=== PATIENT | male | born 1970 | race Caucasian/White ===

== ENCOUNTER 2018-04-14 11:35 | Inpatient (IN) ==
--- NOTE | 2018-04-14 11:56 | Emergency Department Note ---
Disposition Clinical Impression: Suicidal ideation Disposition: Admitted As Inpatient Condition: Good Forms: ED Satisfaction Letter Time of Disposition: 16:12 General Adult HPI - General Chief complaint: ED Psychiatric Symptoms Stated complaint: SI Time Seen by Provider: 04/14/18 11:45 Source: patient Limitations: no limitations Nursing Notes Reviewed: Yes Vital Signs Reviewed: Yes - History of Present Illness HPI Narrative: Suicidal ideation for the past month. No homicidal ideation no history of attempts however he has been admitted for suicidal ideation previously. Is not on any medication. No other complaints. Denies any hallucinations. Pain Scale: 0 - Related Data Allergies Allergy/AdvReac Type Severity Reaction Status Date / Time Sulfa (Sulfonamide Allergy Hives Verified 04/14/18 11:41 Antibiotics) calamine AdvReac Rash Verified 04/14/18 11:41 diphenhydramine AdvReac Anxiety Verified 04/14/18 11:41 [From Benadryl] All systems ED: reviewed and negative except as stated. Constitutional: Denies: fever, chills Cardiovascular: Denies: chest pain Respiratory: Denies: cough, dyspnea Gastrointestinal: Denies: abdominal pain, nausea, vomiting, diarrhea, hematemesis, melena, hematochezia Genitourinary: Denies: urgency, dysuria, frequency, hematuria Psychiatric: Reports: depression, suicidal thoughts. Denies: homicidal thoughts Past Medical History - Past Medical History Attestation: Yes The following information was validated with the patient. Source: patient Medical history: Reports: arthritis Surgical history: Reports: non-contributory, other Psychiatric history: Reports: anxiety, depression - Social History Smoking Status: Current every day smoker Smokeless Tobacco Status: No Alcohol use: Reports: rarely Drug use: Reports: none Physical Exam - General Limitations: no limitations General appearance: alert, in no apparent distress - Head Head exam: atraumatic, normocephalic, normal inspection - Eye Eye exam: Present: normal appearance, PERRL, EOMI - ENT ENT exam: normal exam, normal oropharynx, mucous membranes moist - Neck Neck exam: Present: normal inspection, full ROM, trachea midline - Chest Chest inspection: Present: normal inspection, symmetric chest wall rise - Respiratory Respiratory exam: Present: normal lung sounds bilaterally. Absent: respiratory distress, accessory muscle use - Cardiovascular Cardiovascular exam: Present: regular rate, normal rhythm, normal heart sounds - Abdominal Exam Abdominal exam: Present: soft, Non-Tender. Absent: distention, guarding, rebound, rigidity, mass - Extremities Exam Extremities exam: Present: normal inspection, normal capillary refill. Absent: pedal edema - Neurological Exam Neurological exam: Present: alert, oriented X3 - Psychiatric Psychiatric exam: Present: flat affect, suicidal ideation - Skin Skin exam: Present: warm, dry, intact, normal color Course Course Narrative: Male Pt with a history of depression and anxiety who is not on medication at this time complaining of feeling like he will hurt himself. He states he has a plan but refused to tell me about it. He denies HI or hallucinations. He does have weapons at home. He denies taking any medication or trying to harm himself this morning. He states this is been going on for about a month. Does have a recent admission to [facility] for this. Has tried several different depression and anxiety medications with no relief with them. He is resting comfortably in bed at this time. We will pink slip the patient and have 1A evaluated him. - Reevaluation(s) Reevaluation #1: Pt accepted for admission here by psych. Time: 16:11 Vital Signs Temperature 98.2 F 04/14/18 11:37 Pulse Rate 81 04/14/18 11:37 Respiratory Rate 16 04/14/18 11:37 Blood Pressure 126/82 04/14/18 11:37 O2 Sat by Pulse Oximetry 97 04/14/18 11:37 Temperature 98.2 F 04/14/18 11:37 Pulse Rate 81 04/14/18 11:37 Respiratory Rate 16 04/14/18 11:37 Blood Pressure 126/82 04/14/18 11:37 O2 Sat by Pulse Oximetry 97 04/14/18 11:37 Oxygen Delivery Oxygen Delivery Room Air Medical Decision Making - Medical Records Medical records reviewed: Yes I reviewed the patient's medical records. - Lab Data Lab results reviewed: Yes I reviewed the patient's lab results. Result diagrams: 04/14/18 12:04 04/14/18 12:04 Lab Results 04/14/18 04/14/18 04/14/18 Range/Units 12:04 12:04 12:13 WBC 10.1 (4.3-11.1) K/mcL RBC 4.94 (4.19-5.50) M/mcL Hgb 15.0 (12.9-16.9) g/dL Hct 45.4 (37.5-50.1) % MCV 91.9 (83.0-100.0) fL MCH 30.4 (28.0-33.3) pg MCHC 33.0 (31.6-35.5) g/dL RDW 12.1 (11.5-14.5) % Plt Count 268 (140-400) K/mcL MPV 10.6 (9.4-12.4) fL Immature Gran % 2.4 (0-4) % Seg Neutrophils % 65.5 % Lymphocytes % 25.5 % Monocytes % 5.2 % Eosinophils % 0.6 % Basophils % 0.8 % Neutrophils # 6.6 (1.6-8.9) K/mcL Lymphocytes # 2.6 (0.6-4.6) K/mcL Monocytes # 0.5 (0.0-1.3) K/mcL Eosinophils # 0.1 (0.0-0.6) K/mcL Basophils # 0.1 (0.0-0.2) K/mcL Sodium 135 L (136-145) mEq/L Potassium 4.3 (3.5-5.1) mEq/L Chloride 105 (98-107) mEq/L Carbon Dioxide 28 (23-29) mEq/L BUN 14 (6-20) mg/dL Creatinine 0.87 (0.70-1.30) mg/dL Est GFR ( Amer) > 60 (> 60) Est GFR (Non-Af Amer) > 60 (> 60) BUN/Creatinine Ratio 16 (6-26) Glucose 102 (70-105) mg/dL Calculated Osmolality 281 (280-300) Calcium 10.0 (8.6-10.3) mg/dL Urine Color Yellow (Yellow) Urine Clarity Clear (Clear) Urine pH 6.0 (5.0-8.0) pH Units Ur Specific [place] 1.014 (1.010-1.025) Urine Protein Negative (Neg-Trace) mg/dL Urine Glucose (UA) Normal (Normal) mg/dL Urine Ketones Negative (Negative) mg/dL Urine Blood Negative (Negative) Urine Nitrite Negative (Negative) Urine Bilirubin Negative (Negative) Urine Urobilinogen Normal (Normal) mg/dL Ur Leukocyte Esterase Negative (Negative) Salicylates < 2.5 L (15.0-30.0) mg/dL Urine Opiates Screen (Zwzlqx=356) ng/mL Acetaminophen < 10 L (10-20) mcg/mL Ur Barbiturates Screen (Hzidey=072) ng/mL Ur Phencyclidine Scrn (Cutoff=25) ng/mL Ur Amphetamines Screen (Mfmjve=6347) ng/mL U Benzodiazepines Scrn (Wceyix=427) ng/mL Urine Cocaine Screen (Cutoff= 300) ng/mL U Marijuana (THC) Screen (Cutoff = 50) ng/mL Ur Drug Screen Interp Ethyl Alcohol < 10 (Less than 10) mg/dL 04/14/18 Range/Units 12:13 WBC (4.3-11.1) K/mcL RBC (4.19-5.50) M/mcL Hgb (12.9-16.9) g/dL Hct (37.5-50.1) % MCV (83.0-100.0) fL MCH (28.0-33.3) pg MCHC (31.6-35.5) g/dL RDW (11.5-14.5) % Plt Count (140-400) K/mcL MPV (9.4-12.4) fL Immature Gran % (0-4) % Seg Neutrophils % % Lymphocytes % % Monocytes % % Eosinophils % % Basophils % % Neutrophils # (1.6-8.9) K/mcL Lymphocytes # (0.6-4.6) K/mcL Monocytes # (0.0-1.3) K/mcL Eosinophils # (0.0-0.6) K/mcL Basophils # (0.0-0.2) K/mcL Sodium (136-145) mEq/L Potassium (3.5-5.1) mEq/L Chloride (98-107) mEq/L Carbon Dioxide (23-29) mEq/L BUN (6-20) mg/dL Creatinine (0.70-1.30) mg/dL Est GFR ( Amer) (> 60) Est GFR (Non-Af Amer) (> 60) BUN/Creatinine Ratio (6-26) Glucose (70-105) mg/dL Calculated Osmolality (280-300) Calcium (8.6-10.3) mg/dL Urine Color (Yellow) Urine Clarity (Clear) Urine pH (5.0-8.0) pH Units Ur Specific [place] (1.010-1.025) Urine Protein (Neg-Trace) mg/dL Urine Glucose (UA) (Normal) mg/dL Urine Ketones (Negative) mg/dL Urine Blood (Negative) Urine Nitrite (Negative) Urine Bilirubin (Negative) Urine Urobilinogen (Normal) mg/dL Ur Leukocyte Esterase (Negative) Salicylates (15.0-30.0) mg/dL Urine Opiates Screen Negative (Bxrnxc=450) ng/mL Acetaminophen (10-20) mcg/mL Ur Barbiturates Screen Negative (Acwniy=762) ng/mL Ur Phencyclidine Scrn Negative (Cutoff=25) ng/mL Ur Amphetamines Screen Negative (Mzpqtm=7782) ng/mL U Benzodiazepines Scrn Negative (Jdiegb=966) ng/mL Urine Cocaine Screen Negative (Cutoff= 300) ng/mL U Marijuana (THC) Screen Positive H (Cutoff = 50) ng/mL Ur Drug Screen Interp See Below Ethyl Alcohol (Less than 10) mg/dL Attestation Statement - Attestation Attestation: Patient was seen with resident physician. I reviewed the history, physical, assessment and plan, and agree with the findings. I also personally evaluated this patient and had [id number] time with this patient. 47-year-old male presents emergency department with suicidal ideation for slightly over a month. Patient says he had history of same. He says been getting progressively worse over the last 30 days. He does have a plan but he refused share with me. He does not have homicidal ideation. He denies other medical complaints or symptoms at this time. He has been seen by psychiatry in the past. Review of systems as above remainder negative. Physical exam vital signs are stable. ENT is unremarkable. Heart regular rhythm and rate. Lungs clear. Abdomen soft nontender. Extremities unremarkable. Neurologically intact. Psych depressed. ED course. We will do a medical clearance for the psychiatry department. Once as complete we will have psychiatry come evaluate the patient for possible admission. Patient will be placed on a 48-hour nonvoluntary admission status based on his initial presentation. Hemodynamically he was stable in the emergency department. After psychiatric evaluation, the determination to admit to our psychiatric unit was made. Hemodynamically he was stable and medically cleared for admission to the psychiatric portion of the hospital. Agree with resident physician assessment and plan.
[2018-04-14 12:17] LABS: Basophils # 0.1 K/mcL (0.0-0.2); Basophils % 0.8 %; Eosinophils # 0.1 K/mcL (0.0-0.6); Eosinophils % 0.6 %; Hematocrit 45.4 % (37.5-50.1); Immature Granulocytes % 2.4 % (0-4); Lymphocytes # 2.6 K/mcL (0.6-4.6); Lymphocytes % 25.5 %; Mean Corpuscular Hemoglobin 30.4 pg (28.0-33.3); Mean Corpuscular Volume 91.9 fL (83.0-100.0); Mean Platelet Volume 10.6 fL (9.4-12.4); Monocytes # 0.5 K/mcL (0.0-1.3); Monocytes % 5.2 %; Neutrophils # 6.6 K/mcL (1.6-8.9); Platelet Count 268 K/mcL (140-400); Red Blood Count 4.94 M/mcL (4.19-5.50); Red Cell Distribution Width 12.1 % (11.5-14.5); Segmented Neutrophils % 65.5 %
[2018-04-14 12:25] LABS: Bilirubin,Urine Negative (Negative); Blood,Urine Negative (Negative); Clarity,Urine Clear (Clear); Color,Urine Yellow (Yellow); Glucose,Urine (UA) Normal (Normal); Ketones,Urine Negative (Negative); Leukocyte Esterase,Urine Negative (Negative); Nitrite,Urine Negative (Negative); Protein,Urine Negative (Neg-Trace); Specific Gravity,Urine 1.014 (1.010-1.025); Urobilinogen,Urine Normal (Normal)
[2018-04-14 12:36] LABS: Acetaminophen < 10 mcg/mL (10-20); BUN/Creatinine Ratio 16 (6-26); Blood Urea Nitrogen 14 mg/dL (6-20); Carbon Dioxide 28 mEq/L (23-29); Chloride 105 mEq/L (98-107); Ethanol < 10 mg/dL (Less than 10); Glucose 102 mg/dL (70-105); Osmolality,Calculated 281 (280-300); Potassium 4.3 mEq/L (3.5-5.1); Salicylate < 2.5 mg/dL (15.0-30.0); Sodium 135 mEq/L (136-145); eGFR For Non-African Americans > 60 (> 60)
[2018-04-14 12:40] LABS: Amphetamine Screen,Urine Negative ng/mL (Cutoff=1000); Barbiturate Screen,Urine Negative ng/mL (Cutoff=200); Benzodiazepines Screen,Urine Negative ng/mL (Cutoff=200); Cannabinoid Screen,Urine Positive ng/mL (Cutoff = 50); Cocaine Screen,Urine Negative ng/mL (Cutoff= 300); Opiate Screen,Urine Negative ng/mL (Cutoff=300); Phencyclidine Screen,Urine Negative ng/mL (Cutoff=25)
[2018-04-14] MEDS ORDERED: MOM Conc 10 ML UD.LIQ PO PRN (16:40)
[2018-04-14] MEDS ORDERED: Ibuprofen 400 MG TABLET PO PRN (16:40)
[2018-04-14] MEDS ORDERED: *HR* LORazepam 1 MG TABLET PO PRN (16:40)
[2018-04-14] MEDS ORDERED: *HR* LORazepam 2 MG/ML VIAL IM PRN (16:40)
[2018-04-14] MEDS ORDERED: Haloperidol Lactate 5 MG/ML VIAL IM PRN (16:40)
[2018-04-14] MEDS ORDERED: Mag Hydrox/Al Hydrox/Simeth 30 ML UDC PO PRN (16:40)
--- NOTE | 2018-04-15 08:53 | Psychiatry History & Physical ---
Date of Encounter: 04/15/18 Time of Encounter: 08:00 History of Present Illness Patient Stated Chief Complaint: I am having thoughts to harm myself again Medicare Admission Attestation: For traditional Medicare patients the provided hospital inpatient services are reasonable and necessary and in the case of services not specified as inpatient -only under 42 CFR 419.22 (n), that they are appropriately provided as inpatient services in accordance 42 CFR 412.3. For Critical Access Hospital the patient may reasonably be expected to be discharged or transferred to a hospital within 96 hours after admission to the Critical Access Hospital. Admitted From: Emergency Dept Plans for Post Hospital Care: Home History of Present Illness: Mr. Parekh is a 47 year old male Male Pt with a history of depression and anxiety who is not on medication at this time complaining of feeling like he will hurt himself. He states he has a plan but refused to tell me about it. He denies HI or hallucinations. He does have weapons at home. He denies taking any medication or trying to harm himself this morning. He states this is been going on for about a month. Does have a recent admission to [facility] for this. Has tried several different depression and anxiety medications with no relief with them. He is resting comfortably in bed at this time. We will pink slip the patient and have 1A evaluated him. Pt is a 47 yo ,, male, never , with no children, who presents for bipolar depression with suicidal ideations. Pt noted he currently lives in [place] with some friends. Pt noted recent exacerbation of depression with suicidal ideations. Pt states when I came in I thought I wanted to hurt myself. Pt noted I came in because I needed some help and cannot get these feelings to stop.....I need to get started on medications. I feel safe and comfortable on the unit. Pt denied any side effects to current medications. Pt was in agreement with current treatment plan. Pt noted that he is doing alright today. Pt noted he slept 6 hours broken night. Pt noted his appetite is its down. Pt rated his depression a 5, on a scale of zero to ten with ten being the worst and zero being none. Pt rate his anxiety a 6, on the same scale. Pt denied any auditory or visual hallucinations. Pt denied any current thoughts to harm anyone else. Pt continues to note fleeting suicidal ideations. Pt noted that his mother is Past due to cardiac and COPD issues, she had schizoprenia. PT noted he doesnt communicate with his father so he has no knowledge of how he is doing. Pt noted that his highest level of education is 10th grade with a GED and some college. Pt noted hx of inpt psychiatric hospitalizations. Pt noted hx of previous suicide attempts. Pt denied any family hx of suicides. PT noted his mother and maternal aunts were schizophrenic. Pt denied TBIs, Seizures, HEP C or HIV. AIMS=0 MSE: Alert and Oriented x3 Appearance: appropriately groomed dressed in civilian attire Behavior: Polite, friendly, courteous Speech: fluent, normal tone, normal rate Mood: depressed Affect: mood congruent Thought content: no HI noted, passive SI noted, no delusions noted Psychosis: none noted, currently does not appear to be responding to internal stimuli. Thought Process: linear logical, goal directed Judgment: fair/questionable. Insight: fair/questionable. Assessment/Plan 1.Interval hx 2.Continue current medications 3.Review current labs 4.Pt had an opportunity to ask questions and discuss current treatment plan. 5.Supportive therapy was provided 6.Pt encouraged to consider group or individual therapy 7.Pt was in agreement with treatment plan. 8.Pt was educated on the risks benefits and side effects of current medications. 9. Start lamictal 25 mg PO QHS for mood (pt educated on risks benifits and side- effects of medication and agreed to medication.) 10. Start lurasidone 20 mg PO QAM for mood (pt educated on risks benifits and side-effects of medication and agreed to medication.) Past Med Surg Social Fam HX - Past Medical History Medical history: arthritis - Past Psychiatric History Psychiatric history: Reports: bipolar, depression, prior suicide attempt, previous psychiatric hospitalization Family psychiatric history: Yes Family Psychiatric History Details: mother and maternal aunt schizophrenic Family History of Suicide: None - Past Surgical History Surgical History: non-contributory, other - Social History Smoking Status: Current every day smoker Smokeless Tobacco Status: No Alcohol use: rarely Drug use: none - Family History Mother Adopted: [place]: Krystle Parekh Family Member Ethnicity: Non- Living Status: Age at : 62 Cause of : COPD and CHF Hx Family Cardiac Disorders: Yes (CHF) Hx Family Respiratory Disorders: Yes (COPD) Hx Family Cancer: No Hx Family GI Disorders: Yes Hx Family Genitourinary Disorders: Yes Hx Family Endocrine Disorder: Yes Hx Family Musculoskeletal Disorders: No Hx Family Neuromuscular Disorders: No Hx Family Neurologic Disorders: No Hx Family HEENT Disorders: Yes (trach) Hx Family Autoimmune Disorders: No Hx Family Reproductive Disorders: No Hx Family Psychosocial Disorders: Yes (depression and schizophrenia) Hx Family Medical Disorders: Yes Medications & Allergies Pregabalin [Lyrica] 50 mg PO BID 04/14/18 [History] 3 Allergy/AdvReac Type Severity Reaction Status Date / Time Sulfa (Sulfonamide Allergy Hives Verified 04/14/18 11:41 Antibiotics) calamine AdvReac Rash Verified 04/14/18 11:41 diphenhydramine AdvReac Anxiety Verified 04/14/18 11:41 [From Benadryl] Review of Systems Constitutional: Denies: fever, chills, weakness, weight change Eyes: Denies: eye pain, vision change Ears, Nose, Throat: Denies: ear pain, throat pain, dental pain, hearing loss, congestion Cardiovascular: Denies: chest pain, palpitations, dyspnea on exertion Respiratory: Denies: cough, dyspnea, wheezes Gastrointestinal: Denies: abdominal pain, nausea, vomiting, diarrhea, constipation Genitourinary male: Denies: urgency, dysuria, frequency, genital lesions Musculoskeletal: Denies: joint swelling, joint pain Integumentary: Denies: rash, lesions, pruritus Neurological: Denies: headache, weakness, numbness, memory loss Psychiatric: Reports: depression, anxiety, abnormal sleep pattern, suicidal ideation Endocrine: Denies: fatigue, heat or cold intolerance Hematologic/Lymphatic: Denies: easy bruising, lymphadenopathy Allergic/Immunologic: Denies: urticaria, itchy eyes Exam - HEENT Head exam IM: Present: atraumatic Eye exam IM: Present: EOMI, normal appearance, PERRL ENT exam IM: Present: normal exam - Neurological Neurological exam: Present: CN II-XII intact - Respiratory Respiratory exam IM: Present: CTAB - GI/Abdominal GI/Abdominal exam IM: Present: normal bowel sounds, soft. Absent: tenderness - Extremities Extremities exam IM: Present: full ROM - Skin Skin exam IM: Present: dry, warm - Constitutional Vitals: Temp Pulse Resp BP Pulse Ox 97.7 F 74 16 135/88 97 04/14/18 21:00 04/14/18 21:00 04/14/18 21:00 04/14/18 21:00 04/14/18 11:37 General appearance: age & developmentally appropriate, well-groomed, well- nourished - Musculoskeletal Gait: normal Station: relaxed Strength & Tone: normal for patient - Psychiatric Patient Orientation: Yes Person, Yes Time, Yes Place Level of alertness: Alert Behavior: calm, cooperative, withdrawn Psychomotor activity: Slowed Eye Contact: Maintains Eye Contact Mood Description: Depressed Affect description: congruent with mood, flat Speech Volume: Soft/Quiet Speech pattern: normal rate, normal rhythm, normal tone, fluent Language & Vocabulary: consistent with education Thought Process: Intact, Logical, Linear, Goal Oriented Thought Content: Yes Suicidal ideation, No Homicidal ideation Perceptual Disturbances: No Auditory hallucinations, No Visual hallucinations Attention Span Ability: Capable of Focused Attention Memory Description: Grossly Intact Patient Reliability: Reliable Historian Fund of knowledge: Yes average Intelligence Estimate: Average Judgment: Limited Insight: Partial Results - Labs Labs: Laboratory Last Values WBC 10.1 K/mcL (4.3-11.1) 04/14/18 12:04 RBC 4.94 M/mcL (4.19-5.50) 04/14/18 12:04 Hgb 15.0 g/dL (12.9-16.9) 04/14/18 12:04 Hct 45.4 % (37.5-50.1) 04/14/18 12:04 MCV 91.9 fL (83.0-100.0) 04/14/18 12:04 MCH 30.4 pg (28.0-33.3) 04/14/18 12:04 MCHC 33.0 g/dL (31.6-35.5) 04/14/18 12:04 RDW 12.1 % (11.5-14.5) 04/14/18 12:04 Plt Count 268 K/mcL (140-400) 04/14/18 12:04 MPV 10.6 fL (9.4-12.4) 04/14/18 12:04 Immature Gran % 2.4 % (0-4) 04/14/18 12:04 Seg Neutrophils % 65.5 % 04/14/18 12:04 Lymphocytes % 25.5 % 04/14/18 12:04 Monocytes % 5.2 % 04/14/18 12:04 Eosinophils % 0.6 % 04/14/18 12:04 Basophils % 0.8 % 04/14/18 12:04 Neutrophils # 6.6 K/mcL (1.6-8.9) 04/14/18 12:04 Lymphocytes # 2.6 K/mcL (0.6-4.6) 04/14/18 12:04 Monocytes # 0.5 K/mcL (0.0-1.3) 04/14/18 12:04 Eosinophils # 0.1 K/mcL (0.0-0.6) 04/14/18 12:04 Basophils # 0.1 K/mcL (0.0-0.2) 04/14/18 12:04 Sodium 135 mEq/L (136-145) L 04/14/18 12:04 Potassium 4.3 mEq/L (3.5-5.1) 04/14/18 12:04 Chloride 105 mEq/L (98-107) 04/14/18 12:04 Carbon Dioxide 28 mEq/L (23-29) 04/14/18 12:04 BUN 14 mg/dL (6-20) 04/14/18 12:04 Creatinine 0.87 mg/dL (0.70-1.30) 04/14/18 12:04 Est GFR ( Amer) > 60 (> 60) 04/14/18 12:04 Est GFR (Non-Af Amer) > 60 (> 60) 04/14/18 12:04 BUN/Creatinine Ratio 16 (6-26) 04/14/18 12:04 Glucose 102 mg/dL (70-105) 04/14/18 12:04 Calculated Osmolality 281 (280-300) 04/14/18 12:04 Calcium 10.0 mg/dL (8.6-10.3) 04/14/18 12:04 Urine Color Yellow (Yellow) 04/14/18 12:13 Urine Clarity Clear (Clear) 04/14/18 12:13 Urine pH 6.0 pH Units (5.0-8.0) 04/14/18 12:13 Ur Specific [place] 1.014 (1.010-1.025) 04/14/18 12:13 Urine Protein Negative mg/dL (Neg-Trace) 04/14/18 12:13 Urine Glucose (UA) Normal mg/dL (Normal) 04/14/18 12:13 Urine Ketones Negative mg/dL (Negative) 04/14/18 12:13 Urine Blood Negative (Negative) 04/14/18 12:13 Urine Nitrite Negative (Negative) 04/14/18 12:13 Urine Bilirubin Negative (Negative) 04/14/18 12:13 Urine Urobilinogen Normal mg/dL (Normal) 04/14/18 12:13 Ur Leukocyte Esterase Negative (Negative) 04/14/18 12:13 Salicylates < 2.5 mg/dL (15.0-30.0) L 04/14/18 12:04 Urine Opiates Screen Negative ng/mL (Jhctky=423) 04/14/18 12:13 Acetaminophen < 10 mcg/mL (10-20) L 04/14/18 12:04 Ur Barbiturates Screen Negative ng/mL (Zaoyhc=597) 04/14/18 12:13 Ur Phencyclidine Scrn Negative ng/mL (Cutoff=25) 04/14/18 12:13 Ur Amphetamines Screen Negative ng/mL (Afegki=9693) 04/14/18 12:13 U Benzodiazepines Scrn Negative ng/mL (Ayzurz=954) 04/14/18 12:13 Urine Cocaine Screen Negative ng/mL (Cutoff= 300) 04/14/18 12:13 U Marijuana (THC) Screen Positive ng/mL (Cutoff = 50) H 04/14/18 12:13 Ur Drug Screen Interp See Below 04/14/18 12:13 Ethyl Alcohol < 10 mg/dL (Less than 10) 04/14/18 12:04 Assessment and Plan (1) Bipolar disorder current episode depressed Current visit: Yes Status: Acute Plan: Admit inpatient for safety and stabilization, Close observation, Suicide Precautions per unit protocol, Encourage participation in unit milieu, Group Therapy, Monitor sleep, Monitor appetite Risks, benefits, side effects, alternatives discussed w/pt: Yes Patient agreeable to treatment: Yes Plans for Post Hospital Care: Home Qualifiers: Current episode severity: severe Psychotic features: without psychotic features Qualified Code(s): F31.4 - Bipolar disorder, current episode depressed, severe, without psychotic features (2) Anxiety Current visit: Yes Status: Acute Plan: Admit inpatient for safety and stabilization, Close observation, Suicide Precautions per unit protocol, Encourage participation in unit milieu, Group Therapy, Monitor sleep, Monitor appetite Risks, benefits, side effects, alternatives discussed w/pt: Yes Patient agreeable to treatment: Yes Plans for Post Hospital Care: Home (3) Suicidal ideation Current visit: Yes Status: Acute Plan: Admit inpatient for safety and stabilization, Close observation, Suicide Precautions per unit protocol, Encourage participation in unit milieu, Group Therapy, Monitor sleep, Monitor appetite Risks, benefits, side effects, alternatives discussed w/pt: Yes Patient agreeable to treatment: Yes Plans for Post Hospital Care: Home
[2018-04-15] MEDS: Lurasidone 20 MG TABLET PO SCH (09:57)
[2018-04-15] MEDS: Nicotine 2 MG GUM BC PRN ×2 (09:58→17:40)
[2018-04-15] MEDS: hydrOXYzine pamoate 25 MG CAPSULE PO PRN (20:58)
[2018-04-15] MEDS: traZODone 50 MG TABLET PO PRN (20:58)
[2018-04-15] MEDS: lamoTRIgine 25 MG TABLET PO SCH (20:58)
[2018-04-16] MEDS: Lurasidone 20 MG TABLET PO SCH (09:03)
--- NOTE | 2018-04-16 10:13 | Psychiatry Progress Note ---
Date of Encounter: 04/16/18 Time of Encounter: 09:45 Subjective Interval history: Pt is a 47 yo ,, male, never , with no children, who presents for bipolar depression with suicidal ideations. Pt noted he currently lives in [place] with some friends. Pt noted recent exacerbation of depression with suicidal ideations. Pt noted he is doing "much better today. Pt noted "I feel safe and comfortable on the unit." Pt denied any side effects to current medications. Pt was in agreement with current treatment plan. Pt noted that he is doing alright today. Pt noted he slept 6 hours broken night. Pt noted his appetite is better. Pt rated his depression a 5, on a scale of zero to ten with ten being the worst and zero being none. Pt rate his anxiety a 5, on the same scale. Pt denied any auditory or visual hallucinations. Pt denied any current thoughts to harm himself or anyone else. AIMS=0, no TD noted Assessment/Plan 1.Interval hx 2.Continue current medications 3.Review current labs 4.Pt had an opportunity to ask questions and discuss current treatment plan. 5.Supportive therapy was provided 6.Pt encouraged to consider group or individual therapy 7.Pt was in agreement with treatment plan. 8.Pt was educated on the risks benefits and side effects of current medications. 9. Continue lamictal 25 mg PO QHS for mood (pt educated on risks benifits and side-effects of medication and agreed to medication.) 10. Continue lurasidone 20 mg PO QAM for mood (pt educated on risks benifits and side-effects of medication and agreed to medication.) Review of Systems Constitutional: Denies: fever, chills, weakness, weight change Eyes: Denies: eye pain, vision change Ears, Nose, Throat: Denies: ear pain, throat pain, dental pain, hearing loss, congestion Cardiovascular: Denies: chest pain, palpitations, dyspnea on exertion Respiratory: Denies: cough, dyspnea, wheezes Gastrointestinal: Denies: abdominal pain, nausea, vomiting, diarrhea, constipation Musculoskeletal: Denies: joint swelling, joint pain Neurological: Denies: headache, weakness, numbness, memory loss Psychiatric: Reports: depression, anxiety, abnormal sleep pattern, suicidal ideation Results - Vital Signs Vital Signs: Temp Pulse Resp BP Pulse Ox 97.4 F L 85 18 118/84 97 04/16/18 10:07 04/16/18 10:07 04/16/18 10:07 04/16/18 10:07 04/16/18 10:07 Assessment and Plan (1) Bipolar disorder current episode depressed Current visit: Yes Status: Acute Risks, benefits, side effects, alternatives discussed w/pt: Yes Patient agreeable to treatment: Yes Qualifiers: Current episode severity: severe Psychotic features: without psychotic features Qualified Code(s): F31.4 - Bipolar disorder, current episode depressed, severe, without psychotic features (2) Anxiety Current visit: Yes Status: Acute Risks, benefits, side effects, alternatives discussed w/pt: Yes Patient agreeable to treatment: Yes (3) Suicidal ideation Current visit: Yes Status: Acute Risks, benefits, side effects, alternatives discussed w/pt: Yes Patient agreeable to treatment: Yes Consult Discharge Plan - Plan Additional Instructions: Coordinate follow up outpt mental health appointment Referrals: NONE,PCP [Primary Care Provider] - Psychiatry Exam - Constitutional Vitals: Temp Pulse Resp BP Pulse Ox 97.4 F L 85 18 118/84 97 04/16/18 10:07 04/16/18 10:07 04/16/18 10:07 04/16/18 10:07 04/16/18 10:07 General appearance: age & developmentally appropriate, well-groomed, well- nourished - Musculoskeletal Gait: normal Station: relaxed Strength & Tone: normal for patient - Psychiatric Patient Orientation: Yes Person, Yes Time, Yes Place Level of alertness: Alert Behavior: calm, cooperative Psychomotor activity: Normal Eye Contact: Maintains Eye Contact Mood Description: Euthymic/stable Affect description: congruent with mood, full range Speech Volume: Normal Speech pattern: normal rate, normal rhythm, normal tone, fluent, spontaneous Language & Vocabulary: consistent with education Thought Process: Linear, Goal Oriented Thought Content: No Suicidal ideation, No Homicidal ideation, No Overt delusions Perceptual Disturbances: No Auditory hallucinations, No Visual hallucinations Attention Span Ability: Capable of Focused Attention Memory Description: Grossly Intact Patient Reliability: Reliable Historian Fund of knowledge: Yes abstraction ability, Yes aware of current events Intelligence Estimate: Average Judgment: Limited Insight: Partial
[2018-04-16] MEDS: lamoTRIgine 25 MG TABLET PO SCH (20:33)
[2018-04-16] MEDS: hydrOXYzine pamoate 25 MG CAPSULE PO PRN (20:33)
[2018-04-16] MEDS: traZODone 50 MG TABLET PO PRN (20:33)
[2018-04-16] MEDS: Nicotine 2 MG GUM BC PRN (20:33)
[2018-04-17] MEDS: Lurasidone 20 MG TABLET PO SCH (09:19)
--- NOTE | 2018-04-17 09:27 | Psychiatry Progress Note ---
Date of Encounter: 04/17/18 Time of Encounter: 09:15 Subjective Interval history: Pt is a 47 yo ,, male, never , with no children, who presents for bipolar depression with suicidal ideations. Pt noted recent exacerbation of depression with suicidal ideations however feels the suicidal ideation has resolved and the depression has reduced.. Pt noted he is doing "much better today." Pt noted the he continues to feel safe and comfortable on the unit. Pt denied any side effects to current medications. Pt was in agreement with current treatment plan. Pt noted that he is doing alright today. Pt noted he slept 8 hours broken night. Pt noted his appetite is better. Pt rated his depression a 4, on a scale of zero to ten with ten being the worst and zero being none. Pt rate his anxiety a 5, on the same scale. Pt denied any auditory or visual hallucinations. Pt denied any current thoughts to harm himself or anyone else. AIMS=0, no TD noted Assessment/Plan 1.Interval hx 2.Continue current medications 3.Review current labs 4.Pt had an opportunity to ask questions and discuss current treatment plan. 5.Supportive therapy was provided 6.Pt encouraged to consider group or individual therapy 7.Pt was in agreement with treatment plan. 8.Pt was educated on the risks benefits and side effects of current medications. 9. Continue lamictal 25 mg PO QHS for mood (pt educated on risks benifits and side-effects of medication and agreed to medication.) 10. Change lurasidone 20 mg PO to QHS for mood (pt educated on risks benifits and side-effects of medication and agreed to medication.) 11. Start Gabapentin 300 mg PO BID for anxiety/mood. Review of Systems Psychiatric: Reports: depression, anxiety, abnormal sleep pattern, suicidal ideation Results - Vital Signs Vital Signs: Temp Pulse Resp BP Pulse Ox 97.8 F 96 18 115/80 97 04/16/18 20:21 04/16/18 20:21 04/16/18 20:21 04/16/18 20:21 04/16/18 10:07 Assessment and Plan (1) Bipolar disorder current episode depressed Current visit: Yes Status: Acute Risks, benefits, side effects, alternatives discussed w/pt: Yes Patient agreeable to treatment: Yes Qualifiers: Current episode severity: severe Psychotic features: without psychotic features Qualified Code(s): F31.4 - Bipolar disorder, current episode depressed, severe, without psychotic features (2) Anxiety Current visit: Yes Status: Acute Risks, benefits, side effects, alternatives discussed w/pt: Yes Patient agreeable to treatment: Yes (3) Suicidal ideation Current visit: Yes Status: Acute Risks, benefits, side effects, alternatives discussed w/pt: Yes Patient agreeable to treatment: Yes Consult Discharge Plan - Plan Referrals: [facility] [Outside] - 05/02/18 10:00 am (The above appointment is with Holli Madrid, counselor at [facility]. Please arrive 30 minutes early to this appointment to complete paperwork. Your first appointment will be thorough and the total appointment time will take approximately 1 hours. You will be completing paperwork, meeting with a counselor and developing a treatment plan. You will receive follow- up appointments for on-going services, which could include community support, mental health and substance abuse counseling, and groups/ partial hospitalization programming. Please bring the following with you to your first visit to the clinic: 1) proof of income (two consecutive pay stubs, social security award letter, bank statement, statement letter from [employer], child support statement, IRS 1040 or W2 form, or a statement from the person who financially supports you stating they help provide for your basic needs), 2 ) photo ID, and 3) your insurance card. The above appointment reflects first availability. You may contact the office regularly to check for cancellations that may allow you to be seen sooner.) [facility] [Outside] - 05/16/18 10:00 am (The above appointment is with Sherry Ambrocio for outpatient psychiatric assessment and medication management services. Please arrive 30 minutes early for first time psychiatry appointments, and 15 minutes early for follow-up psychiatry appointments. Please bring your photo ID (bring proof of address if you do not have an ID), insurance card and medication list. The above appointment(s) reflects first availability. You may contact the office regularly to check for cancellations that may allow you to be seen sooner. ) Psychiatry Exam - Constitutional Vitals: Temp Pulse Resp BP Pulse Ox 97.8 F 96 18 115/80 97 04/16/18 20:21 04/16/18 20:21 04/16/18 20:21 04/16/18 20:21 04/16/18 10:07
[2018-04-17 11:00] VITALS: BP 117/88
[2018-04-17] MEDS ORDERED: Gabapentin 300 MG CAPSULE PO SCH (21:00)
[2018-04-18] MEDS ORDERED: Lurasidone 20 MG TABLET PO SCH (20:00)
--- NOTE | 2018-04-22 14:15 | Discharge Summary ---
Date of Encounter: 04/17/18 Time of Encounter: 12:00 Diagnosis - Discharge Diagnosis (1) Bipolar disorder current episode depressed Status: Acute Qualifiers: Current episode severity: severe Psychotic features: without psychotic features Qualified Code(s): F31.4 - Bipolar disorder, current episode depressed, severe, without psychotic features (2) Anxiety Status: Acute (3) Suicidal ideation Status: Acute Medications - Discharge Medications Pregabalin [Lyrica] 50 mg PO BID 04/14/18 [History] 3 Allergy/AdvReac Type Severity Reaction Status Date / Time Sulfa (Sulfonamide Allergy Hives Verified 04/14/18 11:41 Antibiotics) calamine AdvReac Rash Verified 04/14/18 11:41 diphenhydramine AdvReac Anxiety Verified 04/14/18 11:41 [From Benadryl] Provider Date of admission: 04/15/18 09:05 Primary care physician: PCP NONE Discharging clinician: Konrad Wilks Psychiatry Exam - Constitutional Vitals: Temp Pulse Resp BP Pulse Ox 96.7 F L 88 16 117/88 97 04/17/18 09:00 04/17/18 09:00 04/17/18 09:00 04/17/18 09:00 04/16/18 10:07 General appearance: age & developmentally appropriate, well-groomed, well- nourished - Musculoskeletal Gait: normal Station: relaxed Strength & Tone: normal for patient - Psychiatric Patient Orientation: Yes Person, Yes Time, Yes Place Level of alertness: Alert Behavior: calm, cooperative Psychomotor activity: Normal Eye Contact: Maintains Eye Contact Mood Description: Euthymic/stable Affect description: congruent with mood, full range Speech Volume: Normal Speech pattern: normal rate, normal rhythm, normal tone, fluent, spontaneous Language & Vocabulary: consistent with education Thought Process: Linear, Goal Oriented Thought Content: No Suicidal ideation, No Homicidal ideation, No Overt delusions Perceptual Disturbances: No Auditory hallucinations, No Visual hallucinations Attention Span Ability: Capable of Focused Attention Memory Description: Grossly Intact Patient Reliability: Reliable Historian Fund of knowledge: Yes abstraction ability, Yes aware of current events Intelligence Estimate: Average Judgment: Limited Insight: Partial Hospital Course Hospital course: Pt is a 47 yo ,, male, never , with no children, who presents for bipolar depression with suicidal ideations. Pt noted recent exacerbation of depression with suicidal ideations however feels the suicidal ideation has resolved and the depression has reduced.. Pt noted he is doing "really good I am ready to go home...." Pt noted the he continues to feel safe and comfortable for discharge home. Pt denied any side effects to current medications. Pt was in agreement with current treatment plan. Pt noted that he is doing alright today. Pt noted he slept 8 hours broken night. Pt noted his appetite is better. Pt rated his depression a 2, on a scale of zero to ten with ten being the worst and zero being none. Pt rate his anxiety a 2, on the same scale. Pt denied any auditory or visual hallucinations. Pt denied any current thoughts to harm himself or anyone else. Pt noted a significant reeducation in his depression and anxiety during his stay on [address] Pt noted that se slowly improved to the point that he was comfortable and safe to return home. Pt noted he felt his medications were working well and denied any current side effects. Treatment team encouraged to stay out of bed and try to find activities to do, verbalized understanding. Pt reported that he felt safe on the unit and comfortable for discharge home. Pt Denied suicidal/homicidal ideations, denied any problems or concerns with medications or side effects. Pt voiced progression towards treatment goals. Denied any immediate needs or concerns. Pt throughout his stay on [address] pt felt like his medications were working and felt comfortable being discharged on these medications. Pt was advised to take all medications as prescribed, follow up with all scheduled appointments and abstain from any alcohol or illicit substances. Pt was in agreement. Pt felt safe and comfortable to be discharged to his home to follow up with outpt mental health. Pt was very optimistic bout his D/C and returning to his home. Pt denies any auditory or visual hallucinations. Pt denied any thoughts to harm himself or anyone else. Pt felt safe and comfortable for D/C. The Pt was educated primarily by verbal means about his diagnoses and their manifestations in his life. The option for treatment including group individual therapy programming was offered to him and the use of medications with all their potential risks, benefits, and side-effects were discussed with the pt at length. Pt was given the opportunity to ask questions and he participated in the treatment and planning process. Pt felt ready and eager to be discharged from the from the 1A unit. Pt felt he was safe for this disposition. Pt was considered to be able to participate in informed consent and decision-making with respect to medical, legal and financial issues at the time of his discharge from the Center AIMS=0, no TD noted Assessment/Plan 1.Interval hx 2.Continue current medications 3.Review current labs 4.Pt had an opportunity to ask questions and discuss current treatment plan. 5.Supportive therapy was provided 6.Pt encouraged to consider group or individual therapy 7.Pt was in agreement with treatment plan. 8.Pt was educated on the risks benefits and side effects of current medications. 9. Continue lamictal 25 mg PO QHS for mood (pt educated on risks benifits and side-effects of medication and agreed to medication.) 10. Change lurasidone 20 mg PO to QHS for mood (pt educated on risks benifits and side-effects of medication and agreed to medication.) 11. D/C pt home 12. Follow up with all schedulced appointments. 13. abstain from any alcohol or illicit substances. Time spent discussing smoking cessation with patient: 3 to 10 minutes Does patient wish to continue nicotine replacement upon disc: No - Time Spent with Patient Total time spent providing and/or coordinating discharge services: Greater than 30 minutes Assessment and Plan - Patient/Caregiver Discharge Instructions Activity: resume usual activities as tolerated Diet: regular diet - Follow up Plan Follow up with: [facility] [Outside] - 05/02/18 10:00 am (The above appointment is with Holli Madrid, counselor at [facility]. Please arrive 30 minutes early to this appointment to complete paperwork. Your first appointment will be thorough and the total appointment time will take approximately 1 hours. You will be completing paperwork, meeting with a counselor and developing a treatment plan. You will receive follow- up appointments for on-going services, which could include community support, mental health and substance abuse counseling, and groups/ partial hospitalization programming. Please bring the following with you to your first visit to the clinic: 1) proof of income (two consecutive pay stubs, social security award letter, bank statement, statement letter from [facility], child support statement, IRS 1040 or W2 form, or a statement from the person who financially supports you stating they help provide for your basic needs), 2 ) photo ID, and 3) your insurance card. The above appointment reflects first availability. You may contact the office regularly to check for cancellations that may allow you to be seen sooner.) [facility] [Outside] - 05/16/18 10:00 am (The above appointment is with Sherry Ambrocio for outpatient psychiatric assessment and medication management services. Please arrive 30 minutes early for first time psychiatry appointments, and 15 minutes early for follow-up psychiatry appointments. Please bring your photo ID (bring proof of address if you do not have an ID), insurance card and medication list. The above appointment(s) reflects first availability. You may contact the office regularly to check for cancellations that may allow you to be seen sooner. ) Functional capacity at discharge: independent ambulation Overall status at discharge: patient is back to baseline Disposition: Home, Self-Care Quality - Multiple Antipsychotics Patient discharged on 2 or more antipsychotic medications: No - Justification Documentation of: Other justification (pt is not on 2 antipyschotics) Procedures - Procedures Procedures: Medication Management, Crisis Stabilization, Supportive Therapy, Group Therapy, Psychoeducational Therapy
== END 2018-04-17 14:30 | disposition home or self-care (01) | DRG 885 ==
LOC: 1ANU 11:35 → EMEROOARM 11:35 → 1ANU 16:44
PROVIDERS: ADMIT Psychiatry & Neurology Psychiatry; ATTEND Psychiatry & Neurology Psychiatry

== ENCOUNTER 2018-05-15 18:51 | Observation (INO) ==
--- NOTE | 2018-05-15 19:52 | Emergency Department Note ---
Disposition Referrals: Ariel Pantoja MD [Primary Care Provider] - General Adult HPI - General Chief complaint: ED Recheck/Abnormal Lab/Rx Stated complaint: Back an ankle pain Time Seen by Provider: 05/15/18 19:16 Nursing Notes Reviewed: Yes Vital Signs Reviewed: Yes - History of Present Illness Pain Scale: 5 - Related Data Home Medications Medication Instructions Recorded Confirmed Pregabalin [Lyrica] 50 mg PO BID 04/14/18 04/14/18 Previous Rx's Medication Instructions Recorded cephALEXin [Keflex] 500 mg PO QID 5 Days capsule 05/06/18 Allergies Allergy/AdvReac Type Severity Reaction Status Date / Time Sulfa (Sulfonamide Allergy Hives Verified 05/15/18 19:13 Antibiotics) calamine AdvReac Rash Verified 05/15/18 19:13 diphenhydramine AdvReac Anxiety Verified 05/15/18 19:13 [From Benadryl] Past Medical History - Past Medical History Medical history: Reports: arthritis Surgical history: Reports: non-contributory, other Psychiatric history: Reports: bipolar, depression, prior suicide attempt, previous psychiatric hospitalization - Social History Smoking Status: Current every day smoker Smokeless Tobacco Status: No Alcohol use: Reports: rarely Drug use: Reports: none Course Vital Signs Temperature 98.5 F 05/15/18 19:12 Pulse Rate 76 05/15/18 19:12 Respiratory Rate 18 05/15/18 19:12 Blood Pressure 132/86 05/15/18 19:12 O2 Sat by Pulse Oximetry 97 05/15/18 19:12 Temperature 98.5 F 05/15/18 19:12 Pulse Rate 76 05/15/18 19:12 Respiratory Rate 18 05/15/18 19:12 Blood Pressure 132/86 05/15/18 19:12 O2 Sat by Pulse Oximetry 97 05/15/18 19:12 Oxygen Delivery Oxygen Delivery Room Air
--- NOTE | 2018-05-15 20:00 | Emergency Department Note ---
Disposition Clinical Impression: Suicidal ideation, Anxiety Bipolar disorder current episode depressed Qualifiers: Current episode severity: mild Qualified Code(s): F31.31 - Bipolar disorder, current episode depressed, mild Disposition: Admitted As Inpatient Condition: Good Referrals: Ariel Pantoja MD [Primary Care Provider] - Forms: ED Satisfaction Letter Time of Disposition: 00:08 Psych HPI - General Chief Complaint: ED Recheck/Abnormal Lab/Rx Stated Complaint: Back an ankle pain Time Seen by Provider: 05/15/18 19:16 Nursing Notes Reviewed: Yes Vital Signs Reviewed: Yes - History of Present Illness HPI Narrative: 47 male complains of left ankle pain, and worsening of his back pain. He mentions he seen in this department earlier in the month, he did have a follow- up with orthopedic provider, but he mentions the pain is not any better. He denies any injury. Does mention that he has seen Dr. Bradley is well for the past for his back pain. He feels that his left ankle pain has been worsening since he has been utilizing a period. He does describe a history of bipolar, depression, that has been worsening, as well as admission for this recently, and describes no outpatient follow-up. Does mention significant life stressors. Denies any drug use other than marijuana, hallucinations, homicidal ideation. - Related Data Home Medications Medication Instructions Recorded Confirmed Pregabalin [Lyrica] 50 mg PO BID 04/14/18 04/14/18 Previous Rx's Medication Instructions Recorded cephALEXin [Keflex] 500 mg PO QID 5 Days capsule 05/06/18 Allergies Allergy/AdvReac Type Severity Reaction Status Date / Time Sulfa (Sulfonamide Allergy Hives Verified 05/15/18 19:13 Antibiotics) calamine AdvReac Rash Verified 05/15/18 19:13 diphenhydramine AdvReac Anxiety Verified 05/15/18 19:13 [From Benadryl] All systems ED: reviewed and negative except as stated. Review of Systems: As Per HPI Constitutional: Denies: fever, chills, weakness Eyes: Denies: eye pain ENT ED: Denies: ear pain Cardiovascular: Denies: chest pain Respiratory: Denies: dyspnea Gastrointestinal: Denies: abdominal pain, nausea, vomiting Musculoskeletal: Reports: as per HPI. Denies: neck pain Integumentary: Denies: rash Neurological: Denies: headache Psychiatric: Reports: anxiety, depression, suicidal thoughts. Denies: auditory hallucinations, visual hallucinations Endocrine: Denies: fatigue Hematological/Lymphatic: Denies: easy bleeding Allergic/Immunologic: Denies: facial swelling Past Medical History - Past Medical History Medical history: Reports: arthritis Surgical history: Reports: non-contributory, other Psychiatric history: Reports: bipolar, depression, prior suicide attempt, previous psychiatric hospitalization - Social History Smoking Status: Current every day smoker Smokeless Tobacco Status: No Alcohol use: Reports: rarely Drug use: Reports: none Physical Exam - General Limitations: no limitations General appearance: alert, in no apparent distress - Head Head exam: normocephalic - Eye Eye exam: Present: EOMI - ENT ENT exam: mucous membranes moist - Neck Neck exam: Present: full ROM - Chest Chest inspection: Present: symmetric chest wall rise - Respiratory Respiratory exam: Present: normal lung sounds bilaterally. Absent: respiratory distress - Cardiovascular Cardiovascular exam: Present: regular rate, normal rhythm - Extremities Exam Extremities exam: Present: normal capillary refill - Expanded Lower Extremity Exam Hip/Pelvis exam: Present: full ROM Upper leg exam: Present: full ROM Knee exam: Present: normal inspection, full ROM. Absent: tenderness Lower leg exam: Present: normal inspection, full ROM. Absent: tenderness Ankle exam: Present: tenderness (left), abrasion (left ankle medial mal). Absent: erythema Foot/toe exam: Present: full ROM, tenderness (left), deformity (chronic club feet deformity) Neurovascular/Tendon exam: Present: normal capillary refill. Absent: pulse deficit, motor deficit, sensory deficit, tendon deficit - Back Exam Back exam: Present: full ROM, tenderness - Neurological Exam Neurological exam: Present: alert - Psychiatric Psychiatric exam: Present: normal affect, depressed, suicidal ideation - Skin Skin exam: Present: warm, dry, intact, normal color. Absent: rash, diaphoresis Course Course Narrative: 47-year-old male arrives by private vehicle with complaint of worsening of his chronic mid thoracic back pain and left ankle pain. Had seen this patient approximately 9 days ago and emergency department when he had complained of like ankle pain. Patient does have a history of clubfeet, however at that time he had described a twisting of his left ankle had worsened pain, as well as a blister over his left medial malleolus. At that time patient was discharged home with family prescription of antibiotics recommendations to follow-up with orthopedics. Patient states that he had followed up with Dr. [facility], who had evaluated his left ankle. Patient had been utilizing which helps, but he says it has been making it difficult for him to walk. He mentions he has been unable to schedule a follow-up for his left ankle pain. He denies any reinjury or any recent illness. On examination of his left ankle , the blister on his left medial mouse she appears to be improved from his last visit. There is no erythema or concerning for infectious cause. I do feel his left ankle pain is likely related to arthritis and can be treated symptomatically. Patient also has a history of a nerve stimulator, and has had midthoracic back and and sacrum n in the past He mentions that this is also worsening. I feel this is likely related to him utilizing a boot. He is alert and oriented, his vitals within normal limits. Normal distal pulses No focal neurological deficits. No saddle anesthesia. No abdominal pain. No fevers or chills. No bowel or bladder symptoms. Patient denies any history of IV drug use, immune compromised state. I see no concerning signs for cauda equina, or infectious cause of his back pain. I feel that this can be treated symptomatically with recommendations to follow-up with his care provider or with pain management. After discussing patient's visit for his back pain and left ankle, as well as his previous visit 10 days ago for left ankle pain, I did have a short discussion with him. Patient does have a history of bipolar disorder, as well as suicidal ideation, and anxiety. He does admit to currently being suicidal at this time. Patient reportedly had a admission for this one month ago and was discharged home. Patient states that he has been unable to have any follow- up since that time, and does describe that his mood has been worsening. Additionally he does mention significant life stressors in addition to his worsening pain, he mentions he has had vaginosis week, specifically mentioning any unexpected of someone close to him. He does mention that these thoughts have been persisting for some time and not just this week. He does mention he has a plan to overdose on aspirin. He denies any homicidal ideation , auditory or visual hallucinations. He denies any ETOH or drug use other than marijuana At this time patient is in fast track bed. I see no evidence to warrant radiographic imaging. Discussed with charge nurse, patient will be moved to medical bed. I have ordered a workup. We will attempt to clear him for psychiatric evaluation and if so will consult 1a. I will give him a medication to help with his ankle pain. Vital Signs Temperature 98.5 F 05/15/18 19:12 Pulse Rate 76 05/15/18 19:12 Respiratory Rate 18 05/15/18 19:12 Blood Pressure 132/86 05/15/18 19:12 O2 Sat by Pulse Oximetry 97 05/15/18 19:12 Temperature 98.5 F 05/15/18 19:41 Pulse Rate 76 05/15/18 19:41 Respiratory Rate 18 05/15/18 19:41 Blood Pressure 132/86 05/15/18 19:41 O2 Sat by Pulse Oximetry 97 05/15/18 19:41 Oxygen Delivery Oxygen Delivery Room Air Psych - MDM Narrative Medical decision making narrative: Patient was medically cleared, and evaluated by behavioral health staff. I did discuss patient with 1A nurse, Tunde, who did discuss patient with on-call psychiatrist Dr. Diallo. Patient will be admitted for inpatient evaluation and disposition. - Lab Data Result diagrams: 05/15/18 19:50 05/15/18 19:50 Lab Results 05/15/18 05/15/18 05/15/18 Range/Units 19:45 19:45 19:50 WBC 10.1 (4.3-11.1) K/mcL RBC 5.18 (4.19-5.50) M/mcL Hgb 16.0 (12.9-16.9) g/dL Hct 47.6 (37.5-50.1) % MCV 91.9 (83.0-100.0) fL MCH 30.9 (28.0-33.3) pg MCHC 33.6 (31.6-35.5) g/dL RDW 12.1 (11.5-14.5) % Plt Count 238 (140-400) K/mcL MPV 10.7 (9.4-12.4) fL Immature Gran % 0.6 (0-4) % Seg Neutrophils % 56.7 % Lymphocytes % 33.3 % Monocytes % 7.3 % Eosinophils % 1.2 % Basophils % 0.9 % Neutrophils # 5.7 (1.6-8.9) K/mcL Lymphocytes # 3.4 (0.6-4.6) K/mcL Monocytes # 0.7 (0.0-1.3) K/mcL Eosinophils # 0.1 (0.0-0.6) K/mcL Basophils # 0.1 (0.0-0.2) K/mcL Sodium (136-145) mEq/L Potassium (3.5-5.1) mEq/L Chloride (98-107) mEq/L Carbon Dioxide (23-29) mEq/L BUN (6-20) mg/dL Creatinine (0.70-1.30) mg/dL Est GFR ( Amer) (> 60) Est GFR (Non-Af Amer) (> 60) BUN/Creatinine Ratio (6-26) Glucose (70-105) mg/dL Calculated Osmolality (280-300) Calcium (8.6-10.3) mg/dL Urine Color Yellow (Yellow) Urine Clarity Clear (Clear) Urine pH 6.0 (5.0-8.0) pH Units Ur Specific [place] 1.010 (1.010-1.025) Urine Protein Negative (Neg-Trace) mg/dL Urine Glucose (UA) Normal (Normal) mg/dL Urine Ketones Negative (Negative) mg/dL Urine Blood Negative (Negative) Urine Nitrite Negative (Negative) Urine Bilirubin Negative (Negative) Urine Urobilinogen Normal (Normal) mg/dL Ur Leukocyte Esterase Negative (Negative) Salicylates (15.0-30.0) mg/dL Urine Opiates Screen Negative (Wtqjaf=941) ng/mL Acetaminophen (10-20) mcg/mL Ur Barbiturates Screen Negative (Zisiaa=748) ng/mL Ur Phencyclidine Scrn Negative (Cutoff=25) ng/mL Ur Amphetamines Screen Negative (Iugfew=4703) ng/mL U Benzodiazepines Scrn Negative (Ukyfhj=967) ng/mL Urine Cocaine Screen Negative (Cutoff= 300) ng/mL U Marijuana (THC) Screen Positive H (Cutoff = 50) ng/mL Ur Drug Screen Interp See Below Ethyl Alcohol (Less than 10) mg/dL 05/15/18 Range/Units 19:50 WBC (4.3-11.1) K/mcL RBC (4.19-5.50) M/mcL Hgb (12.9-16.9) g/dL Hct (37.5-50.1) % MCV (83.0-100.0) fL MCH (28.0-33.3) pg MCHC (31.6-35.5) g/dL RDW (11.5-14.5) % Plt Count (140-400) K/mcL MPV (9.4-12.4) fL Immature Gran % (0-4) % Seg Neutrophils % % Lymphocytes % % Monocytes % % Eosinophils % % Basophils % % Neutrophils # (1.6-8.9) K/mcL Lymphocytes # (0.6-4.6) K/mcL Monocytes # (0.0-1.3) K/mcL Eosinophils # (0.0-0.6) K/mcL Basophils # (0.0-0.2) K/mcL Sodium 138 (136-145) mEq/L Potassium 3.6 (3.5-5.1) mEq/L Chloride 105 (98-107) mEq/L Carbon Dioxide 29 (23-29) mEq/L BUN 4 L (6-20) mg/dL Creatinine 0.82 (0.70-1.30) mg/dL Est GFR ( Amer) > 60 (> 60) Est GFR (Non-Af Amer) > 60 (> 60) BUN/Creatinine Ratio 5 L (6-26) Glucose 82 (70-105) mg/dL Calculated Osmolality 282 (280-300) Calcium 9.6 (8.6-10.3) mg/dL Urine Color (Yellow) Urine Clarity (Clear) Urine pH (5.0-8.0) pH Units Ur Specific [place] (1.010-1.025) Urine Protein (Neg-Trace) mg/dL Urine Glucose (UA) (Normal) mg/dL Urine Ketones (Negative) mg/dL Urine Blood (Negative) Urine Nitrite (Negative) Urine Bilirubin (Negative) Urine Urobilinogen (Normal) mg/dL Ur Leukocyte Esterase (Negative) Salicylates < 2.5 L (15.0-30.0) mg/dL Urine Opiates Screen (Kpicgu=161) ng/mL Acetaminophen < 10 L (10-20) mcg/mL Ur Barbiturates Screen (Uefryl=331) ng/mL Ur Phencyclidine Scrn (Cutoff=25) ng/mL Ur Amphetamines Screen (Rqfhmy=4976) ng/mL U Benzodiazepines Scrn (Tlmxae=693) ng/mL Urine Cocaine Screen (Cutoff= 300) ng/mL U Marijuana (THC) Screen (Cutoff = 50) ng/mL Ur Drug Screen Interp Ethyl Alcohol < 10 (Less than 10) mg/dL Psychiatric Medical Clearance - Medical Clearance Checklist Does the patient have a NEW psychiatric condition?: No Any abnormalities indicating possible medical illness?: No Any history of medical issues?: Yes (h/o chronic pain) Medical History: No Social History Section defined Any abnormal vital signs prior to transfer?: No Current Vitals: Last Vital Signs Temp 98.5 F 05/15/18 19:41 Pulse 76 05/15/18 19:41 Resp 18 05/15/18 19:41 BP 132/86 05/15/18 19:41 Pulse Ox 97 05/15/18 19:41 Is the patient intoxicated or cognitively impaired?: No Psychiatric Lab Panel: Drug Levels and Toxicity 05/15/18 05/15/18 19:45 19:50 Urine Opiates Screen Negative Acetaminophen < 10 L Ur Barbiturates Screen Negative Ur Phencyclidine Scrn Negative Ur Amphetamines Screen Negative U Benzodiazepines Scrn Negative Urine Cocaine Screen Negative U Marijuana (THC) Screen Positive H Ethyl Alcohol < 10 Any abnormalities on the physical exam?: No Any abnormal labs?: No Abnormal Labs: Abnormal lab results BUN 4 mg/dL (6-20) L 05/15/18 19:50 BUN/Creatinine Ratio 5 (6-26) L 05/15/18 19:50 Salicylates < 2.5 mg/dL (15.0-30.0) L 05/15/18 19:50 Acetaminophen < 10 mcg/mL (10-20) L 05/15/18 19:50 U Marijuana (THC) Screen Positive ng/mL (Cutoff = 50) H 05/15/18 19:45 Does the patient require durable medical equiptment?: No Is the patient ambulatory?: Yes Is the patient a fall risk?: No Has the patient been medically cleared?: Yes Any acute medical condition require Tx prior to transfer?: No Attestation Statement - Attestation Attestation: I examined this patient and my medical decision-making was reviewed with the Resident Physician. I agree with the documented findings, disposition and treatment plan as described except to the extent set forth below. Patient has suicidal ideations with plan to take aspirin as an overdose mechanism. Patient will be admitted for further management by psychiatric services.
[2018-05-15 20:15] LABS: Basophils # 0.1 K/mcL (0.0-0.2); Basophils % 0.9 %; Eosinophils # 0.1 K/mcL (0.0-0.6); Eosinophils % 1.2 %; Hematocrit 47.6 % (37.5-50.1); Immature Granulocytes % 0.6 % (0-4); Lymphocytes # 3.4 K/mcL (0.6-4.6); Lymphocytes % 33.3 %; Mean Corpuscular HGB Conc 33.6 g/dL (31.6-35.5); Mean Corpuscular Hemoglobin 30.9 pg (28.0-33.3); Mean Corpuscular Volume 91.9 fL (83.0-100.0); Mean Platelet Volume 10.7 fL (9.4-12.4); Monocytes # 0.7 K/mcL (0.0-1.3); Monocytes % 7.3 %; Neutrophils # 5.7 K/mcL (1.6-8.9); Platelet Count 238 K/mcL (140-400); Red Blood Count 5.18 M/mcL (4.19-5.50); Red Cell Distribution Width 12.1 % (11.5-14.5); Segmented Neutrophils % 56.7 %
[2018-05-15 20:19] LABS: Bilirubin,Urine Negative (Negative); Blood,Urine Negative (Negative); Clarity,Urine Clear (Clear); Color,Urine Yellow (Yellow); Glucose,Urine (UA) Normal (Normal); Ketones,Urine Negative (Negative); Leukocyte Esterase,Urine Negative (Negative); Nitrite,Urine Negative (Negative); Protein,Urine Negative (Neg-Trace); Urobilinogen,Urine Normal (Normal)
[2018-05-15] MEDS ORDERED: Ibuprofen 600 MG TABLET PO ONE (20:25)
[2018-05-15 20:31] LABS: Amphetamine Screen,Urine Negative ng/mL (Cutoff=1000); Barbiturate Screen,Urine Negative ng/mL (Cutoff=200); Benzodiazepines Screen,Urine Negative ng/mL (Cutoff=200); Cannabinoid Screen,Urine Positive ng/mL (Cutoff = 50); Cocaine Screen,Urine Negative ng/mL (Cutoff= 300); Opiate Screen,Urine Negative ng/mL (Cutoff=300); Phencyclidine Screen,Urine Negative ng/mL (Cutoff=25)
[2018-05-15 20:38] LABS: Acetaminophen < 10 mcg/mL (10-20); BUN/Creatinine Ratio 5 (6-26); Blood Urea Nitrogen 4 mg/dL (6-20); Calcium 9.6 mg/dL (8.6-10.3); Carbon Dioxide 29 mEq/L (23-29); Chloride 105 mEq/L (98-107); Ethanol < 10 mg/dL (Less than 10); Glucose 82 mg/dL (70-105); Osmolality,Calculated 282 (280-300); Potassium 3.6 mEq/L (3.5-5.1); Salicylate < 2.5 mg/dL (15.0-30.0); Sodium 138 mEq/L (136-145); eGFR For Non-African Americans > 60 (> 60)
[2018-05-16] MEDS ORDERED: Acetaminophen 325 MG TABLET PO PRN (00:20)
[2018-05-16] MEDS ORDERED: *HR* LORazepam 2 MG/ML VIAL IM PRN (00:20)
[2018-05-16] MEDS ORDERED: Mag Hydrox/Al Hydrox/Simeth 30 ML UDC PO PRN (00:20)
[2018-05-16] MEDS ORDERED: Haloperidol Lactate 5 MG/ML VIAL IM PRN (00:20)
[2018-05-16] MEDS ORDERED: *HR* LORazepam 1 MG TABLET PO PRN (00:20)
[2018-05-16] MEDS ORDERED: MOM Conc 10 ML UD.LIQ PO PRN (00:20)
[2018-05-16] MEDS: Nicotine 21 MG PATCH.TD24 TD SCH (09:23)
--- NOTE | 2018-05-16 14:01 | Psychiatry History & Physical ---
Date of Encounter: 05/16/18 Time of Encounter: 13:58 History of Present Illness Patient Stated Chief Complaint: Suicidal ideation Medicare Admission Attestation: For traditional Medicare patients the provided hospital inpatient services are reasonable and necessary and in the case of services not specified as inpatient -only under 42 CFR 419.22 (n), that they are appropriately provided as inpatient services in accordance 42 CFR 412.3. For Critical Access Hospital the patient may reasonably be expected to be discharged or transferred to a hospital within 96 hours after admission to the Critical Access Hospital. Admitted From: Emergency Dept History of Present Illness: Mr. Parekh is a 47 year old male admitted from the emergency department for suicidal ideation. Patient was recently discharged from this units was diagnosis of bipolar disorder depressed patient did not follow up as planned and did not continue to take his medication he currently is stressed out by being homeless and focus on this issue when asked about suicidal ideation he answer in a vague and evasive away by saying I do not know. UDS was positive for THC. Past Med Surg Social Fam HX - Past Medical History Medical history: arthritis - Past Psychiatric History Psychiatric history: Reports: previous psychiatric hospitalization Past psychiatric history details: Recent hospitalization March 2018 - Past Surgical History Surgical History: non-contributory, other - Social History Smoking Status: Current every day smoker Smokeless Tobacco Status: No Alcohol use: rarely Drug use: none - Family History Mother Adopted: [place]: Grisel Parekh Family Member Ethnicity: Non- Living Status: Age at : 62 Cause of : COPD CHF Hx Family Cardiac Disorders: Yes (CHF) Hx Family Respiratory Disorders: Yes (COPD) Hx Family Cancer: No Hx Family GI Disorders: Yes (unknown) Hx Family Genitourinary Disorders: No Hx Family Endocrine Disorder: Yes (Type 1 DM) Hx Family Musculoskeletal Disorders: No Hx Family Neuromuscular Disorders: No Hx Family Neurologic Disorders: No Hx Family HEENT Disorders: No Hx Family Autoimmune Disorders: No Hx Family Reproductive Disorders: No Hx Family Psychosocial Disorders: No Hx Family Medical Disorders: No Medications & Allergies Pregabalin [Lyrica] 50 mg PO BID 04/14/18 [History] cephALEXin [Keflex] 500 mg PO QID 5 Days capsule 05/06/18 [Rx] 3 Allergy/AdvReac Type Severity Reaction Status Date / Time Sulfa (Sulfonamide Allergy Hives Verified 05/15/18 19:13 Antibiotics) calamine AdvReac Rash Verified 05/15/18 19:13 diphenhydramine AdvReac Anxiety Verified 05/15/18 19:13 [From Benadryl] Review of Systems Psychiatric: Reports: suicidal ideation Exam - HEENT Head exam IM: Present: atraumatic Eye exam IM: Present: EOMI, normal appearance, PERRL ENT exam IM: Present: normal exam - Neurological Neurological exam: Present: CN II-XII intact - Respiratory Respiratory exam IM: Present: CTAB - GI/Abdominal GI/Abdominal exam IM: Present: normal bowel sounds, soft. Absent: tenderness - Extremities Extremities exam IM: Present: full ROM - Skin Skin exam IM: Present: dry, warm - Constitutional Vitals: Temp Pulse Resp BP Pulse Ox 98.1 F 114 16 124/79 97 05/16/18 09:00 05/16/18 09:00 05/16/18 09:00 05/16/18 09:00 05/15/18 19:41 General appearance: age & developmentally appropriate, well-groomed, well- nourished - Musculoskeletal Gait: normal Station: relaxed Strength & Tone: normal for patient - Psychiatric Patient Orientation: Yes Person, Yes Time, Yes Place Level of alertness: Alert Behavior: calm, uncooperative, dramatic Psychomotor activity: Normal Eye Contact: Maintains Eye Contact Mood Description: Euthymic/stable, Labile, Irritable Affect description: congruent with mood, labile, dysphoric Speech Volume: Normal Speech pattern: normal rate, normal rhythm, normal tone, fluent, spontaneous Language & Vocabulary: consistent with education Thought Process: Linear, Goal Oriented Thought Content: Yes Suicidal ideation, No Homicidal ideation, No Overt delusions Perceptual Disturbances: No Auditory hallucinations, No Visual hallucinations Attention Span Ability: Capable of Focused Attention Memory Description: Grossly Intact Patient Reliability: Reliable Historian Fund of knowledge: Yes abstraction ability, Yes average, Yes aware of current events Intelligence Estimate: Average Judgment: Limited Insight: Partial Results - Labs Labs: Laboratory Last Values WBC 10.1 K/mcL (4.3-11.1) 05/15/18 19:50 RBC 5.18 M/mcL (4.19-5.50) 05/15/18 19:50 Hgb 16.0 g/dL (12.9-16.9) 05/15/18 19:50 Hct 47.6 % (37.5-50.1) 05/15/18 19:50 MCV 91.9 fL (83.0-100.0) 05/15/18 19:50 MCH 30.9 pg (28.0-33.3) 05/15/18 19:50 MCHC 33.6 g/dL (31.6-35.5) 05/15/18 19:50 RDW 12.1 % (11.5-14.5) 05/15/18 19:50 Plt Count 238 K/mcL (140-400) 05/15/18 19:50 MPV 10.7 fL (9.4-12.4) 05/15/18 19:50 Immature Gran % 0.6 % (0-4) 05/15/18 19:50 Seg Neutrophils % 56.7 % 05/15/18 19:50 Lymphocytes % 33.3 % 05/15/18 19:50 Monocytes % 7.3 % 05/15/18 19:50 Eosinophils % 1.2 % 05/15/18 19:50 Basophils % 0.9 % 05/15/18 19:50 Neutrophils # 5.7 K/mcL (1.6-8.9) 05/15/18 19:50 Lymphocytes # 3.4 K/mcL (0.6-4.6) 05/15/18 19:50 Monocytes # 0.7 K/mcL (0.0-1.3) 05/15/18 19:50 Eosinophils # 0.1 K/mcL (0.0-0.6) 05/15/18 19:50 Basophils # 0.1 K/mcL (0.0-0.2) 05/15/18 19:50 Sodium 138 mEq/L (136-145) 05/15/18 19:50 Potassium 3.6 mEq/L (3.5-5.1) 05/15/18 19:50 Chloride 105 mEq/L (98-107) 05/15/18 19:50 Carbon Dioxide 29 mEq/L (23-29) 05/15/18 19:50 BUN 4 mg/dL (6-20) L 05/15/18 19:50 Creatinine 0.82 mg/dL (0.70-1.30) 05/15/18 19:50 Est GFR ( Amer) > 60 (> 60) 05/15/18 19:50 Est GFR (Non-Af Amer) > 60 (> 60) 05/15/18 19:50 BUN/Creatinine Ratio 5 (6-26) L 05/15/18 19:50 Glucose 82 mg/dL (70-105) 05/15/18 19:50 Calculated Osmolality 282 (280-300) 05/15/18 19:50 Calcium 9.6 mg/dL (8.6-10.3) 05/15/18 19:50 Urine Color Yellow (Yellow) 05/15/18 19:45 Urine Clarity Clear (Clear) 05/15/18 19:45 Urine pH 6.0 pH Units (5.0-8.0) 05/15/18 19:45 Ur Specific [place] 1.010 (1.010-1.025) 05/15/18 19:45 Urine Protein Negative mg/dL (Neg-Trace) 05/15/18 19:45 Urine Glucose (UA) Normal mg/dL (Normal) 05/15/18 19:45 Urine Ketones Negative mg/dL (Negative) 05/15/18 19:45 Urine Blood Negative (Negative) 05/15/18 19:45 Urine Nitrite Negative (Negative) 05/15/18 19:45 Urine Bilirubin Negative (Negative) 05/15/18 19:45 Urine Urobilinogen Normal mg/dL (Normal) 05/15/18 19:45 Ur Leukocyte Esterase Negative (Negative) 05/15/18 19:45 Salicylates < 2.5 mg/dL (15.0-30.0) L 05/15/18 19:50 Urine Opiates Screen Negative ng/mL (Usjjgk=739) 05/15/18 19:45 Acetaminophen < 10 mcg/mL (10-20) L 05/15/18 19:50 Ur Barbiturates Screen Negative ng/mL (Akbwyn=133) 05/15/18 19:45 Ur Phencyclidine Scrn Negative ng/mL (Cutoff=25) 05/15/18 19:45 Ur Amphetamines Screen Negative ng/mL (Mrzgze=0098) 05/15/18 19:45 U Benzodiazepines Scrn Negative ng/mL (Ertjyi=546) 05/15/18 19:45 Urine Cocaine Screen Negative ng/mL (Cutoff= 300) 05/15/18 19:45 U Marijuana (THC) Screen Positive ng/mL (Cutoff = 50) H 05/15/18 19:45 Ur Drug Screen Interp See Below 05/15/18 19:45 Ethyl Alcohol < 10 mg/dL (Less than 10) 05/15/18 19:50 Assessment and Plan (1) Bipolar disorder current episode depressed Current visit: Yes Status: Acute Plan: Admit inpatient for safety and stabilization, Close observation, Suicide Precautions per unit protocol, Encourage participation in unit milieu, Group Therapy, Monitor sleep, Monitor appetite Qualifiers: Current episode severity: mild Qualified Code(s): F31.31 - Bipolar disorder , current episode depressed, mild (2) Mild tetrahydrocannabinol (THC) abuse Current visit: Yes Status: Acute Plan: Admit inpatient for safety and stabilization, Close observation, Suicide Precautions per unit protocol, Encourage participation in unit milieu, Group Therapy, Monitor sleep, Monitor appetite
[2018-05-16] MEDS: hydrOXYzine pamoate 25 MG CAPSULE PO PRN (20:56)
[2018-05-16] MEDS: traZODone 50 MG TABLET PO PRN (20:56)
[2018-05-17] MEDS: Nicotine 21 MG PATCH.TD24 TD SCH (10:34)
--- NOTE | 2018-05-17 14:48 | Psychiatry Progress Note ---
Date of Encounter: 05/17/18 Time of Encounter: 14:42 Subjective Interval history: Patient seen for follow-up. Case discussed with treatment team. He is focused on housing issues and been homeless. well service derrick worker is trying to help him find a temporary housing placement. Regarding medication patient is refusing to take any medication and he believe they do not help he on he wants to take Naprosyn for muscular musculoskeletal pain. Review of Systems Psychiatric: Reports: suicidal ideation Results - Vital Signs Vital Signs: Temp Pulse Resp BP Pulse Ox 99 F 74 16 133/85 97 05/17/18 09:00 05/17/18 09:00 05/17/18 09:00 05/17/18 09:00 05/15/18 19:41 Assessment and Plan (1) Bipolar disorder current episode depressed Current visit: Yes Status: Acute Plan: Continue hospitalization, Close observation, Suicide Precautions per unit protocol, Encourage participation in unit milieu, Group Therapy, Monitor sleep, Monitor appetite Qualifiers: Current episode severity: mild Qualified Code(s): F31.31 - Bipolar disorder , current episode depressed, mild (2) Mild tetrahydrocannabinol (THC) abuse Current visit: Yes Status: Acute Plan: Continue hospitalization, Close observation, Suicide Precautions per unit protocol, Encourage participation in unit milieu, Group Therapy, Monitor sleep, Monitor appetite Consult Discharge Plan - Plan Referrals: [facility] [Outside] (The above appointment is with for outpatient psychiatric assessment and medication management services. Please arrive 30 minutes early for first time psychiatry appointments, and 15 minutes early for follow-up psychiatry appointments. Please bring your photo ID (bring proof of address if you do not have an ID), insurance card and medication list. IF YOU DO NOT BRING YOUR INSURANCE CARD YOU CANNOT BE SEEN. The above appointment(s) reflects first availability. You may contact the office regularly to check for cancellations that may allow you to be seen sooner. Additionally, the new machine adjuster leader case trim assigned to you will contact you directly to schedule your intake appointment for case management and mental health counseling services. ) Psychiatry Exam - Constitutional Vitals: Temp Pulse Resp BP Pulse Ox 99 F 74 16 133/85 97 05/17/18 09:00 05/17/18 09:00 05/17/18 09:00 05/17/18 09:00 05/15/18 19:41 General appearance: age & developmentally appropriate, well-groomed, well- nourished, average - Musculoskeletal Gait: normal Station: relaxed Strength & Tone: normal for patient - Psychiatric Patient Orientation: Yes Person, Yes Time, Yes Place Level of alertness: Alert Behavior: calm, cooperative, guarded Psychomotor activity: Normal Eye Contact: Minimal Contact Mood Description: Euthymic/stable Affect description: congruent with mood, full range Speech Volume: Normal Speech pattern: normal rate, normal rhythm, normal tone, fluent, spontaneous Language & Vocabulary: consistent with education Thought Process: Linear, Goal Oriented Thought Content: No Suicidal ideation, No Homicidal ideation, No Overt delusions Perceptual Disturbances: No Auditory hallucinations, No Visual hallucinations Attention Span Ability: Capable of Focused Attention Memory Description: Grossly Intact Patient Reliability: Reliable Historian Fund of knowledge: Yes abstraction ability, Yes aware of current events Intelligence Estimate: Average Judgment: Limited Insight: Partial
[2018-05-17] MEDS: hydrOXYzine pamoate 25 MG CAPSULE PO PRN (20:18)
[2018-05-17] MEDS: traZODone 50 MG TABLET PO PRN (20:19)
--- NOTE | 2018-05-18 09:25 | Psychiatry Progress Note ---
Date of Encounter: 05/18/18 Time of Encounter: 09:21 Subjective Interval history: Client endorses ongoing depression but denies ongoing SI. Not currently on any psych meds. States he would like to take something for depression but reports he has tried most antidepressants at some point in his life without success. This check writer started listing antidepressants and the only one he had not tried before was Remeron. Willing to give it a shot. States the only thing that has benefitted him in the past is "psychedelic mushrooms." Claims he used to suffer from cluster headaches and that hallucinogens are the only thing that helped. Denies any recent headaches or drug use beyond THC. Has plans to go to [facility] for respite care after discharge. Interviewed yesterday. Bed should be available Sunday or Sunday. Review of Systems Constitutional: Denies: fever, chills, weakness, weight change Eyes: Denies: eye pain, vision change Ears, Nose, Throat: Denies: ear pain, throat pain, dental pain, hearing loss, congestion Cardiovascular: Denies: chest pain, palpitations, dyspnea on exertion Respiratory: Denies: cough, dyspnea, wheezes Gastrointestinal: Denies: abdominal pain, nausea, vomiting, diarrhea, constipation Musculoskeletal: Denies: joint swelling, joint pain Neurological: Denies: headache, weakness, numbness, memory loss Psychiatric: Reports: suicidal ideation Results - Vital Signs Vital Signs: Temp Pulse Resp BP Pulse Ox 98.2 F 67 16 125/83 97 05/17/18 21:00 05/17/18 21:00 05/17/18 21:00 05/17/18 21:00 05/15/18 19:41 Assessment and Plan (1) Bipolar disorder current episode depressed Current visit: Yes Status: Acute Plan: Continue hospitalization, Close observation, Suicide Precautions per unit protocol, Encourage participation in unit milieu, Group Therapy, Monitor sleep, Monitor appetite Risks, benefits, side effects, alternatives discussed w/pt: Yes Patient agreeable to treatment: Yes Qualifiers: Current episode severity: mild Qualified Code(s): F31.31 - Bipolar disorder , current episode depressed, mild Consult Discharge Plan - Plan Referrals: [facility] [Outside] (You are going into mental health respite at [facility] on discharge from the hospital. While there, clinic staff will open a case for you to become a client, and you will be seen daily by the clinic counselors and top case assembler, both individually and in group. ) [facility] [Outside] (The above appointment is with for outpatient psychiatric assessment and medication management services. Please arrive 30 minutes early for first time psychiatry appointments, and 15 minutes early for follow-up psychiatry appointments. Please bring your photo ID (bring proof of address if you do not have an ID), insurance card and medication list. IF YOU DO NOT BRING YOUR INSURANCE CARD YOU CANNOT BE SEEN. The above appointment(s) reflects first availability. You may contact the office regularly to check for cancellations that may allow you to be seen sooner. Additionally, the new pillowcase folder assigned to you will contact you directly to schedule your intake appointment for case management and mental health counseling services. ) Psychiatry Exam - Constitutional Vitals: Temp Pulse Resp BP Pulse Ox 98.2 F 67 16 125/83 97 05/17/18 21:00 05/17/18 21:00 05/17/18 21:00 05/17/18 21:00 05/15/18 19:41 General appearance: age & developmentally appropriate - Musculoskeletal Gait: normal Station: relaxed Strength & Tone: normal for patient - Psychiatric Patient Orientation: Yes Person, Yes Time, Yes Place Level of alertness: Alert Behavior: calm, cooperative Psychomotor activity: Normal Eye Contact: Maintains Eye Contact Mood Description: Depressed Affect description: congruent with mood Speech Volume: Normal Speech pattern: normal rate, normal rhythm, normal tone, fluent, spontaneous Language & Vocabulary: consistent with education Thought Process: Linear, Goal Oriented Thought Content: No Suicidal ideation, No Homicidal ideation, No Overt delusions Perceptual Disturbances: No Auditory hallucinations, No Visual hallucinations Attention Span Ability: Capable of Focused Attention Memory Description: Grossly Intact Patient Reliability: Reliable Historian Fund of knowledge: Yes abstraction ability, Yes aware of current events Intelligence Estimate: Average Judgment: Limited Insight: Partial
[2018-05-18] MEDS: Nicotine 21 MG PATCH.TD24 TD SCH ×2 (10:03→12:37)
[2018-05-18] MEDS: traZODone 50 MG TABLET PO PRN (19:51)
[2018-05-18] MEDS: Mirtazapine 15 MG TABLET PO SCH (19:51)
[2018-05-18] MEDS: hydrOXYzine pamoate 25 MG CAPSULE PO PRN (19:51)
--- NOTE | 2018-05-19 08:31 | Psychiatry Progress Note ---
Date of Encounter: 05/19/18 Time of Encounter: 08:27 Subjective Interval history: Client took the Remeron last night without issue. Unable to sleep due to back pain but he reports he feels like the Remeron may ultimately be helpful. States he initially went to the ER for back pain but ended up on 1A and that back pain was never addressed. 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 Follows with a pain clinic but has not been seen recently. Will try to get him an appointment prior to discharge. Client unsure if current back pain related to past issues or not but following with pain doctor probably best place to start. Reports mood is pretty good today. Plan remains to discharge to [facility] when bed available this week. Review of Systems Constitutional: Denies: fever, chills, weakness, weight change Eyes: Denies: eye pain, vision change Ears, Nose, Throat: Denies: ear pain, throat pain, dental pain, hearing loss, congestion Cardiovascular: Denies: chest pain, palpitations, dyspnea on exertion Respiratory: Denies: cough, dyspnea, wheezes Gastrointestinal: Denies: abdominal pain, nausea, vomiting, diarrhea, constipation Musculoskeletal: Reports: back pain Neurological: Reports: other Psychiatric: Reports: suicidal ideation Results - Vital Signs Vital Signs: Temp Pulse Resp BP Pulse Ox 97.3 F L 70 18 102/67 97 05/18/18 20:19 05/18/18 20:19 05/18/18 20:19 05/18/18 20:19 05/15/18 19:41 Assessment and Plan (1) Bipolar disorder current episode depressed Current visit: Yes Status: Acute Plan: Continue hospitalization, Close observation, Suicide Precautions per unit protocol, Encourage participation in unit milieu, Group Therapy, Monitor sleep, Monitor appetite Risks, benefits, side effects, alternatives discussed w/pt: Yes Patient agreeable to treatment: Yes Qualifiers: Current episode severity: mild Qualified Code(s): F31.31 - Bipolar disorder , current episode depressed, mild Consult Discharge Plan - Plan Referrals: [facility] [Outside] (You are going into mental health respite at [facility] on discharge from the hospital. While there, clinic staff will open a case for you to become a client, and you will be seen daily by the clinic counselors and case management associate, both individually and in group. ) [facility] [Outside] (The above appointment is with for outpatient psychiatric assessment and medication management services. Please arrive 30 minutes early for first time psychiatry appointments, and 15 minutes early for follow-up psychiatry appointments. Please bring your photo ID (bring proof of address if you do not have an ID), insurance card and medication list. IF YOU DO NOT BRING YOUR INSURANCE CARD YOU CANNOT BE SEEN. The above appointment(s) reflects first availability. You may contact the office regularly to check for cancellations that may allow you to be seen sooner. Additionally, the new case management associate assigned to you will contact you directly to schedule your intake appointment for case management and mental health counseling services. ) Psychiatry Exam - Constitutional Vitals: Temp Pulse Resp BP Pulse Ox 97.3 F L 70 18 102/67 97 05/18/18 20:19 05/18/18 20:19 05/18/18 20:19 05/18/18 20:19 05/15/18 19:41 General appearance: age & developmentally appropriate - Musculoskeletal Gait: slow Station: relaxed Strength & Tone: normal for patient - Psychiatric Patient Orientation: Yes Person, Yes Time, Yes Place Level of alertness: Alert Behavior: calm, cooperative Psychomotor activity: Normal Eye Contact: Maintains Eye Contact Mood Description: Euthymic/stable Affect description: congruent with mood Speech Volume: Normal Speech pattern: normal rate, normal rhythm, normal tone, fluent, spontaneous Language & Vocabulary: consistent with education Thought Process: Linear, Goal Oriented Thought Content: No Suicidal ideation, No Homicidal ideation, No Overt delusions Perceptual Disturbances: No Auditory hallucinations, No Visual hallucinations Attention Span Ability: Capable of Focused Attention Memory Description: Grossly Intact Patient Reliability: Reliable Historian Fund of knowledge: Yes abstraction ability, Yes aware of current events Intelligence Estimate: Average Judgment: Fair Insight: Partial
[2018-05-19] MEDS: Nicotine 21 MG PATCH.TD24 TD SCH (11:40)
[2018-05-19] MEDS: Acetaminophen 325 MG TABLET PO PRN (20:09)
[2018-05-19] MEDS: Mirtazapine 15 MG TABLET PO SCH (21:14)
[2018-05-20] MEDS: Nicotine 21 MG PATCH.TD24 TD SCH (08:52)
--- NOTE | 2018-05-20 13:28 | Psychiatry Progress Note ---
Date of Encounter: 05/20/18 Time of Encounter: 12:58 Subjective Interval history: Patient seen today , chart reviewed and case d/w treatment team. he was admitted for suicidal ideation and depression , he was dx with Bipolar affective disorder and marijuana use and poly substance use, he is c/o back pain and has stimulator but still back pain is not good , he was on suboxone in past for back pain. he is not suicidal/homicidal at present , sleep better except back keeps waking him up. patient needs referal to pain management and will be dc to [place] for rehab. will give prn ibubruffen. Review of Systems Psychiatric: Reports: depression, suicidal ideation Results - Vital Signs Vital Signs: Temp Pulse Resp BP Pulse Ox 98 F 83 18 126/83 97 05/20/18 09:00 05/20/18 09:00 05/20/18 09:00 05/20/18 09:00 05/15/18 19:41 Assessment and Plan (1) Suicidal ideation Current visit: Yes Status: Resolved Plan: Continue hospitalization, Close observation, Suicide Precautions per unit protocol, Encourage participation in unit milieu, Group Therapy, Monitor sleep Risks, benefits, side effects, alternatives discussed w/pt: Yes Patient agreeable to treatment: Yes (2) Bipolar disorder current episode depressed Current visit: Yes Status: Acute Plan: Continue hospitalization, Close observation Risks, benefits, side effects, alternatives discussed w/pt: Yes Patient agreeable to treatment: Yes Qualifiers: Current episode severity: mild Qualified Code(s): F31.31 - Bipolar disorder , current episode depressed, mild (3) Mild tetrahydrocannabinol (THC) abuse Current visit: Yes Status: Acute Plan: Continue hospitalization, Suicide Precautions per unit protocol, Group Therapy Additional Plan: rehab once stable . Consult Discharge Plan - Plan Referrals: [facility] [Outside] (You are going into mental health respite at [facility] on discharge from the hospital. While there, clinic staff will open a case for you to become a client, and you will be seen daily by the clinic counselors and gearcase assembler, both individually and in group. ) [facility] [Outside] (The above appointment is with for outpatient psychiatric assessment and medication management services. Please arrive 30 minutes early for first time psychiatry appointments, and 15 minutes early for follow-up psychiatry appointments. Please bring your photo ID (bring proof of address if you do not have an ID), insurance card and medication list. IF YOU DO NOT BRING YOUR INSURANCE CARD YOU CANNOT BE SEEN. The above appointment(s) reflects first availability. You may contact the office regularly to check for cancellations that may allow you to be seen sooner. Additionally, the new patient case manager assigned to you will contact you directly to schedule your intake appointment for case management and mental health counseling services. ) Psychiatry Exam - Constitutional Vitals: Temp Pulse Resp BP Pulse Ox 98 F 83 18 126/83 97 05/20/18 09:00 05/20/18 09:00 05/20/18 09:00 05/20/18 09:00 05/15/18 19:41 General appearance: age & developmentally appropriate - Musculoskeletal Gait: normal Station: other Strength & Tone: normal for patient - Psychiatric Patient Orientation: Yes Person, Yes Time, Yes Place Level of alertness: Alert Behavior: calm, cooperative Psychomotor activity: Normal Eye Contact: Maintains Eye Contact Mood Description: Other (bored) Affect description: congruent with mood Speech Volume: Normal Speech pattern: normal rate, clear, coherent Language & Vocabulary: consistent with education Thought Process: Intact Thought Content: Yes Intact Attention Span Ability: Capable of Focused Attention Memory Description: Grossly Intact Patient Reliability: Reliable Historian Fund of knowledge: Yes average Intelligence Estimate: Average Judgment: Fair Insight: Partial
[2018-05-20] MEDS: Ibuprofen 600 MG TABLET PO PRN (14:02)
[2018-05-20] MEDS: Acetaminophen 325 MG TABLET PO PRN (20:26)
[2018-05-20] MEDS: traZODone 50 MG TABLET PO PRN (20:27)
[2018-05-20] MEDS: hydrOXYzine pamoate 25 MG CAPSULE PO PRN (20:27)
[2018-05-20] MEDS: Mirtazapine 15 MG TABLET PO SCH (20:27)
[2018-05-21] MEDS: Nicotine 21 MG PATCH.TD24 TD SCH (08:34)
[2018-05-21] MEDS: Acetaminophen 325 MG TABLET PO PRN ×2 (08:35→20:06)
--- NOTE | 2018-05-21 12:59 | Psychiatry Progress Note ---
Date of Encounter: 05/21/18 Time of Encounter: 12:20 Subjective Interval history: Patient seen today , case d/w treatment team and he is awaiting bed at [facility] , he is at present c/o pain in back and increase anxiety as was supposed to leave today but waiting for [facility] for bed. he states hydroxyzine makes him hyper and itchy just like benadryl does , so will dc and start propranolol for anxiety , he has ibubrufen for pain states does not help much . he will be given tramadol prn bid for pain. he agreed and has taken before. Review of Systems Psychiatric: Reports: depression, suicidal ideation Results - Vital Signs Vital Signs: Temp Pulse Resp BP Pulse Ox 98.3 F 64 20 122/84 97 05/21/18 09:00 05/21/18 09:00 05/21/18 09:00 05/21/18 09:00 05/15/18 19:41 Assessment and Plan (1) Suicidal ideation Current visit: Yes Status: Resolved Risks, benefits, side effects, alternatives discussed w/pt: Yes Patient agreeable to treatment: Yes (2) Bipolar disorder current episode depressed Current visit: Yes Status: Acute Risks, benefits, side effects, alternatives discussed w/pt: Yes Patient agreeable to treatment: Yes Qualifiers: Current episode severity: mild Qualified Code(s): F31.31 - Bipolar disorder , current episode depressed, mild (3) Mild tetrahydrocannabinol (THC) abuse Current visit: Yes Status: Acute Consult Discharge Plan - Plan Referrals: [facility] [Outside] (You are going into mental health respite at [facility] on discharge from the hospital. While there, clinic staff will open a case for you to become a client, and you will be seen daily by the clinic counselors and case management manager, both individually and in group. ) [facility] [Outside] (The above appointment is with for outpatient psychiatric assessment and medication management services. Please arrive 30 minutes early for first time psychiatry appointments, and 15 minutes early for follow-up psychiatry appointments. Please bring your photo ID (bring proof of address if you do not have an ID), insurance card and medication list. IF YOU DO NOT BRING YOUR INSURANCE CARD YOU CANNOT BE SEEN. The above appointment(s) reflects first availability. You may contact the office regularly to check for cancellations that may allow you to be seen sooner. Additionally, the new caser assigned to you will contact you directly to schedule your intake appointment for case management and mental health counseling services. ) Psychiatry Exam - Constitutional Vitals: Temp Pulse Resp BP Pulse Ox 98.3 F 64 20 122/84 97 05/21/18 09:00 05/21/18 09:00 05/21/18 09:00 05/21/18 09:00 05/15/18 19:41 General appearance: age & developmentally appropriate - Musculoskeletal Gait: normal Station: other Strength & Tone: normal for patient - Psychiatric Patient Orientation: Yes Person, Yes Time, Yes Place Level of alertness: Alert Behavior: calm, cooperative, anxious Psychomotor activity: Normal Eye Contact: Maintains Eye Contact Mood Description: Anxious Affect description: congruent with mood Speech Volume: Normal Speech pattern: clear, coherent, slowed Language & Vocabulary: consistent with education Thought Process: Intact Thought Content: Yes Intact Perceptual Disturbances: No Auditory hallucinations, No Visual hallucinations Attention Span Ability: Capable of Focused Attention Memory Description: Grossly Intact Patient Reliability: Reliable Historian Fund of knowledge: Yes average Intelligence Estimate: Average Judgment: Fair Insight: Partial
[2018-05-21] MEDS: traMADol 50 MG TABLET PO PRN ×2 (13:32→18:38)
[2018-05-21] MEDS: Ibuprofen 600 MG TABLET PO PRN (15:38)
[2018-05-21] MEDS: traZODone 50 MG TABLET PO PRN (20:08)
[2018-05-21] MEDS: Mirtazapine 15 MG TABLET PO SCH (20:08)
[2018-05-22] MEDS: traMADol 50 MG TABLET PO PRN ×3 (04:04→19:42)
[2018-05-22] MEDS: Nicotine 21 MG PATCH.TD24 TD SCH (08:48)
--- NOTE | 2018-05-22 13:28 | Psychiatry Progress Note ---
Date of Encounter: 05/22/18 Time of Encounter: 13:00 Subjective Interval history: Patient seen today , case d/w treatment team ,he is still c/o pain. he was given tramadol and most pain is at night. he has improved in his moods and anxiety is better. he is ready for discharge to rehab and will be tommorow as bed available. denies side effects. Review of Systems Psychiatric: Reports: depression, suicidal ideation Results - Vital Signs Vital Signs: Temp Pulse Resp BP Pulse Ox 97.6 F 64 18 109/74 97 05/22/18 09:00 05/22/18 09:00 05/22/18 09:00 05/22/18 09:00 05/15/18 19:41 Assessment and Plan (1) Suicidal ideation Current visit: Yes Status: Resolved Risks, benefits, side effects, alternatives discussed w/pt: Yes Patient agreeable to treatment: Yes (2) Bipolar disorder current episode depressed Current visit: Yes Status: Acute Risks, benefits, side effects, alternatives discussed w/pt: Yes Patient agreeable to treatment: Yes Qualifiers: Current episode severity: mild Qualified Code(s): F31.31 - Bipolar disorder , current episode depressed, mild (3) Mild tetrahydrocannabinol (THC) abuse Current visit: Yes Status: Acute Consult Discharge Plan - Plan Referrals: [facility] [Outside] (You are going into mental health respite at [facility] on discharge from the hospital. While there, clinic staff will open a case for you to become a client, and you will be seen daily by the clinic counselors and pillowcase maker, both individually and in group. ) [facility] [Outside] (The above appointment is with for outpatient psychiatric assessment and medication management services. Please arrive 30 minutes early for first time psychiatry appointments, and 15 minutes early for follow-up psychiatry appointments. Please bring your photo ID (bring proof of address if you do not have an ID), insurance card and medication list. IF YOU DO NOT BRING YOUR INSURANCE CARD YOU CANNOT BE SEEN. The above appointment(s) reflects first availability. You may contact the office regularly to check for cancellations that may allow you to be seen sooner. Additionally, the new trimming caser assigned to you will contact you directly to schedule your intake appointment for case management and mental health counseling services. ) Psychiatry Exam - Constitutional Vitals: Temp Pulse Resp BP Pulse Ox 97.6 F 64 18 109/74 97 05/22/18 09:00 05/22/18 09:00 05/22/18 09:00 05/22/18 09:00 05/15/18 19:41 General appearance: average - Musculoskeletal Gait: slow Station: other Strength & Tone: normal for patient - Psychiatric Patient Orientation: Yes Person, Yes Time, Yes Place Level of alertness: Alert Behavior: calm, cooperative Psychomotor activity: Normal Eye Contact: Maintains Eye Contact Mood Description: Euthymic/stable Affect description: euthymic Speech Volume: Normal Speech pattern: coherent, slowed Language & Vocabulary: consistent with education Thought Process: Intact Thought Content: Yes Intact Attention Span Ability: Capable of Focused Attention Memory Description: Grossly Intact Patient Reliability: Reliable Historian Fund of knowledge: Yes average Intelligence Estimate: Average Judgment: Fair Insight: Partial
[2018-05-22] MEDS: Ibuprofen 600 MG TABLET PO PRN (14:59)
[2018-05-22] MEDS: traZODone 50 MG TABLET PO PRN (20:36)
[2018-05-22] MEDS: Mirtazapine 15 MG TABLET PO SCH (20:36)
[2018-05-23] MEDS: traMADol 50 MG TABLET PO PRN (05:23)
[2018-05-23] MEDS: Nicotine 21 MG PATCH.TD24 TD SCH (08:50)
[2018-05-23 08:52] VITALS: BP 124/84
--- NOTE | 2018-05-23 09:44 | Discharge Summary ---
Date of Encounter: 05/23/18 Time of Encounter: 09:20 Diagnosis - Discharge Diagnosis (1) Suicidal ideation Status: Resolved Comments: Patient not in danger to self/others at present will be discharged to rehab (2) Bipolar disorder current episode depressed Status: Acute Comments: patient moods are stable Qualifiers: Current episode severity: mild Qualified Code(s): F31.31 - Bipolar disorder , current episode depressed, mild (3) Mild tetrahydrocannabinol (THC) abuse Status: Acute Comments: will be going to rehab for continuity of treatment/ Medications - Discharge Medications Prescriptions: Mirtazapine [Remeron] 15 mg PO HS #14 tablet Nicotine Patch [Nicoderm] 21 mg TD DAILY #14 patch.[id number] Propranolol [Inderal] 10 mg PO BID #30 tablet Pregabalin [Lyrica] 50 mg PO BID 04/14/18 [History] Mirtazapine [Remeron] 15 mg PO HS #14 tablet 05/23/18 [Rx] Nicotine Patch [Nicoderm] 21 mg TD DAILY #14 patch.td24 05/23/18 [Rx] Propranolol [Inderal] 10 mg PO BID #30 tablet 05/23/18 [Rx] 3 Allergy/AdvReac Type Severity Reaction Status Date / Time Sulfa (Sulfonamide Allergy Hives Verified 05/15/18 19:13 Antibiotics) calamine AdvReac Rash Verified 05/15/18 19:13 diphenhydramine AdvReac Anxiety Verified 05/15/18 19:13 [From Benadryl] hydroxyzine AdvReac Rash Verified 05/21/18 23:31 Provider Date of admission: 05/16/18 00:17 Primary care physician: PCP NONE Psychiatry Exam - Constitutional Vitals: Temp Pulse Resp BP Pulse Ox 98 F 75 16 124/84 97 05/23/18 08:51 05/23/18 08:51 05/23/18 08:51 05/23/18 08:51 05/15/18 19:41 General appearance: age & developmentally appropriate - Musculoskeletal Gait: normal Station: relaxed Strength & Tone: normal for patient - Psychiatric Patient Orientation: Yes Person, Yes Time, Yes Place Level of alertness: Alert Behavior: calm, cooperative Psychomotor activity: Normal Eye Contact: Maintains Eye Contact Mood Description: Euthymic/stable Affect description: congruent with mood Speech Volume: Normal Speech pattern: clear, coherent Language & Vocabulary: consistent with education Thought Process: Intact Thought Content: Yes Intact Attention Span Ability: Capable of Focused Attention Memory Description: Grossly Intact Patient Reliability: Reliable Historian Fund of knowledge: Yes abstraction ability Intelligence Estimate: Average Judgment: Fair Insight: Partial Hospital Course Hospital course: Mr. Parekh is a 47 year old male was admitted from the emergency department for suicidal ideation. Patient was recently discharged from this units was diagnosis of bipolar disorder depressed patient did not follow up as planned and did not continue to take his medication he currently is stressed out by being homeless and focus on this issue when asked about suicidal ideation he answer in a vague and evasive away by saying I do not know. UDS was positive for THC. COURSE OF HOSPITALIZATION: Patient had shown improvement in his moods , depression still has some anxiety and his back pain is off and on , especially in mornings , he sleeps well only pain at times will wake him , he was started on Mirtazepam and dose increased to 15 mg , he had improvement with it , denies side effects , last admission here he was given dx of Biolar , he was given lamictal which made him worse , he has been treated for depression in past and at present he gives h/o no soberity of 30 or more days in last 5 years , his s/s can be related to his substance use. he has been stable with remeron and propranolol for anxiety. at present not suicidal , not depress and will go to inpatient rehab. medically stable has chronic back pain . patient stable/baseline to be discharged. at present will discharge to [place]. Time spent discussing smoking cessation with patient: 3 to 10 minutes Does patient wish to continue nicotine replacement upon disc: Yes - Time Spent with Patient Total time spent providing and/or coordinating discharge services: Greater than 30 minutes Assessment and Plan - Patient/Caregiver Discharge Instructions Activity: resume usual activities as tolerated Diet: regular diet - Follow up Plan Follow up with: [facility] [Outside] (You are going into mental health respite at [facility] on discharge from the hospital. While there, clinic staff will open a case for you to become a client, and you will be seen daily by the clinic counselors and case preparer and liner, both individually and in group. ) [facility] [Outside] (The above appointment is with for outpatient psychiatric assessment and medication management services. Please arrive 30 minutes early for first time psychiatry appointments, and 15 minutes early for follow-up psychiatry appointments. Please bring your photo ID (bring proof of address if you do not have an ID), insurance card and medication list. IF YOU DO NOT BRING YOUR INSURANCE CARD YOU CANNOT BE SEEN. The above appointment(s) reflects first availability. You may contact the office regularly to check for cancellations that may allow you to be seen sooner. Additionally, the new case managers assigned to you will contact you directly to schedule your intake appointment for case management and mental health counseling services. ) Functional capacity at discharge: independent ambulation Overall status at discharge: Stable Disposition: Transfer Inpatient Rehab Fac Quality - Multiple Antipsychotics Patient discharged on 2 or more antipsychotic medications: No Procedures - Procedures Procedures: Medication Management, Crisis Stabilization, Supportive Therapy, Group Therapy, Psychoeducational Therapy
== END 2018-05-23 12:25 ==
LOC: 1ANU 18:51 → EMEROOARM 18:51 → SUATTDRO 05-16 00:17 → 1ANU 05-16 00:30
PROVIDERS: ADMIT Psychiatry & Neurology Psychiatry; ATTEND Psychiatry & Neurology Psychiatry

== ENCOUNTER 2018-08-24 16:59 | Observation (INO) ==
--- NOTE | 2018-08-24 17:31 | Emergency Department Note ---
Disposition Clinical Impression: Suicidal ideation, Substance abuse Depression Qualifiers: Depression Type: unspecified Qualified Code(s): F32.9 - Major depressive diso rder, single episode, unspecified Disposition: Still a Patient Condition: Fair Referrals: NONE,PCP [Primary Care Provider] - Forms: ED Satisfaction Letter General Adult HPI - General Chief complaint: ED Psychiatric Symptoms Stated complaint: SI Time Seen by Provider: 08/24/18 17:01 Source: patient, EMS Limitations: no limitations Nursing Notes Reviewed: Yes Vital Signs Reviewed: Yes - History of Present Illness Pain Scale: 7 - Related Data Home Medications Medication Instructions Recorded Confirmed No Known Home Drugs 08/24/18 08/24/18 Allergies Allergy/AdvReac Type Severity Reaction Status Date / Time Sulfa (Sulfonamide Allergy Hives Verified 08/24/18 17:26 Antibiotics) calamine AdvReac Rash Verified 08/24/18 17:26 diphenhydramine AdvReac Anxiety Verified 08/24/18 17:26 [From Benadryl] hydroxyzine AdvReac Rash Verified 08/24/18 17:26 Past Medical History - Past Medical History Medical history: Reports: arthritis, GERD, other Surgical history: Reports: non-contributory, other Psychiatric history: Reports: anxiety, depression, PTSD, previous psychiatric hospitalization - Social History Smoking Status: Current every day smoker Smokeless Tobacco Status: Yes Alcohol use: Reports: none Drug use: Reports: marijuana, methamphetamine, IV Drug Use Physical Exam - General Limitations: no limitations General appearance: alert Course Vital Signs Temperature 98.6 F 08/24/18 17:05 Pulse Rate 89 08/24/18 17:05 Respiratory Rate 18 08/24/18 17:05 Blood Pressure 151/92 08/24/18 17:05 O2 Sat by Pulse Oximetry 100 08/24/18 17:05 Temperature 98.6 F 08/24/18 17:05 Pulse Rate 89 08/24/18 17:05 Respiratory Rate 18 08/24/18 17:05 Blood Pressure 151/92 08/24/18 17:05 O2 Sat by Pulse Oximetry 100 08/24/18 17:05 Oxygen Delivery Oxygen Delivery Room Air Medical Decision Making - MDM Narrative Medical decision making narrative: 1800 hrs.: Patient's labs are back. And he has been stable. Waiting on 1A evaluation. Signing him out to the evening ER physician Dr. Kendall for further management disposition. - Lab Data Result diagrams: 08/24/18 17:37 08/24/18 17:37 Lab Results 08/24/18 08/24/18 08/24/18 Range/Units 17:37 17:37 17:40 WBC 7.7 (4.3-11.1) K/mcL RBC 5.19 (4.19-5.50) M/mcL Hgb 15.9 (12.9-16.9) g/dL Hct 48.9 (37.5-50.1) % MCV 94.2 (83.0-100.0) fL MCH 30.6 (28.0-33.3) pg MCHC 32.5 (31.6-35.5) g/dL RDW 12.2 (11.5-14.5) % Plt Count 237 (140-400) K/mcL MPV 10.3 (9.4-12.4) fL Immature Gran % 0.8 (0-4) % Seg Neutrophils % 71.0 % Lymphocytes % 20.1 % Monocytes % 7.2 % Eosinophils % 0.1 % Basophils % 0.8 % Neutrophils # 5.5 (1.6-8.9) K/mcL Lymphocytes # 1.5 (0.6-4.6) K/mcL Monocytes # 0.6 (0.0-1.3) K/mcL Eosinophils # 0.0 (0.0-0.6) K/mcL Basophils # 0.1 (0.0-0.2) K/mcL Sodium 132 L (136-145) mEq/L Potassium 3.3 L (3.5-5.1) mEq/L Chloride 99 (98-107) mEq/L Carbon Dioxide 26 (23-29) mEq/L BUN 7 (6-20) mg/dL Creatinine 0.93 (0.70-1.30) mg/dL Est GFR ( Amer) > 60 (> 60) Est GFR (Non-Af Amer) > 60 (> 60) BUN/Creatinine Ratio 8 (6-26) Glucose 184 H (70-105) mg/dL Calculated Osmolality 277 L (280-300) Calcium 9.5 (8.6-10.3) mg/dL Total Bilirubin 0.7 (0.3-1.0) mg/dL AST 35 (13-39) Units/L ALT 49 (7-52) Units/L Alkaline Phosphatase 70 (34-104) Units/L Serum Total Protein 7.5 (6.4-8.9) g/dL Albumin 4.1 (3.5-5.7) g/dL Globulin 3.4 (2.4-3.5) g/dL Albumin/Globulin Ratio 1.2 (1.1-2.2) TSH 0.096 L (0.340-5.600) mcIU/mL Salicylates < 2.5 L (15.0-30.0) mg/dL Urine Opiates Screen Negative (Zxirqz=368) ng/mL Acetaminophen < 10 L (10-20) mcg/mL Ur Barbiturates Screen Negative (Btsrmj=941) ng/mL Ur Phencyclidine Scrn Negative (Cutoff=25) ng/mL Ur Amphetamines Screen Positive H (Iqutud=0667) ng/mL U Benzodiazepines Scrn Negative (Lrltsb=503) ng/mL Urine Cocaine Screen Negative (Cutoff= 300) ng/mL U Marijuana (THC) Screen Positive H (Cutoff = 50) ng/mL Ur Drug Screen Interp See Below Ethyl Alcohol < 10 (Less than 10) mg/dL Attestation Statement - Attestation Attestation: This documentation is done with the assistance of Dragon dictation. Despite efforts made to ensure accuracy, there may be inaccuracies in mails supervisor or spelling and typographical errors. I examined this patient and my medical decision-making was reviewed with the Resident Physician. I agree with the documented findings, disposition and treatment plan as described except to the extent set forth below. Patient seen and evaluated on arrival with Dr. Fontenot and EMS, I agree with his evaluation and management plan supervised the care the patient's stay. 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 Patient states he was this bad Abilify but cannot afford that. He had a friend dropped him off at [facility] today. But he does not have a home. She states he has been admitted to before and thinks he needs that again. Patient states he is not hearing voices at this time. He is agreeing to lab work. He is a sitter in place and is AMA suicide precautions [address] Once labs are back we will consult for evaluation.
--- NOTE | 2018-08-24 17:35 | Emergency Department Note ---
Disposition Clinical Impression: Suicidal ideation, Substance abuse Depression Qualifiers: Depression Type: unspecified Qualified Code(s): F32.9 - Major depressive diso rder, single episode, unspecified Disposition: Still a Patient Condition: Fair Referrals: NONE,PCP [Primary Care Provider] - Forms: ED Satisfaction Letter Psych HPI - General Chief Complaint: ED Psychiatric Symptoms Stated Complaint: SI Time Seen by Provider: 08/24/18 17:01 Source: patient, EMS Mode of arrival: ambulatory Limitations: no limitations Nursing Notes Reviewed: Yes Vital Signs Reviewed: Yes - History of Present Illness HPI Narrative: 47-year-old male with a history of substance abuse, meth, anxiety depression presents for evaluation of suicidal ideation. Patient states "I am in a bad place right now". Patient states it is homeless. Patient was prescribed Abilify in the past but has not taking Abilify simply because he does not have access to medication. Patient states that it was not helping him in the first place. Patient does have a history of SI with prior attempts an overdose. Den ies taking any medications or concerns for overdose at this time. Patient denies any homicidal ideation. Patient denies any delusions or hallucinations. Reports history of meth as well as drug use. Reports some chest pain related a cough and a cold however denies any abdominal pain or nausea vomiting no fevers. - Related Data Home Medications Medication Instructions Recorded Confirmed RX: No Known Home Drugs 08/24/18 08/24/18 Allergies Allergy/AdvReac Type Severity Reaction Status Date / Time Sulfa (Sulfonamide Allergy Hives Verified 08/24/18 17:26 Antibiotics) calamine AdvReac Rash Verified 08/24/18 17:26 diphenhydramine AdvReac Anxiety Verified 08/24/18 17:26 [From Benadryl] hydroxyzine AdvReac Rash Verified 08/24/18 17:26 All systems ED: reviewed and negative except as stated. Constitutional: Denies: fever Cardiovascular: Reports: chest pain Respiratory: Reports: cough Gastrointestinal: Denies: abdominal pain, nausea, vomiting Psychiatric: Reports: depression, suicidal thoughts. Denies: homicidal thoughts, auditory hallucinations, visual hallucinations Past Medical History - Past Medical History Source: patient Medical history: Reports: arthritis, GERD, other Surgical history: Reports: non-contributory, other Psychiatric history: Reports: anxiety, depression, PTSD, previous psychiatric hospitalization - Social History Smoking Status: Current every day smoker Smokeless Tobacco Status: Yes Alcohol use: Reports: none Drug use: Reports: marijuana, methamphetamine, IV Drug Use Physical Exam - General Limitations: no limitations General appearance: alert, in no apparent distress - Head Head exam: atraumatic, normocephalic, normal inspection - Eye Eye exam: Present: normal appearance, PERRL, EOMI. Absent: miosis - ENT ENT exam: normal exam, normal oropharynx, mucous membranes moist - Neck Neck exam: Present: normal inspection - Chest Chest inspection: Present: normal inspection, symmetric chest wall rise - Respiratory Respiratory exam: Present: normal lung sounds bilaterally. Absent: respiratory distress - Cardiovascular Cardiovascular exam: Present: regular rate, normal rhythm. Absent: systolic murmur - Abdominal Exam Abdominal exam: Present: soft, Non-Tender - Extremities Exam Extremities exam: Present: normal inspection. Absent: pedal edema (no cuttiing wong, no signs of secondary infection) - Back Exam Back exam: Present: normal inspection - Neurological Exam Neurological exam: Present: alert, oriented X3, CN II-XII intact - Skin Skin exam: Present: warm, dry, intact, normal color Course Course Narrative: Patient seen and examined. Patient will get psychiatric evaluation following medical clearance. States that he feels that he does need to be admitted. Does have history of prior hospitalizations. - Consultations Consultation #1: Spoke with psychiatry patient's medically cleared. Awaiting psychiatric evaluation and ultimate disposition Time: 18:36 Vital Signs Temperature 98.6 F 08/24/18 17:05 Pulse Rate 89 08/24/18 17:05 Respiratory Rate 18 08/24/18 17:05 Blood Pressure 151/92 08/24/18 17:05 O2 Sat by Pulse Oximetry 100 08/24/18 17:05 Temperature 98.6 F 08/24/18 17:05 Pulse Rate 89 08/24/18 17:05 Respiratory Rate 18 08/24/18 17:05 Blood Pressure 151/92 08/24/18 17:05 O2 Sat by Pulse Oximetry 100 08/24/18 17:05 Oxygen Delivery Oxygen Delivery Room Air Psych - Lab Data Result diagrams: 08/24/18 17:37 08/24/18 17:37 Lab Results 08/24/18 08/24/18 08/24/18 Range/Units 17:37 17:37 17:40 WBC 7.7 (4.3-11.1) K/mcL RBC 5.19 (4.19-5.50) M/mcL Hgb 15.9 (12.9-16.9) g/dL Hct 48.9 (37.5-50.1) % MCV 94.2 (83.0-100.0) fL MCH 30.6 (28.0-33.3) pg MCHC 32.5 (31.6-35.5) g/dL RDW 12.2 (11.5-14.5) % Plt Count 237 (140-400) K/mcL MPV 10.3 (9.4-12.4) fL Immature Gran % 0.8 (0-4) % Seg Neutrophils % 71.0 % Lymphocytes % 20.1 % Monocytes % 7.2 % Eosinophils % 0.1 % Basophils % 0.8 % Neutrophils # 5.5 (1.6-8.9) K/mcL Lymphocytes # 1.5 (0.6-4.6) K/mcL Monocytes # 0.6 (0.0-1.3) K/mcL Eosinophils # 0.0 (0.0-0.6) K/mcL Basophils # 0.1 (0.0-0.2) K/mcL Sodium 132 L (136-145) mEq/L Potassium 3.3 L (3.5-5.1) mEq/L Chloride 99 (98-107) mEq/L Carbon Dioxide 26 (23-29) mEq/L BUN 7 (6-20) mg/dL Creatinine 0.93 (0.70-1.30) mg/dL Est GFR ( Amer) > 60 (> 60) Est GFR (Non-Af Amer) > 60 (> 60) BUN/Creatinine Ratio 8 (6-26) Glucose 184 H (70-105) mg/dL Calculated Osmolality 277 L (280-300) Calcium 9.5 (8.6-10.3) mg/dL Total Bilirubin 0.7 (0.3-1.0) mg/dL AST 35 (13-39) Units/L ALT 49 (7-52) Units/L Alkaline Phosphatase 70 (34-104) Units/L Serum Total Protein 7.5 (6.4-8.9) g/dL Albumin 4.1 (3.5-5.7) g/dL Globulin 3.4 (2.4-3.5) g/dL Albumin/Globulin Ratio 1.2 (1.1-2.2) TSH 0.096 L (0.340-5.600) mcIU/mL Salicylates < 2.5 L (15.0-30.0) mg/dL Urine Opiates Screen Negative (Uozwkn=428) ng/mL Acetaminophen < 10 L (10-20) mcg/mL Ur Barbiturates Screen Negative (Uqvyzh=578) ng/mL Ur Phencyclidine Scrn Negative (Cutoff=25) ng/mL Ur Amphetamines Screen Positive H (Qfirhr=1944) ng/mL U Benzodiazepines Scrn Negative (Qclzay=016) ng/mL Urine Cocaine Screen Negative (Cutoff= 300) ng/mL U Marijuana (THC) Screen Positive H (Cutoff = 50) ng/mL Ur Drug Screen Interp See Below Ethyl Alcohol < 10 (Less than 10) mg/dL Psychiatric Medical Clearance - Medical Clearance Checklist Does the patient have a NEW psychiatric condition?: No Any abnormalities indicating possible medical illness?: No Any history of medical issues?: No Medical History: No Social History Section defined Any abnormal vital signs prior to transfer?: No Current Vitals: Last Vital Signs Temp 98.6 F 08/24/18 17:05 Pulse 89 08/24/18 17:05 Resp 18 08/24/18 17:05 BP 151/92 08/24/18 17:05 Pulse Ox 100 08/24/18 17:05 Is the patient intoxicated or cognitively impaired?: No Psychiatric Lab Panel: Drug Levels and Toxicity 08/24/18 08/24/18 17:37 17:40 Urine Opiates Screen Negative Acetaminophen < 10 L Ur Barbiturates Screen Negative Ur Phencyclidine Scrn Negative Ur Amphetamines Screen Positive H U Benzodiazepines Scrn Negative Urine Cocaine Screen Negative U Marijuana (THC) Screen Positive H Ethyl Alcohol < 10 Any abnormalities on the physical exam?: No Any abnormal labs?: Yes Abnormal Labs: Abnormal lab results Sodium 132 mEq/L (136-145) L 08/24/18 17:37 Potassium 3.3 mEq/L (3.5-5.1) L 08/24/18 17:37 Glucose 184 mg/dL (70-105) H 08/24/18 17:37 Calculated Osmolality 277 (280-300) L 08/24/18 17:37 TSH 0.096 mcIU/mL (0.340-5.600) L 08/24/18 17:37 Salicylates < 2.5 mg/dL (15.0-30.0) L 08/24/18 17:37 Acetaminophen < 10 mcg/mL (10-20) L 08/24/18 17:37 Ur Amphetamines Screen Positive ng/mL (Qcwomp=6839) H 08/24/18 17:40 U Marijuana (THC) Screen Positive ng/mL (Cutoff = 50) H 08/24/18 17:40 Does the patient require durable medical equiptment?: No Is the patient ambulatory?: Yes Is the patient a fall risk?: No Has the patient been medically cleared?: Yes Any acute medical condition require Tx prior to transfer?: No Statement of Medical Clearance: I have evaluated the patient, reviewed diagnostic information, and certify that the patient's medical condition is sufficiently stable that transfer to the psychiatric unit does not pose a significant risk of deterioration. Anais - Anais Situation: Demographics Background: Presenting Complaint Assessment: Vital Signs, Course and respsone to treatment, Patient/Family Expectation Recommendation: Barrier(s) to disposition, Recommendation based on pending studies, treatments, or consults Anais Report Given to: Dr. Rocio Manzo Repor Time: 18:58
[2018-08-24 17:55] LABS: Basophils # 0.1 K/mcL (0.0-0.2); Basophils % 0.8 %; Eosinophils % 0.1 %; Hematocrit 48.9 % (37.5-50.1); Hemoglobin 15.9 g/dL (12.9-16.9); Immature Granulocytes % 0.8 % (0-4); Lymphocytes # 1.5 K/mcL (0.6-4.6); Lymphocytes % 20.1 %; Mean Corpuscular HGB Conc 32.5 g/dL (31.6-35.5); Mean Corpuscular Hemoglobin 30.6 pg (28.0-33.3); Mean Corpuscular Volume 94.2 fL (83.0-100.0); Mean Platelet Volume 10.3 fL (9.4-12.4); Monocytes # 0.6 K/mcL (0.0-1.3); Monocytes % 7.2 %; Neutrophils # 5.5 K/mcL (1.6-8.9); Platelet Count 237 K/mcL (140-400); Red Blood Count 5.19 M/mcL (4.19-5.50); Red Cell Distribution Width 12.2 % (11.5-14.5)
[2018-08-24 18:10] LABS: Amphetamine Screen,Urine Positive ng/mL (Cutoff=1000); Barbiturate Screen,Urine Negative ng/mL (Cutoff=200); Benzodiazepines Screen,Urine Negative ng/mL (Cutoff=200); Cannabinoid Screen,Urine Positive ng/mL (Cutoff = 50); Cocaine Screen,Urine Negative ng/mL (Cutoff= 300); Opiate Screen,Urine Negative ng/mL (Cutoff=300); Phencyclidine Screen,Urine Negative ng/mL (Cutoff=25)
[2018-08-24 18:17] LABS: Acetaminophen < 10 mcg/mL (10-20); Alanine Aminotransferase 49 Units/L (7-52); Albumin 4.1 g/dL (3.5-5.7); Albumin/Globulin Ratio 1.2 (1.1-2.2); Alkaline Phosphatase 70 Units/L (34-104); Aspartate Amino Transferase 35 Units/L (13-39); BUN/Creatinine Ratio 8 (6-26); Bilirubin,Total 0.7 mg/dL (0.3-1.0); Blood Urea Nitrogen 7 mg/dL (6-20); Calcium 9.5 mg/dL (8.6-10.3); Carbon Dioxide 26 mEq/L (23-29); Chloride 99 mEq/L (98-107); Ethanol < 10 mg/dL (Less than 10); Globulin 3.4 g/dL (2.4-3.5); Glucose 184 mg/dL (70-105); Osmolality,Calculated 277 (280-300); Potassium 3.3 mEq/L (3.5-5.1); Salicylate < 2.5 mg/dL (15.0-30.0); Sodium 132 mEq/L (136-145); Total Protein 7.5 g/dL (6.4-8.9); eGFR For Non-African Americans > 60 (> 60)
[2018-08-24 18:29] LABS: Thyroid Stimulating Hormone 0.096 mcIU/mL (0.340-5.600)
--- NOTE | 2018-08-24 22:21 | Emergency Department Note ---
Disposition Clinical Impression: Suicidal ideation, Substance abuse Depression Qualifiers: Depression Type: unspecified Qualified Code(s): F32.9 - Major depressive diso rder, single episode, unspecified Disposition: Admitted As Inpatient Condition: Fair Referrals: NONE,PCP [Primary Care Provider] - Forms: ED Satisfaction Letter Psych HPI - General Chief Complaint: ED Psychiatric Symptoms Stated Complaint: SI Time Seen by Provider: 08/24/18 17:01 Source: patient, EMS Mode of arrival: ambulatory Limitations: no limitations Nursing Notes Reviewed: Yes Vital Signs Reviewed: Yes - Related Data Home Medications Medication Instructions Recorded Confirmed No Known Home Drugs 08/24/18 08/24/18 Allergies Allergy/AdvReac Type Severity Reaction Status Date / Time Sulfa (Sulfonamide Allergy Hives Verified 08/24/18 17:26 Antibiotics) calamine AdvReac Rash Verified 08/24/18 17:26 diphenhydramine AdvReac Anxiety Verified 08/24/18 17:26 [From Benadryl] hydroxyzine AdvReac Rash Verified 08/24/18 17:26 Constitutional: Denies: fever Cardiovascular: Reports: chest pain Respiratory: Reports: cough Gastrointestinal: Denies: abdominal pain, nausea, vomiting Psychiatric: Reports: depression, suicidal thoughts. Denies: homicidal thoughts, auditory hallucinations, visual hallucinations Past Medical History - Past Medical History Medical history: Reports: arthritis, GERD, other Surgical history: Reports: non-contributory, other Psychiatric history: Reports: anxiety, depression, PTSD, previous psychiatric hospitalization - Social History Smoking Status: Current every day smoker Smokeless Tobacco Status: Yes Alcohol use: Reports: none Drug use: Reports: marijuana, methamphetamine, IV Drug Use Physical Exam - General Limitations: no limitations General appearance: alert Course Course Narrative: Patient taken over at sign out from Dr. Bragg. Patient presenting for evaluation of SI. Previous history of methamphetamine abuse. Last use was 4-5 days ago. Patient was started on Abilify but cannot afford this medication. Patient presented with thoughts of SI as well as depression. Patient's lack of resources likely contributing. After one a's evaluation of the patient. I did notify him of our plan to discharge. Patient states "that is it, I am done, give me my papers". I asked further what he meant. He states that he is tired of living and he would like to be discharged to go kill himself. Patient states that there is multiple ways that he could kill himself and he would figure it out as soon as he is discharged. Comments and concerns and given his own in the setting of his overall temperament was concerning for patient's ability to follow through. I rediscussed with the mental health team and the patient has been excepted for 24-hour observation and reevaluation by the psychiatrist. Vital Signs Temperature 98.6 F 08/24/18 17:05 Pulse Rate 89 08/24/18 17:05 Respiratory Rate 18 08/24/18 17:05 Blood Pressure 151/92 08/24/18 17:05 O2 Sat by Pulse Oximetry 100 08/24/18 17:05 Temperature 98.6 F 08/24/18 17:05 Pulse Rate 89 08/24/18 17:05 Respiratory Rate 18 08/24/18 17:05 Blood Pressure 151/92 08/24/18 17:05 O2 Sat by Pulse Oximetry 100 08/24/18 17:05 Oxygen Delivery Oxygen Delivery Room Air Psych - Lab Data Result diagrams: 08/24/18 17:37 08/24/18 17:37 Lab Results 08/24/18 08/24/18 08/24/18 Range/Units 17:37 17:37 17:40 WBC 7.7 (4.3-11.1) K/mcL RBC 5.19 (4.19-5.50) M/mcL Hgb 15.9 (12.9-16.9) g/dL Hct 48.9 (37.5-50.1) % MCV 94.2 (83.0-100.0) fL MCH 30.6 (28.0-33.3) pg MCHC 32.5 (31.6-35.5) g/dL RDW 12.2 (11.5-14.5) % Plt Count 237 (140-400) K/mcL MPV 10.3 (9.4-12.4) fL Immature Gran % 0.8 (0-4) % Seg Neutrophils % 71.0 % Lymphocytes % 20.1 % Monocytes % 7.2 % Eosinophils % 0.1 % Basophils % 0.8 % Neutrophils # 5.5 (1.6-8.9) K/mcL Lymphocytes # 1.5 (0.6-4.6) K/mcL Monocytes # 0.6 (0.0-1.3) K/mcL Eosinophils # 0.0 (0.0-0.6) K/mcL Basophils # 0.1 (0.0-0.2) K/mcL Sodium 132 L (136-145) mEq/L Potassium 3.3 L (3.5-5.1) mEq/L Chloride 99 (98-107) mEq/L Carbon Dioxide 26 (23-29) mEq/L BUN 7 (6-20) mg/dL Creatinine 0.93 (0.70-1.30) mg/dL Est GFR ( Amer) > 60 (> 60) Est GFR (Non-Af Amer) > 60 (> 60) BUN/Creatinine Ratio 8 (6-26) Glucose 184 H (70-105) mg/dL Calculated Osmolality 277 L (280-300) Calcium 9.5 (8.6-10.3) mg/dL Total Bilirubin 0.7 (0.3-1.0) mg/dL AST 35 (13-39) Units/L ALT 49 (7-52) Units/L Alkaline Phosphatase 70 (34-104) Units/L Serum Total Protein 7.5 (6.4-8.9) g/dL Albumin 4.1 (3.5-5.7) g/dL Globulin 3.4 (2.4-3.5) g/dL Albumin/Globulin Ratio 1.2 (1.1-2.2) TSH 0.096 L (0.340-5.600) mcIU/mL Salicylates < 2.5 L (15.0-30.0) mg/dL Urine Opiates Screen Negative (Ivbotc=588) ng/mL Acetaminophen < 10 L (10-20) mcg/mL Ur Barbiturates Screen Negative (Txdnkv=635) ng/mL Ur Phencyclidine Scrn Negative (Cutoff=25) ng/mL Ur Amphetamines Screen Positive H (Wlscqe=9259) ng/mL U Benzodiazepines Scrn Negative (Wgybnj=893) ng/mL Urine Cocaine Screen Negative (Cutoff= 300) ng/mL U Marijuana (THC) Screen Positive H (Cutoff = 50) ng/mL Ur Drug Screen Interp See Below Ethyl Alcohol < 10 (Less than 10) mg/dL Psychiatric Medical Clearance - Medical Clearance Checklist Medical History: No Social History Section defined Current Vitals: Last Vital Signs Temp 98.6 F 08/24/18 17:05 Pulse 89 08/24/18 17:05 Resp 18 08/24/18 17:05 BP 151/92 08/24/18 17:05 Pulse Ox 100 08/24/18 17:05 Psychiatric Lab Panel: Drug Levels and Toxicity 08/24/18 08/24/18 17:37 17:40 Urine Opiates Screen Negative Acetaminophen < 10 L Ur Barbiturates Screen Negative Ur Phencyclidine Scrn Negative Ur Amphetamines Screen Positive H U Benzodiazepines Scrn Negative Urine Cocaine Screen Negative U Marijuana (THC) Screen Positive H Ethyl Alcohol < 10 Abnormal Labs: Abnormal lab results Sodium 132 mEq/L (136-145) L 08/24/18 17:37 Potassium 3.3 mEq/L (3.5-5.1) L 08/24/18 17:37 Glucose 184 mg/dL (70-105) H 08/24/18 17:37 Calculated Osmolality 277 (280-300) L 08/24/18 17:37 TSH 0.096 mcIU/mL (0.340-5.600) L 08/24/18 17:37 Salicylates < 2.5 mg/dL (15.0-30.0) L 08/24/18 17:37 Acetaminophen < 10 mcg/mL (10-20) L 08/24/18 17:37 Ur Amphetamines Screen Positive ng/mL (Zfndol=4062) H 08/24/18 17:40 U Marijuana (THC) Screen Positive ng/mL (Cutoff = 50) H 08/24/18 17:40 Statement of Medical Clearance: I have evaluated the patient, reviewed diagnostic information, and certify that the patient's medical condition is sufficiently stable that transfer to the psychiatric unit does not pose a significant risk of deterioration.
[2018-08-25] MEDS ORDERED: *HR* LORazepam 2 MG/ML VIAL IM PRN (00:11)
[2018-08-25] MEDS ORDERED: traZODone 50 MG TABLET PO PRN (00:11)
[2018-08-25] MEDS ORDERED: Ibuprofen 400 MG TABLET PO PRN (00:11)
[2018-08-25] MEDS ORDERED: *HR* LORazepam 1 MG TABLET PO PRN (00:11)
[2018-08-25] MEDS ORDERED: MOM Conc 10 ML UD.LIQ PO PRN (00:11)
[2018-08-25] MEDS ORDERED: Mag Hydrox/Al Hydrox/Simeth 30 ML UDC PO PRN (00:11)
[2018-08-25] MEDS ORDERED: Haloperidol Lactate 5 MG/ML VIAL IM PRN (00:11)
[2018-08-25] MEDS: Nicotine 21 MG PATCH.TD24 TD SCH (09:42)
--- NOTE | 2018-08-25 09:43 | Psychiatry History & Physical ---
Date of Encounter: 08/25/18 Time of Encounter: 09:35 History of Present Illness Patient Stated Chief Complaint: suicidal ideation Medicare Admission Attestation: For traditional Medicare patients the provided hospital inpatient services are reasonable and necessary and in the case of services not specified as inpatient-only under 42 CFR 419.22 (n), that they are appropriately provided as inpatient services in accordance 42 CFR 412.3. For Critical Access Hospital the patient may reasonably be expected to be discharged or transferred to a hospital within 96 hours after admission to the Critical Access Hospital. Admitted From: Home Plans for Post Hospital Care: Home History of Present Illness: Mr. Parekh is a 47 year old male who was admitted for SI. Presented to the ER stating he would hurt himself if released as he is homeless and has nowhere to go. Thinks he may have somewhere to go in a few days (believes he can go with a friend out of state). Staff attempted to discharge him from the ER since he appeared to be conditionally suicidal but client upped the ante and he ended up coming to [facility]. Continues to endorse SI today but has future orientation and says he plans to go out of state with a friend but can't do this until after the first of the year. Wants restarted on Abilify. Claims this medication works for him. Past diagnoses include Bipolar II, PTSD, and ADD. Client does not know what PTSD diagnosis is from. Understands he will not be treated for ADD in the hospital. Reports prior admissions to [facility] and two past suicide attempts via overdose. Likely not truly suicidal but may try to harm himself if discharged in order to get into the hospital to have somewhere to stay. Given that he has two past attempts he is high risk to overdose again and potentially have a more negative outcome than he intends. Physically healthy except for club feet that give him pain. Abusing THC and Meth in the community. Cooperative today. Past Med Surg Social Fam HX - Past Medical History Medical history: arthritis, GERD, other - Past Psychiatric History Psychiatric history: Reports: bipolar, depression, prior suicide attempt, previous psychiatric hospitalization Family psychiatric history: Unknown Family History of Suicide: Unknown - Past Surgical History Surgical History: non-contributory - Social History Smoking Status: Current every day smoker Smokeless Tobacco Status: No Alcohol use: none Drug use: marijuana, methamphetamine, IV Drug Use - Family History Mother Adopted: No Family Member Ethnicity: Non- Living Status: Hx Family Cardiac Disorders: Yes (CHF) Hx Family Respiratory Disorders: Yes (COPD) Hx Family Cancer: No Hx Family GI Disorders: Yes (unknown) Hx Family Endocrine Disorder: Yes (Type 1 DM) Hx Family Neuromuscular Disorders: No Hx Family Neurologic Disorders: No Hx Family HEENT Disorders: No Hx Family Autoimmune Disorders: No Medications & Allergies No Known Home Drugs 08/24/18 [History] Allergy/AdvReac Type Severity Reaction Status Date / Time Sulfa (Sulfonamide Allergy Hives Verified 08/24/18 17:26 Antibiotics) calamine AdvReac Rash Verified 08/24/18 17:26 diphenhydramine AdvReac Anxiety Verified 08/24/18 17:26 [From Benadryl] hydroxyzine AdvReac Rash Verified 08/24/18 17:26 Review of Systems Constitutional: Denies: fever, chills, weakness, weight change Eyes: Denies: eye pain, vision change Ears, Nose, Throat: Denies: ear pain, throat pain, dental pain, hearing loss, congestion Cardiovascular: Denies: chest pain, palpitations, dyspnea on exertion Respiratory: Denies: cough, dyspnea, wheezes Gastrointestinal: Denies: abdominal pain, nausea, vomiting, diarrhea, constipation Genitourinary male: Denies: urgency, dysuria, frequency, genital lesions Musculoskeletal: Reports: other Integumentary: Denies: rash, lesions, pruritus Neurological: Denies: headache, weakness, numbness, memory loss Endocrine: Denies: fatigue, heat or cold intolerance Hematologic/Lymphatic: Denies: easy bruising, lymphadenopathy Allergic/Immunologic: Denies: urticaria, itchy eyes Exam - HEENT Head exam IM: Present: atraumatic Eye exam IM: Present: EOMI, normal appearance, PERRL ENT exam IM: Present: normal exam - Neurological Neurological exam: Present: CN II-XII intact - Respiratory Respiratory exam IM: Present: CTAB - GI/Abdominal GI/Abdominal exam IM: Present: normal bowel sounds, soft. Absent: tenderness - Extremities Extremities exam IM: Present: full ROM - Skin Skin exam IM: Present: dry, warm - Constitutional Vitals: Temp Pulse Resp BP Pulse Ox 98.6 F 89 18 151/92 100 08/24/18 17:05 08/24/18 17:05 08/24/18 17:05 08/24/18 17:05 08/24/18 17:05 General appearance: age & developmentally appropriate - Musculoskeletal Gait: normal Station: relaxed Strength & Tone: normal for patient - Psychiatric Patient Orientation: Yes Person, Yes Time, Yes Place, Yes Circumstance Level of alertness: Alert Behavior: calm, cooperative Psychomotor activity: Normal Eye Contact: Maintains Eye Contact Mood Description: Depressed Affect description: congruent with mood Speech Volume: Normal Speech pattern: normal rate, normal rhythm, normal tone, fluent, spontaneous Language & Vocabulary: consistent with education Thought Process: Linear, Goal Oriented Thought Content: Yes Suicidal ideation, No Homicidal ideation, No Overt delusions Perceptual Disturbances: No Auditory hallucinations, No Visual hallucinations Attention Span Ability: Capable of Focused Attention Memory Description: Grossly Intact Patient Reliability: Reliable Historian Fund of knowledge: Yes abstraction ability, Yes average, Yes aware of current events Intelligence Estimate: Average Judgment: Limited Insight: Partial Results - Drug Levels and Toxicology Drug Levels and Toxicology: Drug Levels and Toxicity 08/24/18 08/24/18 17:37 17:40 Urine Opiates Screen Negative Acetaminophen < 10 L Ur Barbiturates Screen Negative Ur Phencyclidine Scrn Negative Ur Amphetamines Screen Positive H U Benzodiazepines Scrn Negative Urine Cocaine Screen Negative U Marijuana (THC) Screen Positive H Ethyl Alcohol < 10 - Labs Labs: Laboratory Last Values WBC 7.7 K/mcL (4.3-11.1) 08/24/18 17:37 RBC 5.19 M/mcL (4.19-5.50) 08/24/18 17:37 Hgb 15.9 g/dL (12.9-16.9) 08/24/18 17:37 Hct 48.9 % (37.5-50.1) 08/24/18 17:37 MCV 94.2 fL (83.0-100.0) 08/24/18 17:37 MCH 30.6 pg (28.0-33.3) 08/24/18 17:37 MCHC 32.5 g/dL (31.6-35.5) 08/24/18 17:37 RDW 12.2 % (11.5-14.5) 08/24/18 17:37 Plt Count 237 K/mcL (140-400) 08/24/18 17:37 MPV 10.3 fL (9.4-12.4) 08/24/18 17:37 Immature Gran % 0.8 % (0-4) 08/24/18 17:37 Seg Neutrophils % 71.0 % 08/24/18 17:37 Lymphocytes % 20.1 % 08/24/18 17:37 Monocytes % 7.2 % 08/24/18 17:37 Eosinophils % 0.1 % 08/24/18 17:37 Basophils % 0.8 % 08/24/18 17:37 Neutrophils # 5.5 K/mcL (1.6-8.9) 08/24/18 17:37 Lymphocytes # 1.5 K/mcL (0.6-4.6) 08/24/18 17:37 Monocytes # 0.6 K/mcL (0.0-1.3) 08/24/18 17:37 Eosinophils # 0.0 K/mcL (0.0-0.6) 08/24/18 17:37 Basophils # 0.1 K/mcL (0.0-0.2) 08/24/18 17:37 Sodium 132 mEq/L (136-145) L 08/24/18 17:37 Potassium 3.3 mEq/L (3.5-5.1) L 08/24/18 17:37 Chloride 99 mEq/L (98-107) 08/24/18 17:37 Carbon Dioxide 26 mEq/L (23-29) 08/24/18 17:37 BUN 7 mg/dL (6-20) 08/24/18 17:37 Creatinine 0.93 mg/dL (0.70-1.30) 08/24/18 17:37 Est GFR ( Amer) > 60 (> 60) 08/24/18 17:37 Est GFR (Non-Af Amer) > 60 (> 60) 08/24/18 17:37 BUN/Creatinine Ratio 8 (6-26) 08/24/18 17:37 Glucose 184 mg/dL (70-105) H 08/24/18 17:37 Calculated Osmolality 277 (280-300) L 08/24/18 17:37 Calcium 9.5 mg/dL (8.6-10.3) 08/24/18 17:37 Total Bilirubin 0.7 mg/dL (0.3-1.0) 08/24/18 17:37 AST 35 Units/L (13-39) 08/24/18 17:37 ALT 49 Units/L (7-52) 08/24/18 17:37 Alkaline Phosphatase 70 Units/L (34-104) 08/24/18 17:37 Serum Total Protein 7.5 g/dL (6.4-8.9) 08/24/18 17:37 Albumin 4.1 g/dL (3.5-5.7) 08/24/18 17:37 Globulin 3.4 g/dL (2.4-3.5) 08/24/18 17:37 Albumin/Globulin Ratio 1.2 (1.1-2.2) 08/24/18 17:37 TSH 0.096 mcIU/mL (0.340-5.600) L 08/24/18 17:37 Salicylates < 2.5 mg/dL (15.0-30.0) L 08/24/18 17:37 Urine Opiates Screen Negative ng/mL (Klungl=963) 08/24/18 17:40 Acetaminophen < 10 mcg/mL (10-20) L 08/24/18 17:37 Ur Barbiturates Screen Negative ng/mL (Xeoyta=020) 08/24/18 17:40 Ur Phencyclidine Scrn Negative ng/mL (Cutoff=25) 08/24/18 17:40 Ur Amphetamines Screen Positive ng/mL (Gpytbk=6538) H 08/24/18 17:40 U Benzodiazepines Scrn Negative ng/mL (Ltuszb=567) 08/24/18 17:40 Urine Cocaine Screen Negative ng/mL (Cutoff= 300) 08/24/18 17:40 U Marijuana (THC) Screen Positive ng/mL (Cutoff = 50) H 08/24/18 17:40 Ur Drug Screen Interp See Below 08/24/18 17:40 Ethyl Alcohol < 10 mg/dL (Less than 10) 08/24/18 17:37 Assessment and Plan (1) Bipolar II disorder Current visit: Yes Status: Acute Plan: Admit inpatient for safety and stabilization, Close observation, Suicide Precautions per unit protocol, Encourage participation in unit milieu, Group Therapy, Monitor sleep, Monitor appetite Risks, benefits, side effects, alternatives discussed w/pt: Yes Patient agreeable to treatment: Yes Plans for Post Hospital Care: Home Estimated Length of Stay (Days): 3 (2) Methamphetamine use Current visit: No Status: Acute Plan: Admit inpatient for safety and stabilization, Close observation, Suicide Precautions per unit protocol, Encourage participation in unit milieu, Group Therapy, Monitor sleep, Monitor appetite Risks, benefits, side effects, alternatives discussed w/pt: Yes Patient agreeable to treatment: Yes Plans for Post Hospital Care: Home Estimated Length of Stay (Days): 3 (3) Malingering Current visit: Yes Status: Acute Plan: Admit inpatient for safety and stabilization, Close observation, Suicide Precautions per unit protocol, Encourage participation in unit milieu, Group Therapy, Monitor sleep, Monitor appetite Risks, benefits, side effects, alternatives discussed w/pt: Yes Patient agreeable to treatment: Yes Plans for Post Hospital Care: Home Estimated Length of Stay (Days): 3
[2018-08-26] MEDS: Nicotine 21 MG PATCH.TD24 TD SCH (09:34)
--- NOTE | 2018-08-26 12:07 | Psychiatry Progress Note ---
Date of Encounter: 08/26/18 Time of Encounter: 12:03 Subjective Interval history: Seems to be doing fine. For some reason Abilify order did not go through and he has not yet had a dose. Ordered again to start tonight. Client has taken this medication in the past without issue so suspect it will be fine. Unclear, what happened to the order as the orders to discontinue the Trazodone and have Seroquel available as a prn are both in the system and Abilify order was put in at the same time. Client did say today that Seroquel makes him sleep too heavily so he would prefer not to take it either. Reports he has been diagnosed with Narcolepsy in the past and that, if anything, he sleeps too much and he does not need a sleep aide. Reports SI has improved even though he has not yet started the Abilify. Suspect he will be fine for discharge once he has a housing plan. Homelessness likely the precipitating factor for his admission. Review of Systems Constitutional: Denies: fever, chills, weakness, weight change Eyes: Denies: eye pain, vision change Ears, Nose, Throat: Denies: ear pain, throat pain, dental pain, hearing loss, congestion Cardiovascular: Denies: chest pain, palpitations, dyspnea on exertion Respiratory: Denies: cough, dyspnea, wheezes Gastrointestinal: Denies: abdominal pain, nausea, vomiting, diarrhea, constipation Musculoskeletal: Denies: joint swelling, joint pain Neurological: Denies: headache, weakness, numbness, memory loss Results - Vital Signs Vital Signs: Temp Pulse Resp BP Pulse Ox 98 F 101 20 102/68 96 08/25/18 21:00 08/25/18 21:00 08/25/18 21:00 08/25/18 21:00 08/25/18 21:00 Assessment and Plan (1) Bipolar II disorder Current visit: Yes Status: Acute Plan: Continue hospitalization, Close observation, Suicide Precautions per unit protocol, Encourage participation in unit milieu, Group Therapy, Monitor sleep, Monitor appetite Risks, benefits, side effects, alternatives discussed w/pt: Yes Patient agreeable to treatment: Yes (2) Methamphetamine use Current visit: No Status: Acute Plan: Continue hospitalization, Close observation, Suicide Precautions per unit protocol, Encourage participation in unit milieu, Group Therapy, Monitor sleep, Monitor appetite Risks, benefits, side effects, alternatives discussed w/pt: Yes Patient agreeable to treatment: Yes (3) Malingering Current visit: Yes Status: Acute Plan: Continue hospitalization, Close observation, Suicide Precautions per unit protocol, Encourage participation in unit milieu, Group Therapy, Monitor sleep, Monitor appetite Risks, benefits, side effects, alternatives discussed w/pt: Yes Patient agreeable to treatment: Yes Consult Discharge Plan - Plan Referrals: NONE,PCP [Primary Care Provider] - Psychiatry Exam - Constitutional Vitals: Temp Pulse Resp BP Pulse Ox 98 F 101 20 102/68 96 08/25/18 21:00 08/25/18 21:00 08/25/18 21:00 08/25/18 21:00 08/25/18 21:00 General appearance: age & developmentally appropriate - Musculoskeletal Gait: normal Station: relaxed Strength & Tone: normal for patient - Psychiatric Patient Orientation: Yes Person, Yes Time, Yes Place Level of alertness: Alert Behavior: calm, cooperative Psychomotor activity: Normal Eye Contact: Maintains Eye Contact Mood Description: Depressed Affect description: full range Speech Volume: Normal Speech pattern: normal rate, normal rhythm, normal tone, fluent, spontaneous Language & Vocabulary: consistent with education Thought Process: Linear, Goal Oriented Thought Content: Yes Suicidal ideation, No Homicidal ideation, No Overt delusions Perceptual Disturbances: No Auditory hallucinations, No Visual hallucinations Attention Span Ability: Capable of Focused Attention Memory Description: Grossly Intact Patient Reliability: Reliable Historian Fund of knowledge: Yes abstraction ability, Yes aware of current events Intelligence Estimate: Average Judgment: Limited Insight: Partial
[2018-08-26] MEDS ORDERED: ARIPiprazole 5 MG TABLET PO SCH (21:00)
--- NOTE | 2018-08-27 09:42 | Discharge Summary ---
Date of Encounter: 08/27/18 Time of Encounter: 09:34 Diagnosis - Discharge Diagnosis (1) Bipolar II disorder Status: Acute (2) Methamphetamine use Status: Acute (3) Malingering Status: Acute Medications - Discharge Medications Prescriptions: ARIPiprazole [Abilify] 5 mg PO HS #30 tablet ARIPiprazole [Abilify] 5 mg PO HS #30 tablet 08/27/18 [Rx] Allergy/AdvReac Type Severity Reaction Status Date / Time Sulfa (Sulfonamide Allergy Hives Verified 08/25/18 16:07 Antibiotics) calamine AdvReac See Verified 08/25/18 16:07 Comments diphenhydramine AdvReac See Verified 08/25/18 16:07 [From Benadryl] Comments hydroxyzine AdvReac See Verified 08/25/18 16:07 Comments trazodone AdvReac See Verified 08/25/18 16:07 Comments Results Procedures and tests throughout hospitalization: Completed Lab Orders Category Date Time Status Acetaminophen Stat Lab 08/24/18 17:37 Completed Complete Blood Count [HEME] Stat Lab 08/24/18 17:37 Completed Comprehensive Metabolic Panel Stat Lab 08/24/18 17:37 Completed Drug Screen, Urine [UCHEM] Stat Lab 08/24/18 17:40 Completed Ethanol Stat Lab 08/24/18 17:37 Completed Salicylate Stat Lab 08/24/18 17:37 Completed Thyroid Stimulating Hormone Stat Lab 08/24/18 17:37 Completed Provider Date of admission: 08/24/18 22:25 Primary care physician: PCP NONE Discharging clinician: Yumiko Mendoza Psychiatry Exam - Constitutional Vitals: Temp Pulse Resp BP Pulse Ox 98.6 F 84 18 126/86 97 08/26/18 20:12 08/26/18 20:12 08/26/18 20:12 08/26/18 20:12 08/26/18 20:12 General appearance: age & developmentally appropriate - Musculoskeletal Gait: normal Station: relaxed Strength & Tone: normal for patient - Psychiatric Patient Orientation: Yes Person, Yes Time, Yes Place Level of alertness: Alert Behavior: calm, cooperative Psychomotor activity: Normal Eye Contact: Maintains Eye Contact Mood Description: Euthymic/stable Affect description: congruent with mood, full range Speech Volume: Normal Speech pattern: normal rate, normal rhythm, normal tone, fluent, spontaneous Language & Vocabulary: consistent with education Thought Process: Linear, Goal Oriented Thought Content: No Suicidal ideation, No Homicidal ideation, No Overt delusions Perceptual Disturbances: No Auditory hallucinations, No Visual hallucinations Attention Span Ability: Capable of Focused Attention Memory Description: Grossly Intact Patient Reliability: Reliable Historian Fund of knowledge: Yes abstraction ability, Yes aware of current events Intelligence Estimate: Average Judgment: Limited Insight: Partial Hospital Course Hospital course: Mr. Parekh is a 47 year old male who was admitted to . Client stated in ER he was suicidal secondary to homelessness/having nowhere to go. Staff attempted to discharge him from the ER but client upped the ante and threatened to kill himself if released. ER physician not comfortable letting him go and client admitted to for observation. Client perfectly pleasant during his time on 1A but it is clear he was using the hospital as a place to stay until arrangements could be made for him elsewhere. Today client reports a friend has wired him money and he plans to stay at the [facility] [place] a couple of nights and then he and his friend are going to move to either [place] or [place]. Follow up not needed as client does not yet know what state he is going to. Started on Abilify here with good results. Patient responded well to this medication in the past and requested to start it again. Will give him a month's supply. Client understands he will need to establish himself with outpatient mental health care as soon as he gets to his final destination if he wants to stay on the medication. Denies SI/HI/AH/VH. No evidence of psychosis or major mood disturbance. Sleeping and eating well. No evidence of suicidal thinking. Client denies ideation, intent, or plan. - Time Spent with Patient Total time spent providing and/or coordinating discharge services: Assessment and Plan - Patient/Caregiver Discharge Instructions Activity: resume usual activities as tolerated Diet: regular diet - Follow up Plan Follow up with: NONE,PCP [Primary Care Provider] - Functional capacity at discharge: independent ambulation Overall status at discharge: Stable Disposition: Home, Self-Care Quality - Multiple Antipsychotics Patient discharged on 2 or more antipsychotic medications: No Procedures - Procedures Procedures: Medication Management, Crisis Stabilization, Supportive Therapy, Group Therapy
[2018-08-27] MEDS: Nicotine 21 MG PATCH.TD24 TD SCH (09:48)
[2018-08-27 10:39] VITALS: BP 135/72
== END 2018-08-27 10:25 | disposition home or self-care (01) ==
LOC: EMEROOARM 16:59 → 1ANU 16:59
PROVIDERS: ADMIT Psychiatry & Neurology Psychiatry; ATTEND Psychiatry & Neurology Psychiatry

== ENCOUNTER 2018-08-31 17:09 | Inpatient (IN) ==
[2018-08-31] MEDS ORDERED: Isovue-370 500 ML INFUS..BTL IV ONE (19:14)
[2018-08-31] MEDS ORDERED: 0.9 % Sodium Chloride 1,000 ML IVC ONE (19:15)
[2018-08-31] MEDS ORDERED: Ketorolac 15 MG/ML VIAL IVP ONE (19:16)
--- NOTE | 2018-08-31 19:19 | Emergency Department Note ---
Disposition Clinical Impression: Thrombophlebitis, Substance abuse Cellulitis Qualifiers: Site of cellulitis: extremity Site of cellulitis of extremity: upper extremity Laterality: right Qualified Code(s): L03.113 - Cellulitis of right upper limb Disposition: Admitted As Inpatient Condition: Fair Referrals: Ariel Pantoja MD [Primary Care Provider] - Forms: ED Satisfaction Letter Time of Disposition: 21:43 General Adult HPI - General Chief complaint: ED Skin/Abscess/Foreign Body Stated complaint: Right arm abscess Time Seen by Provider: 08/31/18 19:02 Source: patient Mode of arrival: ambulatory Limitations: no limitations Nursing Notes Reviewed: Yes Vital Signs Reviewed: Yes - History of Present Illness HPI Narrative: 47 year old male with history of IV drug use with injection of methamphetamines presents for evaluation of right arm abscess. Patient is right-hand dominant. Denies any trauma. States he started noted redness on the medial aspect of the right arm with swelling and some painful range of motion. Patient denies any fevers. Has no chest pain and cough. Patient denies abdominal pain or nausea vomiting. States that he used meth approximately 4 days ago. Patient also uses marijuana. Patient denies history of prior abscesses in that area. Patient notes the redness has significantly progressed in the past 2 days. Pain Scale: 10 - Related Data Home Medications Medication Instructions Recorded Confirmed No Known Home Drugs 08/31/18 08/31/18 Allergies Allergy/AdvReac Type Severity Reaction Status Date / Time Sulfa (Sulfonamide Allergy Hives Verified 08/31/18 17:15 Antibiotics) calamine AdvReac See Verified 08/31/18 17:15 Comments diphenhydramine AdvReac See Verified 08/31/18 17:15 [From Benadryl] Comments hydroxyzine AdvReac See Verified 08/31/18 17:15 Comments trazodone AdvReac See Verified 08/31/18 17:15 Comments All systems ED: reviewed and negative except as stated. Constitutional: Denies: fever Cardiovascular: Reports: chest pain Respiratory: Reports: cough. Denies: dyspnea Gastrointestinal: Denies: abdominal pain, nausea, vomiting Musculoskeletal: Denies: back pain Past Medical History - Past Medical History Source: patient Medical history: Reports: arthritis, GERD, other Surgical history: Reports: non-contributory Psychiatric history: Reports: bipolar, depression, prior suicide attempt, previous psychiatric hospitalization - Social History Smoking Status: Current every day smoker Smokeless Tobacco Status: No Alcohol use: Reports: none Drug use: Reports: marijuana, methamphetamine, IV Drug Use Physical Exam - General Limitations: no limitations General appearance: alert, in no apparent distress - Head Head exam: atraumatic, normocephalic, normal inspection - Eye Eye exam: Present: normal appearance, PERRL, EOMI - ENT ENT exam: normal exam, mucous membranes moist - Neck Neck exam: Present: normal inspection - Chest Chest inspection: Present: normal inspection, symmetric chest wall rise - Respiratory Respiratory exam: Present: normal lung sounds bilaterally. Absent: respiratory distress - Cardiovascular Cardiovascular exam: Present: regular rate, normal rhythm. Absent: systolic murmur - Abdominal Exam Abdominal exam: Present: soft, Non-Tender - Expanded Upper Extremity Exam Shoulder exam: Present: normal inspection, full ROM. Absent: tenderness Arm exam: Present: tenderness, erythema (Erythema on the medial aspect of the right arm near the elbow with some tracking of redness proximally. No crepitus. Neurovascularly intact) Elbow exam: Present: tenderness. Absent: full ROM, crepitus, erythema Forearm/Wrist exam: Present: normal inspection Hand exam: Present: normal inspection Vascular exam: Normal: capillary refill, radial pulse - Back Exam Back exam: Present: normal inspection - Neurological Exam Neurological exam: Present: alert, oriented X3, CN II-XII intact - Skin Skin exam: Present: warm, dry, intact, normal color, other (As described above) Course Course Narrative: Patient seen and examined. Patient has a history of IV drug use. Concerns for deep space infection along the right ME. Patient will likely require IV antibiotics. Patient will get basic labs including a lactate IV fluids antibiotics appropriate pain control and imaging of the right upper extremity. Disposition anticipated for admission. Bedside ultrasound does not reveal a discrete abscess or drainable fluid collection. - Reevaluation(s) Reevaluation #1: Patient seen and examined. Patient's in no acute distress. ED course discussed with him at bedside. Patient will be admitted for thrombophlebitis and cellulitis. Time: 21:55 Vital Signs Temperature 98.1 F 08/31/18 17:12 Pulse Rate 98 08/31/18 17:12 Respiratory Rate 14 08/31/18 17:12 Blood Pressure 132/86 08/31/18 17:12 O2 Sat by Pulse Oximetry 99 08/31/18 17:12 Temperature 98.1 F 08/31/18 19:14 Pulse Rate 92 08/31/18 20:19 Respiratory Rate 20 08/31/18 20:19 Blood Pressure 124/78 08/31/18 20:19 O2 Sat by Pulse Oximetry 100 08/31/18 20:19 Oxygen Delivery Oxygen Delivery Room Air Medical Decision Making - MDM Narrative Medical decision making narrative: Patient presents for concerns of redness and possible abscess of the right arm. Patient's in IV drug user. Injected approximately 4 days ago. Notes induration as well as increasing redness over the past 24-48 hours. No fevers or systemic signs or symptoms. Given location the patient's redness and induration concerns for deep space infection and CT of the arm was obtained. Shows evidence of thrombophlebitis as well as cellulitis no discrete fluid collection. Given the location the patient will be admitted with IV antibiotics anti-inflammatories today ensure symptom resolution. Patient was counseled on substance abuse. - Lab Data Lab results reviewed: Yes I reviewed the patient's lab results. Result diagrams: 08/31/18 19:29 08/31/18 19:29 Lab Results 08/31/18 08/31/18 08/31/18 Range/Units 19:29 19:29 19:29 WBC 10.6 (4.3-11.1) K/mcL RBC 5.24 (4.19-5.50) M/mcL Hgb 15.9 (12.9-16.9) g/dL Hct 48.1 (37.5-50.1) % MCV 91.8 (83.0-100.0) fL MCH 30.3 (28.0-33.3) pg MCHC 33.1 (31.6-35.5) g/dL RDW 11.9 (11.5-14.5) % Plt Count 283 (140-400) K/mcL MPV 10.5 (9.4-12.4) fL Immature Gran % 1.2 (0-4) % Seg Neutrophils % 60.1 % Lymphocytes % 27.1 % Monocytes % 9.3 % Eosinophils % 1.3 % Basophils % 1.0 % Neutrophils # 6.3 (1.6-8.9) K/mcL Lymphocytes # 2.9 (0.6-4.6) K/mcL Monocytes # 1.0 (0.0-1.3) K/mcL Eosinophils # 0.1 (0.0-0.6) K/mcL Basophils # 0.1 (0.0-0.2) K/mcL Sodium 136 (136-145) mEq/L Potassium 3.4 L (3.5-5.1) mEq/L Chloride 103 (98-107) mEq/L Carbon Dioxide 27 (23-29) mEq/L BUN 5 L (6-20) mg/dL Creatinine 0.82 (0.70-1.30) mg/dL Est GFR ( Amer) > 60 (> 60) Est GFR (Non-Af Amer) > 60 (> 60) BUN/Creatinine Ratio 6 (6-26) Glucose 91 (70-105) mg/dL Calculated Osmolality 279 L (280-300) Lactic Acid 1.7 (0.5-2.2) mmol/L Calcium 9.7 (8.6-10.3) mg/dL Total Bilirubin 0.4 (0.3-1.0) mg/dL AST 89 H (13-39) Units/L ALT 192 H (7-52) Units/L Alkaline Phosphatase 100 (34-104) Units/L Troponin I (< 0.04) ng/mL Serum Total Protein 8.0 (6.4-8.9) g/dL Albumin 4.1 (3.5-5.7) g/dL Globulin 3.9 H (2.4-3.5) g/dL Albumin/Globulin Ratio 1.1 (1.1-2.2) 08/31/18 Range/Units 19:29 WBC (4.3-11.1) K/mcL RBC (4.19-5.50) M/mcL Hgb (12.9-16.9) g/dL Hct (37.5-50.1) % MCV (83.0-100.0) fL MCH (28.0-33.3) pg MCHC (31.6-35.5) g/dL RDW (11.5-14.5) % Plt Count (140-400) K/mcL MPV (9.4-12.4) fL Immature Gran % (0-4) % Seg Neutrophils % % Lymphocytes % % Monocytes % % Eosinophils % % Basophils % % Neutrophils # (1.6-8.9) K/mcL Lymphocytes # (0.6-4.6) K/mcL Monocytes # (0.0-1.3) K/mcL Eosinophils # (0.0-0.6) K/mcL Basophils # (0.0-0.2) K/mcL Sodium (136-145) mEq/L Potassium (3.5-5.1) mEq/L Chloride (98-107) mEq/L Carbon Dioxide (23-29) mEq/L BUN (6-20) mg/dL Creatinine (0.70-1.30) mg/dL Est GFR ( Amer) (> 60) Est GFR (Non-Af Amer) (> 60) BUN/Creatinine Ratio (6-26) Glucose (70-105) mg/dL Calculated Osmolality (280-300) Lactic Acid (0.5-2.2) mmol/L Calcium (8.6-10.3) mg/dL Total Bilirubin (0.3-1.0) mg/dL AST (13-39) Units/L ALT (7-52) Units/L Alkaline Phosphatase (34-104) Units/L Troponin I < 0.03 (< 0.04) ng/mL Serum Total Protein (6.4-8.9) g/dL Albumin (3.5-5.7) g/dL Globulin (2.4-3.5) g/dL Albumin/Globulin Ratio (1.1-2.2) - Radiology Data Radiology results reviewed: Yes I reviewed the patient's radiology results. Chest X-Ray 08/31/18 19:14 IMPRESSION: No acute process. D/ / Saul Reyes MD / Saul Reyes MD Interpreting Provider: Saul Reyes MD Chest X-Ray 08/31/18 19:14 IMPRESSION: No acute process. D/ / Saul Reyes MD / Saul Reyes MD Interpreting Provider: Saul Reyes MD Upper Extremity CT 08/31/18 19:14 IMPRESSION: 1. Thrombophlebitis of the basilic vein and median cubital vein with adjacent soft tissue stranding and edema most compatible with cellulitis. No organized drainable fluid collection identified to suggest abscess. 2. No acute osseous abnormality identified. D/ / Kayode Machuca MD / Kayode Machuca MD Interpreting Provider: Kayode Machuca MD - EKG Data EKG #1 EKG attestation: Yes I reviewed and interpreted this EKG. EKG shows normal: sinus rhythm Rate: normal Rhythm: NSR [place]/QRS: LAHB/LAFB When compared to previous EKG there are: no significant changes Interpretation: no acute changes S.Onel.Alysha - Anais Situation: Demographics Background: Presenting Complaint Assessment: Vital Signs, Course and respsone to treatment, Patient/Family Expectation Recommendation: Barrier(s) to disposition, Recommendation based on pending studies, treatments, or consults S.B.Alysha Report Given to: Dr. Cole Manzo Repor Time: 21:59
[2018-08-31 19:47] LABS: Basophils # 0.1 K/mcL (0.0-0.2); Eosinophils # 0.1 K/mcL (0.0-0.6); Eosinophils % 1.3 %; Hematocrit 48.1 % (37.5-50.1); Hemoglobin 15.9 g/dL (12.9-16.9); Immature Granulocytes % 1.2 % (0-4); Lymphocytes # 2.9 K/mcL (0.6-4.6); Lymphocytes % 27.1 %; Mean Corpuscular HGB Conc 33.1 g/dL (31.6-35.5); Mean Corpuscular Hemoglobin 30.3 pg (28.0-33.3); Mean Corpuscular Volume 91.8 fL (83.0-100.0); Mean Platelet Volume 10.5 fL (9.4-12.4); Monocytes % 9.3 %; Neutrophils # 6.3 K/mcL (1.6-8.9); Platelet Count 283 K/mcL (140-400); Red Blood Count 5.24 M/mcL (4.19-5.50); Red Cell Distribution Width 11.9 % (11.5-14.5); Segmented Neutrophils % 60.1 %
[2018-08-31 20:07] LABS: Alanine Aminotransferase 192 Units/L (7-52); Albumin 4.1 g/dL (3.5-5.7); Albumin/Globulin Ratio 1.1 (1.1-2.2); Alkaline Phosphatase 100 Units/L (34-104); Aspartate Amino Transferase 89 Units/L (13-39); BUN/Creatinine Ratio 6 (6-26); Bilirubin,Total 0.4 mg/dL (0.3-1.0); Blood Urea Nitrogen 5 mg/dL (6-20); Calcium 9.7 mg/dL (8.6-10.3); Carbon Dioxide 27 mEq/L (23-29); Chloride 103 mEq/L (98-107); Globulin 3.9 g/dL (2.4-3.5); Glucose 91 mg/dL (70-105); Osmolality,Calculated 279 (280-300); Potassium 3.4 mEq/L (3.5-5.1); Sodium 136 mEq/L (136-145); eGFR For Non-African Americans > 60 (> 60)
--- NOTE | 2018-08-31 20:40 | Emergency Department Note ---
Disposition Clinical Impression: Thrombophlebitis, Substance abuse Cellulitis Qualifiers: Site of cellulitis: extremity Site of cellulitis of extremity: upper extremity Laterality: right Qualified Code(s): L03.113 - Cellulitis of right upper limb Disposition: Admitted As Inpatient Condition: Fair General Adult HPI - General Chief complaint: ED Skin/Abscess/Foreign Body Stated complaint: Right arm abscess Time Seen by Provider: 08/31/18 19:02 Source: patient Mode of arrival: ambulatory Limitations: no limitations Nursing Notes Reviewed: Yes Vital Signs Reviewed: Yes - History of Present Illness Pain Scale: 10 - Related Data Home Medications Medication Instructions Recorded Confirmed No Known Home Drugs 08/31/18 08/31/18 Allergies Allergy/AdvReac Type Severity Reaction Status Date / Time Sulfa (Sulfonamide Allergy Hives Verified 08/31/18 17:15 Antibiotics) calamine AdvReac See Verified 08/31/18 17:15 Comments diphenhydramine AdvReac See Verified 08/31/18 17:15 [From Benadryl] Comments hydroxyzine AdvReac See Verified 08/31/18 17:15 Comments trazodone AdvReac See Verified 08/31/18 17:15 Comments Constitutional: Denies: fever Cardiovascular: Reports: chest pain Respiratory: Reports: cough. Denies: dyspnea Gastrointestinal: Denies: abdominal pain, nausea, vomiting Musculoskeletal: Denies: back pain Past Medical History - Past Medical History Medical history: Reports: arthritis, GERD, other Surgical history: Reports: non-contributory Psychiatric history: Reports: bipolar, depression, prior suicide attempt, pre vious psychiatric hospitalization - Social History Smoking Status: Current every day smoker Smokeless Tobacco Status: No Alcohol use: Reports: none Drug use: Reports: marijuana, methamphetamine, IV Drug Use Physical Exam - General Limitations: no limitations General appearance: alert, in no apparent distress Course Vital Signs Temperature 98.1 F 08/31/18 17:12 Pulse Rate 98 08/31/18 17:12 Respiratory Rate 14 08/31/18 17:12 Blood Pressure 132/86 08/31/18 17:12 O2 Sat by Pulse Oximetry 99 08/31/18 17:12 Temperature 98.1 F 08/31/18 19:14 Pulse Rate 92 08/31/18 20:19 Respiratory Rate 20 08/31/18 20:19 Blood Pressure 124/78 08/31/18 20:19 O2 Sat by Pulse Oximetry 100 08/31/18 20:19 Oxygen Delivery Oxygen Delivery Room Air Medical Decision Making - Lab Data Lab results reviewed: Yes I reviewed the patient's lab results. Result diagrams: 08/31/18 19:29 08/31/18 19:29 Lab Results 08/31/18 08/31/18 08/31/18 Range/Units 19:29 19:29 19:29 WBC 10.6 (4.3-11.1) K/mcL RBC 5.24 (4.19-5.50) M/mcL Hgb 15.9 (12.9-16.9) g/dL Hct 48.1 (37.5-50.1) % MCV 91.8 (83.0-100.0) fL MCH 30.3 (28.0-33.3) pg MCHC 33.1 (31.6-35.5) g/dL RDW 11.9 (11.5-14.5) % Plt Count 283 (140-400) K/mcL MPV 10.5 (9.4-12.4) fL Immature Gran % 1.2 (0-4) % Seg Neutrophils % 60.1 % Lymphocytes % 27.1 % Monocytes % 9.3 % Eosinophils % 1.3 % Basophils % 1.0 % Neutrophils # 6.3 (1.6-8.9) K/mcL Lymphocytes # 2.9 (0.6-4.6) K/mcL Monocytes # 1.0 (0.0-1.3) K/mcL Eosinophils # 0.1 (0.0-0.6) K/mcL Basophils # 0.1 (0.0-0.2) K/mcL Sodium 136 (136-145) mEq/L Potassium 3.4 L (3.5-5.1) mEq/L Chloride 103 (98-107) mEq/L Carbon Dioxide 27 (23-29) mEq/L BUN 5 L (6-20) mg/dL Creatinine 0.82 (0.70-1.30) mg/dL Est GFR ( Amer) > 60 (> 60) Est GFR (Non-Af Amer) > 60 (> 60) BUN/Creatinine Ratio 6 (6-26) Glucose 91 (70-105) mg/dL Calculated Osmolality 279 L (280-300) Lactic Acid 1.7 (0.5-2.2) mmol/L Calcium 9.7 (8.6-10.3) mg/dL Total Bilirubin 0.4 (0.3-1.0) mg/dL AST 89 H (13-39) Units/L ALT 192 H (7-52) Units/L Alkaline Phosphatase 100 (34-104) Units/L Troponin I (< 0.04) ng/mL Serum Total Protein 8.0 (6.4-8.9) g/dL Albumin 4.1 (3.5-5.7) g/dL Globulin 3.9 H (2.4-3.5) g/dL Albumin/Globulin Ratio 1.1 (1.1-2.2) 08/31/18 Range/Units 19:29 WBC (4.3-11.1) K/mcL RBC (4.19-5.50) M/mcL Hgb (12.9-16.9) g/dL Hct (37.5-50.1) % MCV (83.0-100.0) fL MCH (28.0-33.3) pg MCHC (31.6-35.5) g/dL RDW (11.5-14.5) % Plt Count (140-400) K/mcL MPV (9.4-12.4) fL Immature Gran % (0-4) % Seg Neutrophils % % Lymphocytes % % Monocytes % % Eosinophils % % Basophils % % Neutrophils # (1.6-8.9) K/mcL Lymphocytes # (0.6-4.6) K/mcL Monocytes # (0.0-1.3) K/mcL Eosinophils # (0.0-0.6) K/mcL Basophils # (0.0-0.2) K/mcL Sodium (136-145) mEq/L Potassium (3.5-5.1) mEq/L Chloride (98-107) mEq/L Carbon Dioxide (23-29) mEq/L BUN (6-20) mg/dL Creatinine (0.70-1.30) mg/dL Est GFR ( Amer) (> 60) Est GFR (Non-Af Amer) (> 60) BUN/Creatinine Ratio (6-26) Glucose (70-105) mg/dL Calculated Osmolality (280-300) Lactic Acid (0.5-2.2) mmol/L Calcium (8.6-10.3) mg/dL Total Bilirubin (0.3-1.0) mg/dL AST (13-39) Units/L ALT (7-52) Units/L Alkaline Phosphatase (34-104) Units/L Troponin I < 0.03 (< 0.04) ng/mL Serum Total Protein (6.4-8.9) g/dL Albumin (3.5-5.7) g/dL Globulin (2.4-3.5) g/dL Albumin/Globulin Ratio (1.1-2.2) - Radiology Data Radiology results reviewed: Yes I reviewed the patient's radiology results. Chest X-Ray 08/31/18 19:14 IMPRESSION: No acute process. D/ / Saul Reyes MD / Saul Reyes MD Interpreting Provider: Saul Reyes MD Upper Extremity CT 08/31/18 19:14 IMPRESSION: 1. Thrombophlebitis of the basilic vein and median cubital vein with adjacent soft tissue stranding and edema most compatible with cellulitis. No organized drainable fluid collection identified to suggest abscess. 2. No acute osseous abnormality identified. D/ / Kayode Machuca MD / Kayode Machuca MD Interpreting Provider: Kayode Machuca MD - EKG Data EKG #1 EKG attestation: Yes I reviewed and interpreted this EKG. EKG results narrative: EKG shows a normal sinus rhythm with ventricular rate of 88. No ST segment e levation or depression. No arrhythmia or ectopy. Normal EKG. Attestation Statement - Attestation Attestation: I, Rohan Edwards MD, personally evaluated this patient and discussed their management with the resident physician. I reviewed the resident's note and agree with the documented findings, medical decision making, and plan of care. 47-year-old male presents to the emergency department with a complaint of an abscess in the right antecubital fossa extending into the right upper arm which started about 3 days prior to arrival. No prior history of similar problems. He does admit to IV drug use and injecting in this area. He denies any fever. Patient is not diabetic. On examination patient is a well-developed well-nourished well-appearing male in no acute distress. He is alert and oriented 3. There is no cyanosis or diaphoresis. Breath sounds are clear and equal bilaterally. Heart regular rate and rhythm. Abdomen soft and nontender with normal bowel sounds. There is a large area of erythema to the right antecubital fossa extended up onto the anterior and medial aspect of the right upper arm about mid upper arm. This area is very indurated and markedly tender. No definite fluctuance palpable. No axillary lymphadenopathy noted. Labs reviewed. EKG normal. Chest x-ray negative. CT of the arm showed cellulitis and thrombophlebitis with no drainable fluid collection. The hospitalist, Dr. Galvan, was consulted and accepted admission of the patient.
[2018-08-31] MEDS ORDERED: Acetaminophen 325 MG TABLET PO PRN (23:05)
[2018-08-31] MEDS ORDERED: Naloxone 0.4 MG/ML INJ IVP PRN (23:05)
[2018-08-31] MEDS ORDERED: Ketorolac 30 MG/ML VIAL IVP PRN (23:05)
--- NOTE | 2018-08-31 23:16 | Internal Med History&Physical ---
Date of Encounter: 08/31/18 Time of Encounter: 23:16 Internal Medicine - H&P: HPI Chief complaint: forearm pain Admitted From: Home Plans for Post Hospital Care: Home History of present illness: Corey Parekh is a 47-year-old man with substance use disorder who comes in with a complaint of right forearm pain and swelling that started 4-5 days ago after injecting crystal meth into his arm. The pain, erythema and swelling progressed until today which prompted him to seek medical attention. He denies having fever or chills however but exquisite pain causing functional limitation. The ER he was seen clinically and hemodynamically stable. CT scan was done which showed thrombophlebitis of the basilic vein and median cubital vein with adjacent soft tissue stranding and edema compatible with cellulitis but no organized drainable fluid collection identified to suggest abscess. Blood cultures were obtained and he was started on IV vancomycin. He is admitted for further observation. Past Med Surg Social Fam HX - Past Medical History Medical history: arthritis, GERD, other Additional medical history: club feet Psychiatric history: bipolar, depression, prior suicide attempt, previous psychiatric hospitalization - Past Surgical History Surgical History: non-contributory Additional surgical history: feet. implant in back - Social History Smoking Status: Current every day smoker Smokeless Tobacco Status: No Alcohol use: none Drug use: marijuana, methamphetamine, IV Drug Use - Family History Mother Adopted: No Family Member Ethnicity: Non- Living Status: Hx Family Cardiac Disorders: Yes (CHF) Hx Family Respiratory Disorders: Yes (COPD) Hx Family Cancer: No Hx Family GI Disorders: Yes (unknown) Hx Family Endocrine Disorder: Yes (Type 1 DM) Hx Family Neuromuscular Disorders: No Hx Family Neurologic Disorders: No Hx Family HEENT Disorders: No Hx Family Autoimmune Disorders: No Internal Medicine - H&P: Meds No Known Home Drugs 08/31/18 [History] Allergy/AdvReac Type Severity Reaction Status Date / Time Sulfa (Sulfonamide Allergy Hives Verified 08/31/18 17:15 Antibiotics) calamine AdvReac See Verified 08/31/18 17:15 Comments diphenhydramine AdvReac See Verified 08/31/18 17:15 [From Benadryl] Comments hydroxyzine AdvReac See Verified 08/31/18 17:15 Comments trazodone AdvReac See Verified 08/31/18 17:15 Comments All Systems PM: A 10-system review of systems was performed and is negative for pertinent findings except as documented above in the HPI. Family history reviewed and found noncontributory. - Constitutional Vitals: Temp Pulse Resp BP Pulse Ox 98.1 F 92 20 124/78 100 08/31/18 19:14 08/31/18 20:19 08/31/18 20:19 08/31/18 20:19 08/31/18 20:19 Exam: Vitals: Reviewed General: Well developed white male lying comfortably in bed in no acute distress. Skin: Warm and supple. HEENT: Moist mucous membranes. No conjunctivae pallor. Neck: No lymphadenopathy. No JVD. No carotid bruits. No palpable thyroid. Chest: Normal thoracic expansion. Normal breath sounds. Clear to auscultation. Heart: Normal S1 & S2; rhythmic. No rubs or murmurs. Abdomen: Non-distended, soft and non-tender to palpation. No peritoneal reaction. Liver is normal in size. Spleen is not palpable. Extremities: Right forearm with erythema, warmth and diffuse induration on the medial aspect around the elbow area without skin dimpling but notably tender to touch and slightly raised borders. No palpable cords. Neurological: Awake, alert and oriented to person, place and time. No focal deficits. Psych: Affect appropriate. Internal Med - H&P Results - Labs CBC & Chem 7: 08/31/18 19:29 08/31/18 19:29 Labs: Short CBC 08/31/18 Range/Units 19:29 WBC 10.6 (4.3-11.1) K/mcL Hgb 15.9 (12.9-16.9) g/dL Hct 48.1 (37.5-50.1) % Plt Count 283 (140-400) K/mcL Neutrophils # 6.3 (1.6-8.9) K/mcL BMP 08/31/18 19:29 Sodium 136 Potassium 3.4 L Chloride 103 Carbon Dioxide 27 BUN 5 L Creatinine 0.82 Glucose 91 Calcium 9.7 Cardiac Enzymes 08/31/18 Range/Units 19:29 Troponin I < 0.03 (< 0.04) ng/mL Liver Function 08/31/18 Range/Units 19:29 Total Bilirubin 0.4 (0.3-1.0) mg/dL AST 89 H (13-39) Units/L ALT 192 H (7-52) Units/L Alkaline Phosphatase 100 (34-104) Units/L Albumin 4.1 (3.5-5.7) g/dL - Impressions ITS Impressions Chest X-Ray 08/31/18 19:14 IMPRESSION: No acute process. D/ / Saul Reyes MD / Saul Reyes MD Interpreting Provider: Saul Reyes MD Upper Extremity CT 08/31/18 19:14 IMPRESSION: 1. Thrombophlebitis of the basilic vein and median cubital vein with adjacent soft tissue stranding and edema most compatible with cellulitis. No organized drainable fluid collection identified to suggest abscess. 2. No acute osseous abnormality identified. D/ / Kayode Machuca MD / Kayode Machuca MD Interpreting Provider: Kayode Machuca MD - Assessment and plan (1) Cellulitis Current Visit: Yes Status: Acute Assessment and plan: In the high likelihood of skin jo we will continue IV vancomycin empirically as we await blood cultures. Anti-inflammatory and pain control as needed. Arm elevation at all times. Qualifiers: Site of cellulitis: extremity Site of cellulitis of extremity: upper extremity Laterality: right Qualified Code(s): L03.113 - Cellulitis of right upper limb (2) Thrombophlebitis Current Visit: Yes Status: Acute Assessment and plan: Professional and there is no indication for anticoagulant therapy. He should have warm compresses applied, pain control and anti-inflammatories as needed. (3) Substance abuse Current Visit: Yes Status: Acute Assessment and plan: Will benefit from social work faculty member assistance to provide resources. He should be screened for hepatitis and HIV as an outpatient. (4) Mood disorder Current Visit: Yes Status: Acute Assessment and plan: Previously on Abilify but no longer. Monitor. - Time Spent With Patient Total time spent is greater than 50% in coordination of care (as documented) at patient's floor/unit and/or counseling patient: Greater than 35 minutes
[2018-09-01] MEDS: Ringers Solution, Lactated 1,000 ML IVC SCH ×2 (01:30→06:51)
[2018-09-01] MEDS: *HR* OxyCODONE Immed Rel 5 MG TABLET PO PRN ×3 (01:42→17:22)
[2018-09-01] MEDS: *HR* Heparin 5,000 UNIT/ML VIAL SQ SCH ×3 (04:04→17:22)
[2018-09-01] MEDS: traMADol 50 MG TABLET PO PRN ×3 (05:40→20:43)
[2018-09-01 05:42] LABS: Basophils # 0.1 K/mcL (0.0-0.2); Basophils % 0.8 %; Eosinophils # 0.2 K/mcL (0.0-0.6); Eosinophils % 1.9 %; Hematocrit 42.8 % (37.5-50.1); Immature Granulocytes % 1.4 % (0-4); Lymphocytes # 2.9 K/mcL (0.6-4.6); Lymphocytes % 35.1 %; Mean Corpuscular HGB Conc 32.7 g/dL (31.6-35.5); Mean Corpuscular Hemoglobin 29.8 pg (28.0-33.3); Mean Corpuscular Volume 91.1 fL (83.0-100.0); Mean Platelet Volume 10.8 fL (9.4-12.4); Monocytes # 0.9 K/mcL (0.0-1.3); Monocytes % 10.8 %; Neutrophils # 4.2 K/mcL (1.6-8.9); Platelet Count 228 K/mcL (140-400); Red Cell Distribution Width 11.9 % (11.5-14.5)
[2018-09-01 05:49] LABS: Prothrombin Time 11.5 Seconds (9.4-12.1)
[2018-09-01 05:52] LABS: Activated Partial Thrombo Time 27.5 Seconds (26.0-36.0)
[2018-09-01 06:04] LABS: Alanine Aminotransferase 132 Units/L (7-52); Albumin 2.9 g/dL (3.5-5.7); Alkaline Phosphatase 73 Units/L (34-104); Aspartate Amino Transferase 61 Units/L (13-39); BUN/Creatinine Ratio 5 (6-26); Bilirubin,Direct 0.1 mg/dL (0.0-0.2); Bilirubin,Indirect 0.2 mg/dL (0.0-1.2); Bilirubin,Total 0.3 mg/dL (0.3-1.0); Blood Urea Nitrogen 4 mg/dL (6-20); Calcium 8.8 mg/dL (8.6-10.3); Carbon Dioxide 23 mEq/L (23-29); Chloride 109 mEq/L (98-107); Globulin 2.9 g/dL (2.4-3.5); Glucose 142 mg/dL (70-105); Osmolality,Calculated 281 (280-300); Potassium 3.7 mEq/L (3.5-5.1); Sodium 136 mEq/L (136-145); Total Protein 5.8 g/dL (6.4-8.9); eGFR For Non-African Americans > 60 (> 60)
--- NOTE | 2018-09-01 10:21 | Internal Med Progress Note ---
<Shu Rodriguez - Last Filed: 09/01/18 10:18> Hospitalist Progress Note - Encounter Date of Encounter: 09/01/18 Time of Encounter: 08:00 - Subjective Interval History: Mr. Parekh was seen at bedside this morning. He was comfortable in bed but noted that he continues to have pain in the right antecubital fossa. He notes that about 5 days ago he injected crystal meth in his arm but yesterday the pain worsened prompting him to seek medical therapy. This morning apart from the pain he denies any other symptoms. He denies fever, chills, nausea, emesis, shortness of breath, chest pain, abdominal pain. - Exam Vitals: Temp Pulse Resp BP Pulse Ox 98.4 F 71 16 113/68 97 09/01/18 06:58 09/01/18 06:58 09/01/18 06:58 09/01/18 06:58 09/01/18 06:58 Exam: General: no acute distress, comfortable in bed HEENT: Head atraumatic, normocephalic, moist mucus membrane Neck: no tracheal deviation Cardiovascualr: Regular rhythm, no pedal edema, no murmurs or gallops Lungs: Clear to auscultation at all lung rivas Abdomen: Soft nontender, nondistended positive bowel sounds Skin: warm and dry, absent rash, absent open wounds and nodules MSK: right medial ventral aspect of the antecubital area is mildly erythematous with area of induration and tender, bilateral lower extremities without any edema Neuro: alert and oriented x 3 Psych: Thought content congruent - Assessment and Plan (1) Cellulitis Current Visit: Yes Status: Acute Assessment and Plan: Complaining of pain localized in the right antecubital fossa. CT of the right arm shows thrombophlebitis of the basilic vein in medial cubital vein with soft tissue stranding and edema. -Blood cultures pending -Continue IV vancomycin empirically -Continue to ice and elevate the arm -Continue pain control with ibuprofen and ketorolac -Avoid acetaminophen given elevated liver enzymes (2) Substance abuse Current Visit: Yes Status: Acute Assessment and Plan: History of substance abuse and currently uses methamphetamine. His AST and ALT appear to be mildly elevated. -We will recheck CMP in the morning -Pending viral hepatic panel (3) Thrombophlebitis Current Visit: Yes Status: Acute Assessment and Plan: Superficial area thrombophlebitis noted on CT imaging. -Continue pain control with ketorolac or ibuprofen -Continue to ice and elevate the arm (4) Mood disorder Current Visit: Yes Status: Acute Assessment and Plan: Past medical history of bipolar and depression disorder. He is not on any mood stabilizers at home. DVT Prophylaxis: SubQ heparin - Time Spent with Patient Total time spent is greater than 50% in coordination of care (as documented) at patient's floor/unit and/or counseling patient: Internal Medicine: Result - Labs CBC & Chem 7: 09/01/18 05:06 09/01/18 05:06 Labs: Short CBC 08/31/18 09/01/18 Range/Units 19:29 05:06 WBC 10.6 8.3 (4.3-11.1) K/mcL Hgb 15.9 14.0 D (12.9-16.9) g/dL Hct 48.1 42.8 (37.5-50.1) % Plt Count 283 228 (140-400) K/mcL Neutrophils # 6.3 4.2 (1.6-8.9) K/mcL BMP 08/31/18 09/01/18 19:29 05:06 Sodium 136 136 Potassium 3.4 L 3.7 Chloride 103 109 H Carbon Dioxide 27 23 BUN 5 L 4 L Creatinine 0.82 0.78 Glucose 91 142 H Calcium 9.7 8.8 Cardiac Enzymes 08/31/18 Range/Units 19:29 Troponin I < 0.03 (< 0.04) ng/mL Liver Function 08/31/18 09/01/18 Range/Units 19:29 05:06 Total Bilirubin 0.4 0.3 (0.3-1.0) mg/dL Direct Bilirubin 0.1 (0.0-0.2) mg/dL AST 89 H 61 H (13-39) Units/L ALT 192 H 132 H (7-52) Units/L Alkaline Phosphatase 100 73 (34-104) Units/L Albumin 4.1 2.9 L (3.5-5.7) g/dL - ABG Interpretation ABG results: PT/INR, D-dimer PT 11.5 Seconds (9.4-12.1) 09/01/18 05:06 - Impressions Impressions Chest X-Ray 08/31/18 19:14 IMPRESSION: No acute process. D/ / Saul Reyes MD / Saul Reyes MD Interpreting Provider: Saul Reyes MD Upper Extremity CT 08/31/18 19:14 IMPRESSION: 1. Thrombophlebitis of the basilic vein and median cubital vein with adjacent soft tissue stranding and edema most compatible with cellulitis. No organized drainable fluid collection identified to suggest abscess. 2. No acute osseous abnormality identified. D/ / Kayode Machcua MD / Kayode Machuca MD Interpreting Provider: Kayode Machuca MD Consult Discharge Plan - Plan Referrals: Ariel Pantoja MD [Primary Care Provider] - <Kaveh Lei - Last Filed: 09/01/18 14:11> Hospitalist Progress Note - Encounter Date of Encounter: 09/01/18 - Exam Vitals: Temp Pulse Resp BP Pulse Ox 98.2 F 72 16 118/77 98 09/01/18 12:00 09/01/18 12:00 09/01/18 12:00 09/01/18 12:00 09/01/18 12:00 - Assessment and Plan (1) Substance abuse Current Visit: Yes Status: Acute (2) Cellulitis Current Visit: Yes Status: Acute (3) Thrombophlebitis Current Visit: Yes Status: Acute (4) Mood disorder Current Visit: Yes Status: Acute - Time Spent with Patient Total time spent is greater than 50% in coordination of care (as documented) at patient's floor/unit and/or counseling patient: Internal Medicine: Result - Labs CBC & Chem 7: 09/01/18 05:06 09/01/18 05:06 Labs: Short CBC 08/31/18 09/01/18 Range/Units 19:29 05:06 WBC 10.6 8.3 (4.3-11.1) K/mcL Hgb 15.9 14.0 D (12.9-16.9) g/dL Hct 48.1 42.8 (37.5-50.1) % Plt Count 283 228 (140-400) K/mcL Neutrophils # 6.3 4.2 (1.6-8.9) K/mcL BMP 08/31/18 09/01/18 19:29 05:06 Sodium 136 136 Potassium 3.4 L 3.7 Chloride 103 109 H Carbon Dioxide 27 23 BUN 5 L 4 L Creatinine 0.82 0.78 Glucose 91 142 H Calcium 9.7 8.8 Cardiac Enzymes 08/31/18 Range/Units 19:29 Troponin I < 0.03 (< 0.04) ng/mL Liver Function 08/31/18 09/01/18 Range/Units 19:29 05:06 Total Bilirubin 0.4 0.3 (0.3-1.0) mg/dL Direct Bilirubin 0.1 (0.0-0.2) mg/dL AST 89 H 61 H (13-39) Units/L ALT 192 H 132 H (7-52) Units/L Alkaline Phosphatase 100 73 (34-104) Units/L Albumin 4.1 2.9 L (3.5-5.7) g/dL - ABG Interpretation ABG results: PT/INR, D-dimer PT 11.5 Seconds (9.4-12.1) 09/01/18 05:06 - Impressions Impressions Chest X-Ray 08/31/18 19:14 IMPRESSION: No acute process. D/ / Saul Reyes MD / Saul Reyes MD Interpreting Provider: Saul Reyes MD Upper Extremity CT 08/31/18 19:14 IMPRESSION: 1. Thrombophlebitis of the basilic vein and median cubital vein with adjacent soft tissue stranding and edema most compatible with cellulitis. No organized drainable fluid collection identified to suggest abscess. 2. No acute osseous abnormality identified. D/ / Kayode Machuca MD / Kayode Machuca MD Interpreting Provider: Kayode Machuca MD - Attending Attestation I have examined this patient and my medical decision-making was reviewed with the Resident Physician. I agree with the documented findings, disposition and treatment plan as described except to the extent set forth below. Patient had no acute events. On exam there is extensive erythema on right forearm. CT reviewed, no abscess. Continue Vancomycin IV. Will continue to monitor to see if patient can be de escalated to PO antibiotics in 1-2 days. ___ <Shu Rodriguez - Last Filed: 09/01/18 10:18> (1) Cellulitis Qualifiers: Site of cellulitis: extremity Site of cellulitis of extremity: upper extremity Laterality: right Qualified Code(s): L03.113 - Cellulitis of right upper limb <Kaveh Lei - Last Filed: 09/01/18 14:11> (2) Cellulitis Qualifiers: Site of cellulitis: extremity Site of cellulitis of extremity: upper extremity Laterality: right Qualified Code(s): L03.113 - Cellulitis of right upper limb
[2018-09-01] MEDS ORDERED: Ibuprofen 400 MG TABLET PO PRN (10:39)
[2018-09-01 12:49] LABS: Hepatitis B Surface Antigen Nonreactive (Nonreactive)
[2018-09-01 13:18] LABS: Hepatitis B Core IgM Nonreactive (Nonreactive); Hepatitis C Virus Antibody Nonreactive (Nonreactive)
[2018-09-01 14:30] LABS: Hepatitis A Antibody IgM Reactive (Nonreactive)
[2018-09-02] MEDS: *HR* OxyCODONE Immed Rel 5 MG TABLET PO PRN ×2 (02:46→08:56)
[2018-09-02] MEDS: *HR* Heparin 5,000 UNIT/ML VIAL SQ SCH ×3 (02:47→17:57)
[2018-09-02] MEDS: traMADol 50 MG TABLET PO PRN ×2 (05:58→17:17)
[2018-09-02 08:25] LABS: Basophils # 0.1 K/mcL (0.0-0.2); Basophils % 0.9 %; Eosinophils # 0.2 K/mcL (0.0-0.6); Eosinophils % 2.1 %; Hematocrit 39.6 % (37.5-50.1); Hemoglobin 13.4 g/dL (12.9-16.9); Immature Granulocytes % 1.4 % (0-4); Lymphocytes # 2.7 K/mcL (0.6-4.6); Lymphocytes % 35.8 %; Mean Corpuscular HGB Conc 33.8 g/dL (31.6-35.5); Mean Corpuscular Hemoglobin 30.2 pg (28.0-33.3); Mean Corpuscular Volume 89.4 fL (83.0-100.0); Mean Platelet Volume 10.5 fL (9.4-12.4); Monocytes # 0.8 K/mcL (0.0-1.3); Monocytes % 10.1 %; Neutrophils # 3.8 K/mcL (1.6-8.9); Platelet Count 214 K/mcL (140-400); Red Blood Count 4.43 M/mcL (4.19-5.50); Red Cell Distribution Width 11.8 % (11.5-14.5); Segmented Neutrophils % 49.7 %
[2018-09-02 08:48] LABS: Alanine Aminotransferase 136 Units/L (7-52); Albumin 2.9 g/dL (3.5-5.7); Alkaline Phosphatase 70 Units/L (34-104); Aspartate Amino Transferase 74 Units/L (13-39); BUN/Creatinine Ratio 8 (6-26); Bilirubin,Total 0.3 mg/dL (0.3-1.0); Blood Urea Nitrogen 6 mg/dL (6-20); Calcium 8.8 mg/dL (8.6-10.3); Carbon Dioxide 26 mEq/L (23-29); Chloride 104 mEq/L (98-107); Globulin 2.9 g/dL (2.4-3.5); Glucose 125 mg/dL (70-105); Osmolality,Calculated 279 (280-300); Potassium 3.7 mEq/L (3.5-5.1); Sodium 135 mEq/L (136-145); Total Protein 5.8 g/dL (6.4-8.9); eGFR For Non-African Americans > 60 (> 60)
[2018-09-02] MEDS ORDERED: Aminoglycoside Consult 1 EACH MC ONE (09:35)
--- NOTE | 2018-09-02 09:36 | Internal Med Progress Note ---
<Shu Rodriguez - Last Filed: 09/02/18 15:13> Hospitalist Progress Note - Encounter Date of Encounter: 09/02/18 Time of Encounter: 08:15 - Subjective Interval History: Mr. Parekh was seen at bedside this morning. He remained afebrile and normotensive overnight. He was comfortable in bed but noted that he continues to have pain in the right antecubital fossa. This morning he continues to complain of right arm pain that worsens with movement. He denies fever, chills, nausea, emesis, shortness of breath, chest pain, abdominal pain. - Exam Vitals: Temp Pulse Resp BP Pulse Ox 97.8 F 72 16 112/72 97 09/02/18 06:49 09/02/18 06:49 09/02/18 06:49 09/02/18 06:49 09/02/18 06:49 Exam: General: no acute distress, comfortable in bed HEENT: Head atraumatic, normocephalic, moist mucus membrane Neck: no tracheal deviation Cardiovascualr: Regular rhythm, no pedal edema, no murmurs or gallops Lungs: Clear to auscultation at all lung rivas Abdomen: Soft nontender, nondistended positive bowel sounds Skin: warm and dry, absent rash, absent open wounds and nodules MSK: right medial ventral aspect of the antecubital area is mildly erythematous with area of induration and tender, bilateral lower extremities without any edema Neuro: alert and oriented x 3 Psych: Thought content congruent - Assessment and Plan (1) Cellulitis Current Visit: Yes Status: Acute Assessment and Plan: Complaining of pain localized in the right antecubital fossa. CT of the right arm shows thrombophlebitis of the basilic vein in medial cubital vein with soft tissue stranding and edema. -Blood cultures pending -Continue IV vancomycin empirically, day 3 -Continue to use warm compression and elevate the arm -Continue pain control with naproxen -Avoid acetaminophen given elevated liver enzymes (2) Substance abuse Current Visit: Yes Status: Acute Assessment and Plan: History of substance abuse and currently uses methamphetamine. His AST and ALT appear to be mildly elevated. -We will recheck CMP in the morning -Positive for hepatitis A (3) Thrombophlebitis Current Visit: Yes Status: Acute Assessment and Plan: Superficial area thrombophlebitis noted on CT imaging. -Continue NSAIDS -Continue to warm compression and elevate the arm (4) Mood disorder Current Visit: Yes Status: Acute Assessment and Plan: Past medical history of bipolar and depression disorder. He is not on any mood stabilizers at home. (5) Hepatitis A Current Visit: Yes Status: Chronic Assessment and Plan: Not acute. His liver enzymes were elevated during this admission. This morning ALT was 136 and AST was 74. His hepatitis panel was positive for hepatitis A. He noted a few months ago he tested positive for a hepatitis but was unsure and was not symptomatic at that time. He is denying diarrhea and is not complaining of any abdominal symptoms. -Informed him of modality of transmission -Continue to monitor DVT Prophylaxis: SubQ Heparin - Time Spent with Patient Total time spent is greater than 50% in coordination of care (as documented) at patient's floor/unit and/or counseling patient: Internal Medicine: Result - Labs CBC & Chem 7: 09/02/18 07:50 09/02/18 07:50 Labs: Short CBC 09/02/18 Range/Units 07:50 WBC 7.6 (4.3-11.1) K/mcL Hgb 13.4 (12.9-16.9) g/dL Hct 39.6 (37.5-50.1) % Plt Count 214 (140-400) K/mcL Neutrophils # 3.8 (1.6-8.9) K/mcL BMP 09/02/18 07:50 Sodium 135 L Potassium 3.7 Chloride 104 Carbon Dioxide 26 BUN 6 Creatinine 0.78 Glucose 125 H Calcium 8.8 Liver Function 09/02/18 Range/Units 07:50 Total Bilirubin 0.3 (0.3-1.0) mg/dL AST 74 H (13-39) Units/L ALT 136 H (7-52) Units/L Alkaline Phosphatase 70 (34-104) Units/L Albumin 2.9 L (3.5-5.7) g/dL - ABG Interpretation ABG results: PT/INR, D-dimer PT 11.5 Seconds (9.4-12.1) 09/01/18 05:06 Consult Discharge Plan - Plan Referrals: Ariel Pantoja MD [Primary Care Provider] - <Kaveh Lei - Last Filed: 09/02/18 15:28> Hospitalist Progress Note - Encounter Date of Encounter: 09/02/18 - Exam Vitals: Temp Pulse Resp BP Pulse Ox 97.9 F 78 16 106/63 95 09/02/18 14:45 09/02/18 14:45 09/02/18 14:45 09/02/18 14:45 09/02/18 14:45 - Assessment and Plan (1) Substance abuse Current Visit: Yes Status: Acute (2) Cellulitis Current Visit: Yes Status: Acute (3) Thrombophlebitis Current Visit: Yes Status: Acute (4) Mood disorder Current Visit: Yes Status: Acute (5) Hepatitis A Current Visit: Yes Status: Chronic - Time Spent with Patient Total time spent is greater than 50% in coordination of care (as documented) at patient's floor/unit and/or counseling patient: Internal Medicine: Result - Labs CBC & Chem 7: 09/02/18 07:50 09/02/18 07:50 Labs: Short CBC 09/02/18 Range/Units 07:50 WBC 7.6 (4.3-11.1) K/mcL Hgb 13.4 (12.9-16.9) g/dL Hct 39.6 (37.5-50.1) % Plt Count 214 (140-400) K/mcL Neutrophils # 3.8 (1.6-8.9) K/mcL BMP 09/02/18 07:50 Sodium 135 L Potassium 3.7 Chloride 104 Carbon Dioxide 26 BUN 6 Creatinine 0.78 Glucose 125 H Calcium 8.8 Liver Function 09/02/18 Range/Units 07:50 Total Bilirubin 0.3 (0.3-1.0) mg/dL AST 74 H (13-39) Units/L ALT 136 H (7-52) Units/L Alkaline Phosphatase 70 (34-104) Units/L Albumin 2.9 L (3.5-5.7) g/dL - ABG Interpretation ABG results: PT/INR, D-dimer PT 11.5 Seconds (9.4-12.1) 09/01/18 05:06 - Attending Attestation I examined this patient and my medical decision-making was reviewed with the Resident Physician. I agree with the documented findings, disposition and tr eatment plan as described except to the extent set forth below. <Shu Rodriguez - Last Filed: 09/02/18 15:13> (1) Cellulitis Qualifiers: Site of cellulitis: extremity Site of cellulitis of extremity: upper extremity Laterality: right Qualified Code(s): L03.113 - Cellulitis of right upper limb <Kaveh Lei - Last Filed: 09/02/18 15:28> (2) Cellulitis Qualifiers: Site of cellulitis: extremity Site of cellulitis of extremity: upper extremity Laterality: right Qualified Code(s): L03.113 - Cellulitis of right upper limb
--- NOTE | 2018-09-02 15:59 | Electrocardiograph Report ---
[address] [address] Test Date: 2018-08-31 Pat Name: Corey Parekh Department: EXAM7 Room: 3A Gender: M [employer]: : [id number] Requested By: Hayden Fontenot Order Number: [id number] Reading MD: Barney Beach Measurements Intervals [place] Rate: 88 P: 64 PA: 141 QRS: 14 QRSD: 82 T: 45 QT: 337 QTc: 408 Interpretive Statements Sinus rhythm Electronically Signed On 09-02-2018 15:57:47 EST by Barney Beach
[2018-09-03] MEDS: *HR* Heparin 5,000 UNIT/ML VIAL SQ SCH ×3 (03:04→17:50)
[2018-09-03] MEDS: traMADol 50 MG TABLET PO PRN ×2 (03:04→19:45)
[2018-09-03 10:01] LABS: Basophils % 0.9 %; Eosinophils # 0.1 K/mcL (0.0-0.6); Eosinophils % 1.9 %; Hematocrit 42.2 % (37.5-50.1); Hemoglobin 13.9 g/dL (12.9-16.9); Immature Granulocytes % 1.5 % (0-4); Lymphocytes # 0.7 K/mcL (0.6-4.6); Lymphocytes % 14.1 %; Mean Corpuscular HGB Conc 32.9 g/dL (31.6-35.5); Mean Corpuscular Hemoglobin 30.2 pg (28.0-33.3); Mean Corpuscular Volume 91.7 fL (83.0-100.0); Mean Platelet Volume 10.7 fL (9.4-12.4); Monocytes # 0.5 K/mcL (0.0-1.3); Monocytes % 10.7 %; Neutrophils # 3.3 K/mcL (1.6-8.9); Platelet Count 199 K/mcL (140-400); Red Cell Distribution Width 11.8 % (11.5-14.5); Segmented Neutrophils % 70.9 %
[2018-09-03 10:21] LABS: Alanine Aminotransferase 196 Units/L (7-52); Albumin 2.9 g/dL (3.5-5.7); Alkaline Phosphatase 83 Units/L (34-104); Aspartate Amino Transferase 138 Units/L (13-39); BUN/Creatinine Ratio 7 (6-26); Bilirubin,Total 0.4 mg/dL (0.3-1.0); Blood Urea Nitrogen 7 mg/dL (6-20); Carbon Dioxide 32 mEq/L (23-29); Chloride 100 mEq/L (98-107); Glucose 208 mg/dL (70-105); Osmolality,Calculated 282 (280-300); Potassium 4.2 mEq/L (3.5-5.1); Sodium 134 mEq/L (136-145); Total Protein 5.9 g/dL (6.4-8.9); eGFR For Non-African Americans > 60 (> 60)
--- NOTE | 2018-09-03 11:54 | Discharge Summary ---
<Shu Rodriguez - Last Filed: 09/03/18 11:52> - NOTES TO OUTPATIENT PROVIDER Notes to Outpatient Provider: Cervical presented to the ED complaining of right arm pain. Recently injected himself with crystal meth. CT of the arm in the ED showed thrombophlebitis as well as cellulitis. He was treated with empiric an tibiotic regimen will be discharged with 3 additional days of doxycycline to complete 7 days course. During his admission he was also noted to have elevated LFTs. He has a GI follow-up outpatient but needs his LFTs reevaluated in the next few days. Orders not resulted at time of discharge: Pending orders 08/31/18 19:29 Culture,Blood [BC] Stat Date of Encounter: 09/03/18 Time of Encounter: 08:15 - Discharge Diagnosis (1) Cellulitis Priority: Primary Status: Acute Qualifiers: Site of cellulitis: extremity Site of cellulitis of extremity: upper extremity Laterality: right Qualified Code(s): L03.113 - Cellulitis of right upper limb (2) Thrombophlebitis Priority: Secondary Status: Acute (3) Substance abuse Priority: Secondary Status: Acute (4) Mood disorder Priority: Secondary Status: Acute (5) Hepatitis A Priority: Secondary Status: Chronic Qualifiers: Hepatic coma status: without hepatic coma Qualified Code(s): B15.9 - Hepatitis A without hepatic coma Hospital course: Mr. Parekh is a 47-year-old male with past medical history of substance use disorder. Noted to the ED on 08/31/18 complaining of right arm pain as well as swelling and ongoing for 5 days after he injected himself with crystal meth. In the ED he had a CT of the arm which showed thrombophlebitis of the basilic vein and median cubital nerve. There was also concern for cellulitis. Blood cultures were obtained but have to show any growth. He was started on IV vancomycin for cellulitis. Received when necessary pain medication and was urged to use warm compresses and elevate his arm. This morning his erythema is resolved and the induration has decreased in size. Also during his admission he was noted to have elevated AST and ALT. Viral hepatitis panel was ordered and it was positive for hepatitis A he noted he was diagnosed with hepatitis A a few months ago and has no symptoms such as diarrhea or abdominal pain. Because his LFTs continue to remain elevated and need to be follow-up outpatient. He has a scheduled GI follow-up on discharge. Additionally he needs repeat and his LFTs in the next few days and the results to be followed up with PCP. - Time Spent with Patient Total time spent providing and/or coordinating discharge services: - Discharge Medications Prescriptions: Doxycycline 100 mg PO BID 3 Days #6 capsule Naproxen 500 mg PO PRN PRN 5 Days #10 tablet PRN Reason: Analgesia Home Medications: Doxycycline 100 mg PO BID 3 Days #6 capsule 09/03/18 [Rx] Naproxen 500 mg PO PRN PRN 5 Days #10 tablet 09/03/18 [Rx] Allergies/Adverse Reactions: Allergy/AdvReac Type Severity Reaction Status Date / Time Sulfa (Sulfonamide Allergy Hives Verified 08/31/18 17:15 Antibiotics) calamine AdvReac See Verified 08/31/18 17:15 Comments diphenhydramine AdvReac See Verified 08/31/18 17:15 [From Benadryl] Comments hydroxyzine AdvReac See Verified 08/31/18 17:15 Comments trazodone AdvReac See Verified 08/31/18 17:15 Comments Date of admission: 09/02/18 17:42 Primary care physician: Ariel Pantoja MD Discharging clinician: Shu Rodriguez Anticipated date of discharge: 09/03/18 - Constitutional Vitals: Temp Pulse Resp BP Pulse Ox 98.2 F 76 14 101/63 96 09/03/18 07:22 09/03/18 07:22 09/03/18 07:22 09/03/18 07:22 09/03/18 07:22 General appearance: Present: A&O X 3, no acute distress Exam: General: no acute distress, comfortable in bed HEENT: Head atraumatic, normocephalic, moist mucus membrane Neck: no tracheal deviation Cardiovascualr: Regular rhythm, no pedal edema, no murmurs or gallops Lungs: Clear to auscultation at all lung rivas Abdomen: Soft nontender, nondistended positive bowel sounds Skin: warm and dry, absent rash, absent open wounds and nodules MSK: right medial ventral aspect of the antecubital area is mildly erythematous with area of induration and tender, bilateral lower extremities without any edema Neuro: alert and oriented x 3 Psych: Thought content congruent - Head Head exam: Present: atraumatic, normocephalic - Eye Eye exam: Present: EOMI, sclera anicteric - ENT ENT exam: Present: mucous membranes moist - Respiratory Respiratory exam: Present: CTAB. Absent: rhonchi, stridor, wheezes - Cardiovascular Cardiovascular exam: Present: RRR, +S1, +S2. Absent: clicks - GI/Abdominal GI/Abdominal exam: Present: normal bowel sounds, soft. Absent: firm - Extremities Exam Extremities exam: Absent: pedal edema, tenderness, warm - Neurological Exam Neurological exam: Present: alert - Psychiatric Psychiatric exam: Present: normal affect, normal mood - Skin Skin exam: Present: dry, intact (right antecubital fossa is indurated) - Patient Status Disposition: Home, Self-Care Condition: Fair Overall status at discharge: patient is progressing back to baseline - Discharge Instructions Follow Up With: Abraham Ku MD [Partnered Physician] - (Web-requested, the office will call the patient to schedule a follow up appointment. ) Ariel Pantoja MD [Primary Care Provider] - 09/10/18 2:15 pm (Follow up as scheduled. ) <Kaveh Lei - Last Filed: 09/03/18 19:29> Orders not resulted at time of discharge: Pending orders 08/31/18 19:29 Culture,Blood [BC] Stat Date of Encounter: 09/03/18 - Discharge Diagnosis (1) Substance abuse Status: Acute (2) Cellulitis Status: Acute Qualifiers: Site of cellulitis: extremity Site of cellulitis of extremity: upper extremity Laterality: right Qualified Code(s): L03.113 - Cellulitis of right upper limb (3) Thrombophlebitis Status: Acute (4) Mood disorder Status: Acute (5) Hepatitis A Status: Chronic Qualifiers: Hepatic coma status: without hepatic coma Qualified Code(s): B15.9 - Hepati tis A without hepatic coma Hospital course: Mr. Parekh is a 47 year old male - Time Spent with Patient Total time spent providing and/or coordinating discharge services: Date of admission: 09/02/18 17:42 Primary care physician: Ariel Pantoja MD - Constitutional Vitals: Temp Pulse Resp BP Pulse Ox 99.0 F 87 16 103/67 97 09/03/18 18:50 09/03/18 18:50 09/03/18 18:50 09/03/18 18:50 09/03/18 18:50 - Attending Attestation I examined this patient and my medical decision-making was reviewed with the Resident Physician. I agree with the documented findings, disposition and treatment plan as described except to the extent set forth below. No acute issues. Arm looks better with less erythema and less tenderness on exam. VS and labs reviewed. Patient stable to be transitioned to PO antibiotics and continue NSAIDs for supportive care of thrombophlebitis. We are arranging GI follow-up for persistent elevated LFTs. Has + Hep A IgM. Does not report any acute symptoms of Hep A at this time. Addendum entered and electronically signed by Kavitha Patton DO 09/04/18 12:06: Mr Parekh was discharged yesterday but did not leave as his transportation/[facility] was not available to pick him up until today. He had nausea without emesis this morning. He had not had a bm for 5d he reported and he was given laxative and zofran. KUB unremarkable. He did have slight uptrend in transaminases though they are generally stable (old labs reviewed as well, hx of hep A dx approx 3 mon ago per pt) He is feeling at baseline and stable for dc to home with friend today. No change in plan for dc as documented above. He will fu with gi as noted above.
[2018-09-03] MEDS: Doxycycline 100 MG CAPSULE PO SCH (19:38)
[2018-09-04] MEDS: *HR* Heparin 5,000 UNIT/ML VIAL SQ SCH ×2 (03:05→09:04)
[2018-09-04 06:41] VITALS: BP 101/65
--- NOTE | 2018-09-04 08:17 | Internal Med Progress Note ---
<Kavitha Patton - Last Filed: 09/04/18 12:08> Hospitalist Progress Note - Encounter Date of Encounter: 09/04/18 - Exam Vitals: Temp Pulse Resp BP Pulse Ox 98.3 F 70 16 101/65 96 09/04/18 06:34 09/04/18 06:34 09/04/18 06:34 09/04/18 06:34 09/04/18 09:14 - Assessment and Plan (1) Substance abuse Status: Acute (2) Cellulitis Status: Acute (3) Thrombophlebitis Status: Acute (4) Mood disorder Status: Acute (5) Hepatitis A Status: Chronic - Time Spent with Patient Total time spent is greater than 50% in coordination of care (as documented) at patient's floor/unit and/or counseling patient: Internal Medicine: Result - Labs CBC & Chem 7: 09/03/18 09:12 09/03/18 09:12 - ABG Interpretation ABG results: PT/INR, D-dimer PT 11.5 Seconds (9.4-12.1) 09/01/18 05:06 - Impressions Impressions KUB X-Ray 09/04/18 10:45 IMPRESSION: No acute abnormality. D/ / 09/04/2018 11:32:09 Jez Diaz MD / [facility] Interpreting Provider: Jez Diaz MD Consult Discharge Plan - Plan Instructions: Cellulitis (DC) Referrals: Abraham Ku MD [Partnered Physician] - 10/03/18 3:30 pm ( ) Ariel Pantoja MD [Primary Care Provider] - 09/10/18 2:15 pm (Follow up as scheduled. ) Prescriptions: Doxycycline 100 mg PO BID 3 Days #6 capsule Naproxen 500 mg PO PRN PRN 5 Days #10 tablet PRN Reason: Analgesia - Attending Attestation I examined this patient and my medical decision-making was reviewed with the Resident Physician Dr Rodriguez. I agree with the documented findings, disposition and treatment plan as described except to the extent set forth below. Mr Parekh was admitted for thrombophlebitis and cellulitis of the arm. He had elevated LFTs with a known dx Hep A, confirmed here. He remains in stable condition for dc today with oral abx and outpt gi follow up. awake, pleasant, no abd pain, emesis, diarrhea. no fevers or chills or arm pain. gen- alert, awake,appears stated age eyes- pupils equal round , no scleral icterus cv- reg rate and rhythm, normal s1,s2, no murmurs appreciated lungs- ctabl, no wheezing, rhonchi or crackles abd- soft, non tender, non distended, + bs neuro- AAOx3 Cellulitis/ Thrombophlebitis- cont doxy to complete course outpt, nsaids, warm compresses Hepatitis A- previously diagnosed per pt, confirmed here- Elevated transaminases this admission in 130s/190s on dc (while these are slightly while some are slightly uptrended since admit, ast/alt significantly higher in May 2018)- He is asx and has gi follow up arranged prior to dc and verablized good understanding of need for follow up. Outpt pcp follow up further diagnoses and plan as noted by resident <Shu Rodriguez - Last Filed: 09/04/18 13:21> Hospitalist Progress Note - Encounter Date of Encounter: 09/04/18 Time of Encounter: 08:10 - Subjective Interval History: Mr. Parekh was seen at bedside this morning. He remained afebrile and normotensive overnight. He complained of mild nausea. He noted his last bowel movement was 5 days ago. He denies abdominal pain. He denies fever, chills, nausea, emesis, shortness of breath, chest pain. - Exam Vitals: Temp Pulse Resp BP Pulse Ox 98.3 F 70 16 101/65 96 09/04/18 06:34 09/04/18 06:34 09/04/18 06:34 09/04/18 06:34 09/04/18 06:34 Exam: General: no acute distress, comfortable in bed HEENT: Head atraumatic, normocephalic, moist mucus membrane Neck: no tracheal deviation Cardiovascualr: Regular rhythm, no pedal edema, no murmurs or gallops Lungs: Clear to auscultation at all lung rivas Abdomen: Soft nontender, nondistended positive bowel sounds Skin: warm and dry, absent rash, absent open wounds and nodules MSK: right medial ventral aspect of the antecubital area is mildly erythematous with area of induration and tender, bilateral lower extremities without any edema Neuro: alert and oriented x 3 Psych: Thought content congruent - Assessment and Plan (1) Cellulitis Status: Acute Assessment and Plan: Complaining of pain localized in the right antecubital fossa. CT of the right arm shows thrombophlebitis of the basilic vein in medial cubital vein with soft tissue stranding and edema. -Blood cultures pending -De-escalated to Doxycycline, day 2 -Continue to use warm compression and elevate the arm -Continue pain control with naproxen -Avoid acetaminophen given elevated liver enzymes (2) Thrombophlebitis Status: Acute Assessment and Plan: Superficial area thrombophlebitis noted on CT imaging. -Continue NSAIDS -Continue to warm compression and elevate the arm (3) Substance abuse Status: Acute Assessment and Plan: History of substance abuse and currently uses methamphetamine. His AST and ALT appear to be mildly elevated. -We will recheck CMP in the morning -Positive for hepatitis A (4) Mood disorder Status: Acute Assessment and Plan: Past medical history of bipolar and depression disorder. He is not on any mood stabilizers at home. (5) Nausea Status: Acute Assessment and Plan: Complained of nausea today. Denied emesis or poor appetite. He did note his last bowel movement was 5 days prior. He received a senna plus and zofran and his nausea resolved. He additionally had a bowel movement. He underwent a KUB which did not elicit any findings. The nausea was likely due to constipation which resolved after a bowel movement. (6) Hepatitis A Status: Chronic Assessment and Plan: Not acute. His liver enzymes were elevated during this admission. This morning ALT was 136 and AST was 74. His hepatitis panel was positive for hepatitis A. He noted a few months ago he tested positive for a hepatitis but was unsure and was not symptomatic at that time. He is denying diarrhea and is not complaining of any abdominal symptoms. -Informed him of modality of transmission -Has a GI follow up outpatient DVT Prophylaxis: SubQ Heparin - Time Spent with Patient Total time spent is greater than 50% in coordination of care (as documented) at patient's floor/unit and/or counseling patient: Internal Medicine: Result - Labs CBC & Chem 7: 09/03/18 09:12 09/03/18 09:12 Labs: Short CBC 09/03/18 Range/Units 09:12 WBC 4.7 (4.3-11.1) K/mcL Hgb 13.9 (12.9-16.9) g/dL Hct 42.2 (37.5-50.1) % Plt Count 199 (140-400) K/mcL Neutrophils # 3.3 (1.6-8.9) K/mcL BMP 09/03/18 09:12 Sodium 134 L Potassium 4.2 Chloride 100 Carbon Dioxide 32 H BUN 7 Creatinine 0.96 Glucose 208 H Calcium 9.0 Liver Function 09/03/18 Range/Units 09:12 Total Bilirubin 0.4 (0.3-1.0) mg/dL AST 138 H (13-39) Units/L ALT 196 H (7-52) Units/L Alkaline Phosphatase 83 (34-104) Units/L Albumin 2.9 L (3.5-5.7) g/dL - ABG Interpretation ABG results: PT/INR, D-dimer PT 11.5 Seconds (9.4-12.1) 09/01/18 05:06 <Kavitha Patton - Last Filed: 09/04/18 12:08> (2) Cellulitis Qualifiers: Site of cellulitis: extremity Site of cellulitis of extremity: upper extremity Laterality: right Qualified Code(s): L03.113 - Cellulitis of right upper limb (5) Hepatitis A Qualifiers: Hepatic coma status: without hepatic coma Qualified Code(s): B15.9 - Hepatitis A without hepatic coma <MichaelShu - Last Filed: 09/04/18 13:21> (1) Cellulitis Qualifiers: Site of cellulitis: extremity Site of cellulitis of extremity: upper extremity Laterality: right Qualified Code(s): L03.113 - Cellulitis of right upper limb (6) Hepatitis A Qualifiers: Hepatic coma status: without hepatic coma Qualified Code(s): B15.9 - Hepatitis A without hepatic coma
[2018-09-04] MEDS ORDERED: Sennosides/Docusate Sodium TABLET PO SCH ×2 (09:00→15:00)
[2018-09-04] MEDS: Doxycycline 100 MG CAPSULE PO SCH (09:04)
[2018-09-04] MEDS ORDERED: Ondansetron Oral Soln 2 MG/2.5 ML ORAL.SYG PO ONE (10:44)
[2018-09-04] MEDS ORDERED: Ondansetron Oral Soln 2 MG/2.5 ML ORAL.SYG PO PRN (11:14)
== END 2018-09-04 12:20 | disposition home or self-care (01) | DRG 603 ==
LOC: EMEROOARM 17:09 → 3ANU 17:09 → SUATTDRO 09-02 17:42
PROVIDERS: ADMIT Internal Medicine; ATTEND Internal Medicine

== ENCOUNTER 2019-09-05 03:18 | Inpatient (IN) ==
[2019-09-05] MEDS ORDERED: 0.9 % Sodium Chloride 1,000 ML IVC ONE (03:26)
[2019-09-05 03:44] LABS: ABG Base Excess -1 mEq/L (-2 to 3); ABG HCO3 20 mEq/L (21-27); ABG Oxygen Saturation 98 % (95-98); ABG PCO2 26 mmHg (35-45); ABG PH 7.51 pH Units (7.32-7.45); ABG PO2 96 mmHg (85-104); ABG TCO2 21 mEq/L (20-26)
[2019-09-05 03:57] LABS: Basophils # 0.1 K/mcL (0.0-0.2); Basophils % 0.8 %; Eosinophils % 0.2 %; Hematocrit 49.7 % (37.5-50.1); Hemoglobin 17.3 g/dL (12.9-16.9); Immature Granulocytes % 1.1 % (0-4); Lymphocytes # 3.1 K/mcL (0.6-4.6); Lymphocytes % 23.8 %; Mean Corpuscular HGB Conc 34.8 g/dL (31.6-35.5); Mean Corpuscular Hemoglobin 30.8 pg (28.0-33.3); Mean Corpuscular Volume 88.6 fL (83.0-100.0); Mean Platelet Volume 10.7 fL (9.4-12.4); Neutrophils # 8.6 K/mcL (1.6-8.9); Platelet Count 354 K/mcL (140-400); Red Blood Count 5.61 M/mcL (4.19-5.50); Red Cell Distribution Width 11.7 % (11.5-14.5); Segmented Neutrophils % 66.1 %
[2019-09-05] MEDS ORDERED: Sodium Bicarbonate 150 MEQ in D5% in Water 1,000 ML IVC SCH (04:00)
[2019-09-05 04:15] LABS: Acetaminophen < 10 mcg/mL (10-20); Alanine Aminotransferase 27 Units/L (7-52); Albumin 4.4 g/dL (3.5-5.7); Albumin/Globulin Ratio 1.2 (1.1-2.2); Alkaline Phosphatase 103 Units/L (34-104); Aspartate Amino Transferase 23 Units/L (13-39); BUN/Creatinine Ratio 3 (6-26); Bilirubin,Direct 0.1 mg/dL (0.0-0.2); Bilirubin,Indirect 0.2 mg/dL (0.0-1.0); Bilirubin,Total 0.3 mg/dL (0.3-1.0); Blood Urea Nitrogen 3 mg/dL (6-20); Carbon Dioxide 20 mEq/L (23-29); Chloride 107 mEq/L (98-107); Ethanol < 10 mg/dL (Less than 10); Globulin 3.7 g/dL (2.4-3.5); Glucose 110 mg/dL (70-105); Osmolality,Calculated 289 (280-300); Potassium 3.6 mEq/L (3.5-5.1); Salicylate 68.3 mg/dL (15.0-30.0); Sodium 141 mEq/L (136-145); Total Protein 8.1 g/dL (6.4-8.9); eGFR For African Americans > 60 (> 60); eGFR For Non-African Americans > 60 (> 60)
[2019-09-05 04:41] LABS: Bilirubin,Urine Negative (Negative); Blood,Urine Negative (Negative); Clarity,Urine Clear (Clear); Color,Urine Yellow (Yellow); Glucose,Urine (UA) Normal (Normal); Ketones,Urine Negative (Negative); Leukocyte Esterase,Urine Negative (Negative); Nitrite,Urine Negative (Negative); PH,Urine 6.5 pH Units (5.0-8.0); Protein,Urine Negative (Neg-Trace); Specific Gravity,Urine 1.011 (1.010-1.025); Urobilinogen,Urine Normal (Normal)
[2019-09-05] MEDS ORDERED: Ondansetron 4 MG/2 ML VIAL IVP ONE (04:45)
[2019-09-05 04:56] LABS: Amphetamine Screen,Urine Positive ng/mL (Cutoff=1000); Barbiturate Screen,Urine Negative ng/mL (Cutoff=200); Benzodiazepines Screen,Urine Negative ng/mL (Cutoff=200); Cannabinoid Screen,Urine Negative ng/mL (Cutoff = 50); Cocaine Screen,Urine Negative ng/mL (Cutoff= 300); Opiate Screen,Urine Negative ng/mL (Cutoff=300); Phencyclidine Screen,Urine Negative ng/mL (Cutoff=25)
[2019-09-05] MEDS ORDERED: Naloxone 0.4 MG/ML INJ IVP PRN (05:36)
[2019-09-05] MEDS ORDERED: Ringers Solution, Lactated 1,000 ML IVC SCH (06:00)
[2019-09-05 06:39] LABS: VBG HCO3 20 mEq/L (21-27); VBG PCO2 25 mmHg (41-51); VBG PO2 125 mmHg (25-50)
[2019-09-05 06:42] LABS: Basophils # 0.1 K/mcL (0.0-0.2); Basophils % 0.5 %; Eosinophils % 0.2 %; Hematocrit 49.1 % (37.5-50.1); Hemoglobin 17.1 g/dL (12.9-16.9); Immature Granulocytes % 1.1 % (0-4); Lymphocytes # 2.2 K/mcL (0.6-4.6); Lymphocytes % 13.4 %; Mean Corpuscular HGB Conc 34.8 g/dL (31.6-35.5); Mean Corpuscular Hemoglobin 30.8 pg (28.0-33.3); Mean Corpuscular Volume 88.5 fL (83.0-100.0); Mean Platelet Volume 10.9 fL (9.4-12.4); Monocytes # 0.9 K/mcL (0.0-1.3); Monocytes % 5.4 %; Neutrophils # 12.8 K/mcL (1.6-8.9); Platelet Count 353 K/mcL (140-400); Red Blood Count 5.55 M/mcL (4.19-5.50); Red Cell Distribution Width 11.7 % (11.5-14.5); Segmented Neutrophils % 79.4 %; White Blood Count 16.1 K/mcL (4.3-11.1)
[2019-09-05 06:48] LABS: Alanine Aminotransferase 23 Units/L (7-52); Albumin 4.4 g/dL (3.5-5.7); Albumin/Globulin Ratio 1.3 (1.1-2.2); Alkaline Phosphatase 95 Units/L (34-104); Aspartate Amino Transferase 22 Units/L (13-39); BUN/Creatinine Ratio 5 (6-26); Bilirubin,Total 0.3 mg/dL (0.3-1.0); Blood Urea Nitrogen 4 mg/dL (6-20); Calcium 9.5 mg/dL (8.6-10.3); Carbon Dioxide 18 mEq/L (23-29); Chloride 109 mEq/L (98-107); Globulin 3.4 g/dL (2.4-3.5); Glucose 127 mg/dL (70-105); Magnesium 1.9 mg/dL (1.6-2.6); Osmolality,Calculated 294 (280-300); Phosphorous 3.4 mg/dL (2.7-4.5); Potassium 4.1 mEq/L (3.5-5.1); Sodium 143 mEq/L (136-145); Total Protein 7.8 g/dL (6.4-8.9); eGFR For African Americans > 60 (> 60); eGFR For Non-African Americans > 60 (> 60)
[2019-09-05] MEDS ORDERED: Potassium Chloride Elixir 20 MEQ/15 ML UDC PO ONE (06:50)
[2019-09-05 11:29] LABS: VBG HCO3 20 mEq/L (21-27); VBG PCO2 32 mmHg (41-51); VBG PH 7.41 pH Units (7.32-7.42); VBG PO2 48 mmHg (25-50)
[2019-09-05 11:45] LABS: BUN/Creatinine Ratio 6 (6-26); Blood Urea Nitrogen 6 mg/dL (6-20); Calcium 9.3 mg/dL (8.6-10.3); Carbon Dioxide 20 mEq/L (23-29); Chloride 107 mEq/L (98-107); Glucose 129 mg/dL (70-105); Osmolality,Calculated 293 (280-300); Potassium 3.8 mEq/L (3.5-5.1); Sodium 142 mEq/L (136-145); eGFR For African Americans > 60 (> 60); eGFR For Non-African Americans > 60 (> 60)
[2019-09-05] MEDS: D5% in 0.45% NACL w KCl 20 MEQ/1,000 ML MLS IVC SCH (13:26)
[2019-09-05 14:44] LABS: VBG HCO3 20 mEq/L (21-27); VBG PCO2 24 mmHg (41-51); VBG PH 7.52 pH Units (7.32-7.42); VBG PO2 90 mmHg (25-50)
[2019-09-05 15:11] LABS: BUN/Creatinine Ratio 7 (6-26); Blood Urea Nitrogen 8 mg/dL (6-20); Calcium 8.9 mg/dL (8.6-10.3); Carbon Dioxide 20 mEq/L (23-29); Chloride 105 mEq/L (98-107); Glucose 158 mg/dL (70-105); Osmolality,Calculated 296 (280-300); Potassium 3.5 mEq/L (3.5-5.1); Sodium 142 mEq/L (136-145); eGFR For African Americans > 60 (> 60); eGFR For Non-African Americans > 60 (> 60)
[2019-09-05] MEDS: Sodium Bicarbonate 150 MEQ in D5% in Water 1,000 ML IVC SCH ×2 (15:54→23:00)
[2019-09-05] MEDS ORDERED: *HR* Heparin 5,000 UNIT/ML VIAL ONE (16:16)
[2019-09-05] MEDS ORDERED: *HR* Heparin 10,000 UNIT/10 ML VIAL IV PRN (17:03)
[2019-09-05] MEDS ORDERED: 0.9 % Sodium Chloride 250 ML IVC PRN (17:03)
[2019-09-05 17:06] LABS: Blood Urea Nitrogen 8 mg/dL (6-20); Calcium 8.4 mg/dL (8.6-10.3); Carbon Dioxide 23 mEq/L (23-29); Chloride 107 mEq/L (98-107); Glucose 132 mg/dL (70-105); Osmolality,Calculated 292 (280-300); Potassium 3.1 mEq/L (3.5-5.1); Sodium 141 mEq/L (136-145)
[2019-09-05] MEDS ORDERED: 0.9 % Sodium Chloride 1,000 ML PRIME SCH (17:15)
[2019-09-05 18:41] LABS: VBG HCO3 20 mEq/L (21-27); VBG PCO2 20 mmHg (41-51); VBG PH 7.62 pH Units (7.32-7.42); VBG PO2 226 mmHg (25-50)
[2019-09-05 19:08] LABS: BUN/Creatinine Ratio 7 (6-26); eGFR For African Americans > 60 (> 60); eGFR For Non-African Americans > 60 (> 60)
[2019-09-05 19:12] LABS: Hepatitis B Surface Antibody > 850.00 mIU/mL
[2019-09-05 19:23] LABS: Hepatitis B Surface Antigen Nonreactive (Nonreactive)
[2019-09-05 21:34] LABS: BUN/Creatinine Ratio 8 (6-26); Blood Urea Nitrogen 7 mg/dL (6-20); Calcium 8.4 mg/dL (8.6-10.3); Carbon Dioxide 26 mEq/L (23-29); Chloride 101 mEq/L (98-107); Glucose 130 mg/dL (70-105); Osmolality,Calculated 284 (280-300); Potassium 2.7 mEq/L (3.5-5.1); Sodium 137 mEq/L (136-145); eGFR For African Americans > 60 (> 60); eGFR For Non-African Americans > 60 (> 60)
[2019-09-05] MEDS ORDERED: Calcium Gluconate 1gm/50mL 1 GM/50 ML BAG IVPB ONE (22:30)
[2019-09-05 22:55] LABS: VBG HCO3 29 mEq/L (21-27); VBG PCO2 32 mmHg (41-51); VBG PH 7.56 pH Units (7.32-7.42); VBG PO2 209 mmHg (25-50)
[2019-09-05] MEDS: Potassium Chloride Elixir 20 MEQ/15 ML UDC PO ONE ×2 (23:02→23:17)
[2019-09-06] MEDS: D5% in 0.45% NACL w KCl 20 MEQ/1,000 ML MLS IVC SCH ×2 (01:32→18:37)
[2019-09-06 03:35] LABS: VBG HCO3 36 mEq/L (21-27); VBG PCO2 48 mmHg (41-51); VBG PH 7.48 pH Units (7.32-7.42); VBG PO2 55 mmHg (25-50)
[2019-09-06] MEDS: Sodium Bicarbonate 150 MEQ in D5% in Water 1,000 ML IVC SCH ×3 (05:45→14:05)
[2019-09-06 06:21] LABS: BUN/Creatinine Ratio 8 (6-26); Blood Urea Nitrogen 9 mg/dL (6-20); Calcium 8.1 mg/dL (8.6-10.3); Carbon Dioxide 31 mEq/L (23-29); Chloride 100 mEq/L (98-107); Glucose 130 mg/dL (70-105); Osmolality,Calculated 286 (280-300); Potassium 2.6 mEq/L (3.5-5.1); Sodium 138 mEq/L (136-145); eGFR For African Americans > 60 (> 60); eGFR For Non-African Americans > 60 (> 60)
[2019-09-06] MEDS ORDERED: Calcium Gluconate 1gm/50mL 1 GM/50 ML BAG IVPB ONE (06:36)
[2019-09-06 07:39] LABS: ABG Base Excess 10 mEq/L (-2 to 3); ABG HCO3 34 mEq/L (21-27); ABG Oxygen Saturation 100 % (95-98); ABG PCO2 41 mmHg (35-45); ABG PH 7.53 pH Units (7.32-7.45); ABG PO2 147 mmHg (85-104); ABG TCO2 35 mEq/L (20-26)
[2019-09-06] MEDS ORDERED: Potassium Chloride 40 MEQ, Lidocaine 1% 2 ML in 0.9 % Sodium Chloride 500 ML IVPB ONE (07:58)
[2019-09-06 14:39] LABS: BUN/Creatinine Ratio 7 (6-26); Blood Urea Nitrogen 7 mg/dL (6-20); Calcium 8.8 mg/dL (8.6-10.3); Carbon Dioxide 34 mEq/L (23-29); Chloride 101 mEq/L (98-107); Glucose 129 mg/dL (70-105); Osmolality,Calculated 290 (280-300); Sodium 140 mEq/L (136-145); eGFR For African Americans > 60 (> 60); eGFR For Non-African Americans > 60 (> 60)
[2019-09-07 05:38] LABS: Hematocrit 39.6 % (37.5-50.1); Mean Corpuscular HGB Conc 34.3 g/dL (31.6-35.5); Mean Corpuscular Hemoglobin 30.3 pg (28.0-33.3); Mean Corpuscular Volume 88.2 fL (83.0-100.0); Mean Platelet Volume 10.9 fL (9.4-12.4); Platelet Count 218 K/mcL (140-400); Red Blood Count 4.49 M/mcL (4.19-5.50); Red Cell Distribution Width 12.1 % (11.5-14.5); White Blood Count 8.8 K/mcL (4.3-11.1)
[2019-09-07 05:40] LABS: Hemoglobin 13.6 g/dL (12.9-16.9)
[2019-09-07 06:17] LABS: BUN/Creatinine Ratio 10 (6-26); Blood Urea Nitrogen 9 mg/dL (6-20); Calcium 9.1 mg/dL (8.6-10.3); Carbon Dioxide 32 mEq/L (23-29); Chloride 100 mEq/L (98-107); Glucose 116 mg/dL (70-105); Osmolality,Calculated 286 (280-300); Potassium 3.4 mEq/L (3.5-5.1); Sodium 138 mEq/L (136-145); eGFR For African Americans > 60 (> 60); eGFR For Non-African Americans > 60 (> 60)
[2019-09-07 08:50] VITALS: BP 116/69
== END 2019-09-07 15:36 | disposition home or self-care (01) | DRG 918 ==
LOC: EMEROOARM 03:18 → 3BNU 03:18
PROVIDERS: ADMIT Internal Medicine; ATTEND Internal Medicine